=== PATIENT | female | born 1955 | race Caucasian/White ===

== ENCOUNTER 2022-08-04 08:15 | Outpatient (CLI) | payer MEDICARE, BC, SELFPAY ==
--- NOTE | 2022-08-04 08:15 | CRLHL7_ITS ---
For Patients: As a result of the Century Cures Act, medical imaging exams and procedure reports are released immediately into your electronic medical record. You may view this report before your referring provider. If you have questions, please contact your health care provider. HISTORY: Left leg pain. Abnormal x-ray findings. TECHNIQUE: Routine long bone protocol. FINDINGS: There is a benign pedunculated osteochondroma arising from the region of the proximal metaphysis of the left fibula angled distally. This has maximum length on the order of 3 cm. No cartilage cap is identified. No findings for bony stress reaction, fracture or tumor elsewhere. No muscular or subcutaneous fat abnormality is noted. 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 IMPRESSION: Benign pedunculated osteochondroma of the proximal fibula. No findings of concern for malignancy. Dictated by Freddy Andrew MD @ 08/05/2022 10:02:52 AM (Electronically Signed)
--- OUTSIDE RECORDS SUMMARY | 2022-08-04 08:17 | XMS_ITS | Encounter Summary ---
:1955 Author Organization [facility] Address [address], [place] [address] Care Team Providers Name Role Phone Unavailable Primary Care Provider Unavailable Reason for Visit Reason Comments Skin Check Encounter Details Date Type Department Care Team Description 07/04/2019 Initial Consult Ravi Sunshine skin (Primary Dx); Dermatology AMD Seborrheic keratosis; [address] [employer] [facility] [place] [address] [facility] [phone] [place], [place] [address] Social History Tobacco Use Types Packs/Day Years Used Date Smoking Tobacco: Never Assessed Sex Assigned at Date Recorded Not on file documented as of this encounter Patient Instructions Patient InstructionsMelanie Fernandez MA - 07/04/2019 9:00 AM CDT Liquid Nitrogen Treatment (Cryotherapy) How it Works: Liquid nitrogen (Cryotherapy) is a cold liquified gas, with a temperature of -321?? F.It's used to freeze and destroy superficial skin growths. Treatment Goals: Treatment with liquid nitrogen may cause the treated area to appear red or swollen anywhere from a few hours to a couple of days. Usually a scab/crust forms, which will fall off by itself in 1 to 3 weeks. The skin growth will fall off with the scab, leaving healthy new skin. This new skin is typically criminal justice professor, and will usually blend in color-cerda over time. You May Experience: Liquid nitrogen causes stinging and mild pain while the growth is being frozen and then thaws. The worst discomfort occurs during the first five to 10 minutes of the procedure, but can sometimes last significantly longer. A blister, sometimes a blood blister, may form. If this occurs, you may pop the blister with a cleanneedle, but leave the roof of the blister intact on the skin. If this does happen, keep the area covered with a Band-Aid and use Vaseline or antibiotic ointment. Areas that are prone to blistering are the eyelids and hands. The blisters and swelling are part of the treatment and will gradually heal. No special care is needed, you can wash as usual and return to your normal skin care routine. You may use makeup or other cosmetics. You also may experience some redness, swelling, tenderness, weeping,or crusts/scabs. Try not to pick at, itch, or scrub the area. If the treated area feels sore or irritated, you can keep it covered or even use some [id number] hydrocortisone or plain vaseline to make it feel better. Avoid excessive sun exposure since this can result in persistent darkening at the treated sites. PLEASE NOTE: Sometimes, growths have to be re-frozen. If your growth is not cured by liquid nitrogen, please make a return appt. Uncommon: Call the nurse's line below if you have any white, green, or yellow fluid drainage or any sign of an apparent infection. Nurse Line: Skin Cancer: You can get skin cancer anywhere you have skin, regardless of amount of sun exposure. Skin cancer can present many ways, such as a sore that doesn't heal, a pimple that never goes away, a bump that is tender or growing, or pink, scaly patches that never go away. A spot that is: an ugly duckling meaning it doesn't look like your other spots, growing or changing quickly, changing significantly overtime, bleeding, tender or painful. There are three different types of skin cancer: Melanoma: The mole that has gone bad, can look like the ugly duckling mole, or, the mole that doesn't look like your other moles. It can be a mole that is growing quickly or asymmetrically, gettingmultiple dark brown colors, bleeding, or has irregular borders. Basal cell carcinoma (BCC): BCCs may look like a flesh-colored, jamal-like bump or a pinkish patch of skin. BCCs are common on the head, neck, and arms, yet can form anywhere on the body, including thechest, abdomen, and legs. Squamous cell carcinoma (SCC): SCCs can be scaly, pink bumps that are tender and growing. They tend to form on skin that gets frequent sun exposure, such as the rim of the ear, face, neck, arms, chest,and back. SCC have the potential to spread from the skin. Sun Protection Sunscreen- At a minimum SPF 30 for midday sun exposure. For sensitive skin or previous issues with sunscreens try sunscreen with only zinc and/or titanium as active ingredients (typically sensitive skin or baby sunscreens. Photoprotective Clothing- Contain a UPF rating (like SPF but for clothing). This clothing is quick-dry, breathable, good for use at the beach or pool. This clothing can be expensive but significantlydecreases the amount of sunscreen needed. Regular wide-brim hats and long sleeve shirts are also beneficial but may not be as tolerable in theheat. Avoiding midday sun from 10am to 4pm can decrease your amount of UV exposure and decrease your risk for skin cancer and sun damage. Sunscreen What does broad spectrum mean? The best sunscreens protect against all UVB (Burning) rays and UVA (Aging, cAncer, tAnning) rays. What does SPF mean? SPF stands for ???Sun Protection Factor?? and represents the ability to screen only UVB (burning) rays. UVB rays are mostly blocked in all sunscreens, but only those that contain titanium dioxide, zinc oxide, mexoryl or Parsol 1789 (avobenzone) block the UVA spectrum. Zinc oxide is the best of all. Even though a sunscreen is labeled ???UVA/UVB Protection?? that is not entirely accurate because evenpartial protection allows this label. What SPF should I chose? Aim to get a sunscreen that is at least sun protection factor (SPF) 30. SPF 15 provides about 92-93%coverage, SPF 30 about 95-97% coverage, and SPF 45 about 98% coverage. That is to say, SPF 30 is nottwice as good as SPF 15; think of it as a curve graph. If covering your whole body, you should be using 30grams, or one ounce, which is how much is in one shot glass. That???s a THICK layer! Combination sunscreen-insect repellants are not recommended as sunscreen needs to be reapplied every2 hours; insect repellant does not. Sunscreen is not recommended for infants under the age of 6 months. Use clothing, shade and sun avoidance for small infants. Sunscreen clothing and hats are also important for people of all ages. Note that [employer] is a company based out of [place], [place]! Other good items can be found in stores and on-line. Sunscreen sprays are best for re-application only. Most people do not spray enough on to get good enough protection. Recommendation: Use a lotion-based sunscreen to get a good first/base layer. Vitamin D: We get vitamin D through the skin. If you do not get enough sun in the summer to get rayo lines, you should take a vitamin D supplement: 400units for children and 1000units for adults per day. UVA BLOCKERS: Make sure your sunscreen has one of these active ingredients. Everything else in the ???active ingredients?? box of a sunscreen label blocks UVB only. Zinc Oxide (preferred) Titanium dioxide Parsol 1789 (avobenzone) Mexoryl Examples of some good sunscreens Absolutely-natural.com Aveeno Baby Trimble sunscreens Yumiko Blue Lizard BullFrog CaliforniaBaby Coppertone Spectra3 [facility] Elta Fallene/TotalBlock Neutrogena NoAd Vanicream WaterBabies Sticks work great, like Neutrogena pure and free baby SPF 60 stick documented in this encounter Progress Notes Ravi Moody MD - 07/04/2019 9:00 AM CDT DERMATOLOGY VISIT CC: Chief Complaint Patient presents with ??? Skin Check Subjective: Rhonda Berumen is a 63 y.o. female here for skin examination. She is a new patient to Dermatology Clinic. I actually see her who has a history of melanoma. She has a number of brown spots on the trunk that she would like evaluated. She has a history of breast cancer on the right andradiation therapy. She is concerned about the moles under the right breast. She has a few growths on the left forehead and evangelical that are cosmetically bothersome. She is interested in treatment. Otherwise well without further skin complaints. No personal history of skin cancer. Family history of actinic keratoses in her mother. Social history: She is not very good with sunscreen. Objective: Pleasant and cooperative, no acute distress. Skin examination of the head, neck, chest, back, abdomen, all 4 extremities was performed. Mild photodamage over the face neck. She has less than 10 melanocytic nevi with benign features on dermoscopy. She has many, waxy, brown stuck on papules and plaques over the trunk and extremities. In the right inframammary crease she has multiple brown and black stuck on waxy plaques with benign features on dermoscopy. On the left evangelical and forehead she has 4, waxy stuck on papules. A: Rhonda was seen today for skin check. Diagnoses and all orders for this visit: Sun-damaged skin Seborrheic keratosis Multiple pigmented nevi P: Clinical impression reviewed with patient. I reviewed sun protective measures including seeking shade, photo protective clothing, avoiding midday sun, sunscreen, polarized sunglasses. After written informed consent cosmetic treatment of 4 seborrheic keratoses on the left forehead andtemple was performed with liquid nitrogen cryotherapy, single freeze thaw cycle. Postop wound care provided. Return to clinic will be as needed Ravi Moody MD Dermatology - [facility] 07/04/2019 This note was created using voice recognition software and may contain unintended word substitutions. Meds: Reviewed. Problem List: Rhonda does not have a problem list on file. documented in this encounter Plan of Treatment Not on filedocumented as of this encounter Visit Diagnoses Diagnosis Sun-damaged skin - Primary Other chronic dermatitis due to solar ra diation Seborrheic keratosis Other seborrheic keratosis Multiple pigmented nevi Benign neoplasm of skin, site unspecifie d documented in this encounter
--- OUTSIDE RECORDS SUMMARY | 2022-08-04 08:17 | XMS_ITS | Clinical Summary ---
:1955 Author Organization [facility] Address [address] [place] [address] Care Team Providers Name Role Phone Unavailable Primary Care Provider Unavailable Source Comments You are receiving this document as you are listed as the primary care provider,follow-up provider, or the patient has been referred to you for consultation.This is in compliance with the Medicare and Medicaid EHR Incentive Program,which states Providers who transition their patient to another setting of careor provider of care or refers their patient to another provider of care shouldprovide summarycare record for each transition of care or referral. [facility] Allergies No known active allergies Medications Medication Sig Dispensed Refills Start Date End Date Status simvastatin (ZOCOR) 20 Take 20 mg by 0 12/15/2021 Active MG tablet mouth daily at bedtime. triamcinolone Apply topically 0 12/02/2021 Active acetonide (KENALOG) two times daily as 0.1 % ointment needed. Active Problems No known active problems Social History Tobacco Use Types Packs/Day Years Used Date Smoking Tobacco: Never Assessed Sex Assigned at Date Recorded Not on file Plan of Treatment Health Maintenance Due Date Last Done Comments Colon Cancer Screening Plan 1955 Due Hep C Screening (Preventive 1955 Services) Medicare Annual Wellness 1955 Visit Mammogram 1955 COVID-19 Vaccine (#1) [birth year]09/1956 Cholesterol 1999 Dexa 2019 Pneumococcal 65+ Yrs (3) 11/21/2021 11/21/2020, 07/18/2010 Influenza (#1) 2022 07/29/2021, 11/21/2020, 08/06/2020, Additional history exists DTaP/Tdap/Td (3 - Tdap) 07/11/2024 07/11/2014, 03/05/2009 Zoster/Shingles Completed 09/26/2019, 07/04/2019, 03/18/2015 HepA Aged Out No longer eligib le based on patient 's age to complete this topic HepB Aged Out No longer eligib le based on patient 's age to complete this topic Hib Aged Out No longer eligib le based on patient 's age to complete this topic IPV (Polio) Aged Out No longer eligib le based on patient 's age to complete this topic MCV4 Aged Out No longer eligib le based on patient 's age to complete this topic Insurance Payer Benefit Plan / Subscriber ID Effective Dates Phone Addre ss Type Group MEDICARE MEDICARE [id number] 2019-Presen [phone] [facility] BCBS BCBS [place] [employer] [id number] 2019-Presen [phone] [address] [address] Medicare BLUE t [address] [place] [address] Rhonda Berumen MVA/TPL Self [address] (Home) [place] [id number] Rhonda Berumen Non-Covered/Pre Self [address] pay (Home) [place] [id number]
--- OUTSIDE RECORDS SUMMARY | 2022-08-04 08:17 | XMS_ITS | Encounter Summary ---
:1955 Author [facility] Address [address] [address] Care Team Providers Name Role Phone Unavailable Primary Care Provider Unavailable Reason for Visit Reason Comments Skin Exam Fbe, mole under right breast being monitored Encounter Details Date Type Department Care Team Description 02/11/2022 Office Visit Ravi Sunshine, Kanu anne skin (Primary Dx); Dermatology MD Multiple pigmented nevi; [id number] [facility] [place] [address] [address] [phone] [place], [place] [id number] (Wo rk) Social History Tobacco Use Types Packs/Day Years Used Date Smoking Tobacco: Never Assessed Sex Assigned at Date Recorded Not on file documented as of this encounter Progress Notes Ravi Moody MD - 02/11/2022 9:45 AM CDT DERMATOLOGY VISIT Rhonda Berumen 1955 [id number] Chief Complaint Patient presents with ??? Skin Exam Fbe, mole under right breast being monitored Problem List None Subjective: 66 y.o. female Here today for follow-up. No personal history of skin cancer. I see her who has a history of melanoma. She has 1 darker brown spot on the right breast that she is monitoring. She has a history of breast cancer on the right as well as radiation therapy. Noted lesions of concern. Family history of actinic keratoses in her mother. Objective: Skin examination of the head, neck, chest, back, abdomen, 4 extremities was performed. Mild photodamage over the face and neck. She has less than 10 melanocytic nevi without concerning features on dermoscopy. She has many waxy papules and plaques over the trunk and extremities. On right inferior breast she has a brown and black stuck on waxy plaque with milia like cysts, commute to like openings, and cerebriform surface on dermoscopy. Assessment/Plan: 1. Sun-damaged skin 2. Multiple pigmented nevi 3. Seborrheic keratoses Clinical impression reviewed with patient. Reassurance provided. Monitor lesions for change/recurrence. Sun protection and sunscreen recommended. Skin cancer awareness reviewed. Seborrheic keratosis of the right breast: Clinical impression reviewed. Monitor. Return to clinic as needed Ravi Moody MD Dermatology - [facility] 02/11/2022 This note was created using voice recognition software and may contain unintended word substitutions. documented in this encounter Plan of Treatment Not on filedocumented as of this encounter Visit Diagnoses Diagnosis Sun-damaged skin - Primary Other chronic dermatitis due to solar ra diation Multiple pigmented nevi Benign neoplasm of skin, site unspecifie d Seborrheic keratoses documented in this encounter
--- OUTSIDE RECORDS SUMMARY | 2022-08-04 08:18 | XMS_ITS | Encounter Summary ---
:1955 Author Organization [facility] Address [address] [place] [address] Care Team Providers Name Role Phone Darryl Stallings M.D. Primary Care Provider [phone] Reason for Referral Outpatient (Routine) - Closed Specialty Diagnoses / Procedures Referred By Contact Refer red To Contact Family Medicine Darryl Stallings [facility] [place] M.D. [address] [place] [address] Referral ID Status Reason Start Date Expiration Date Visits Requ ested Visits Authorized [id number] Closed 07/09/2020 07/09/2021 1 1 Encounter Details Date Type Department Care Team Description 07/09/2020 Orders Only [facility] Darryl Stallings M.B.B.S., M.D. [address] [place], [place] [phone] (Wo rk) Social History Tobacco Use Types Packs/Day Years Used Date Smoking Tobacco: Never Smokeless Tobacco: Never Alcohol Use Standard Drinks/Week Comments Yes 1 (1 standard drink = 0.6 oz pure alcoho l) Alcohol Habits Answer Date Recorded How often do you have a drink containing alcohol? Monthly or less 04/19/2022 How many drinks containing alcohol do you have on a 1 or 2 04/19/2022 typical day when you are drinking? How often do you have six or more drinks on one Never 04/19/2022 occasion? Social Isolation Answer Date Recorded In a typical week, how many times do you Twice a week 04/19/2022 talk on the phone with family, friends, or neighbors? How often do you get together with friends Three times a wee k 04/19/2022 or relatives? How often do you attend gnosticist or taoism More than 4 time s per year 04/19/2022 services? Do you belong to any clubs or organizations Yes 04/19/2022 such as gnosticist groups, unions, fraternal or athletic groups, or school groups? How often do you attend meetings of the More than 4 times pe r year 04/19/2022 clubs or organizations you belong to? Are you now , , , 04/19/2022 , never or living with a partner? Physical Activity Answer Date Recorded On average, how many days per week do you engage in moderate to 5 days 04/19/2022 strenuous exercise (like walking fast, running, jogging, dancing, swimming, biking, or other activities that cause a light or heavy sweat)? On average, how many minutes do you engage in exercise at th is 50 min 04/19/2022 level? Stress Answer Date Recorded Do you feel stress - tense, restless, nervous, or To some ex tent 04/19/2022 anxious, or unable to sleep at night because your mind is troubled all the time - these days? Financial Resource Strain Answer Date Recorded How hard is it for you to pay for the very basics like Not v mitul hard 04/19/2022 food, housing, medical care, and heating? Intimate Partner Violence Answer Date Recorded Within the last year, have you been afraid of your partner o r No 04/19/2022 ex-partner? Within the last year, have you been humiliated or emotionall y No 04/19/2022 abused in other ways by your partner or ex-partner? Within the last year, have you been kicked, hit, slapped, or No 04/19/2022 otherwise physically hurt by your partner or ex-partner? Within the last year, have you been raped or forced to have any No 04/19/2022 kind of sexual activity by your partner or ex-partner? Food Insecurity Answer Date Recorded Within the past 12 months, you worried that your food would Never true 04/19/2022 run out before you got money to buy more. Within the past 12 months, the food you bought just didn't N ever true 04/19/2022 last and you didn't have money to get more. Transportation Needs Answer Date Recorded In the past 12 months, has lack of transportation kept you f rom No 04/19/2022 medical appointments or from getting medications? In the past 12 months, has lack of transportation kept you f rom No 04/19/2022 meetings, work, or getting things needed for daily living? Housing Stability Answer Date Recorded In the last 12 months, was there a time when you were not ab le No 04/19/2022 to pay the mortgage or rent on time? In the last 12 months, how many places have you lived? 1 04/19/2022 In the last 12 months, was there a time when you did not hav e a No 04/19/[address] sleep or slept in a assisted (including now)? Education Answer Date Recorded What is the highest level of school Associate degree: academ program 06/27/2020 you have completed or the highest degree you have received? Sex Assigned at Date Recorded Female 06/28/2018 6:37 PM CDT documented as of this encounter Plan of Treatment Scheduled Referrals Name Type Priority Associated Diagnoses Order S [facility] Medicine Outpatient Referral Routine Expec doreen: office visit 07/23/2020, (clinic) Expires: 07/09/2023 documented as of this encounter Visit Diagnoses Not on filedocumented in this encounter Care Teams Biodiesel Production Technician Relationship Specialty Start Date End Date Darryl Stallings M.B.BCamiloSCamilo, MRosa. PCP - General Family Medicine 06/10/[address] [place] [address] [place] [phone] documented as of this encounter
--- OUTSIDE RECORDS SUMMARY | 2022-08-04 08:18 | XMS_ITS | Encounter Summary ---
:1955 Author Organization [facility] Address [address] [place] [address] Care Team Providers Name Role Phone Darryl Stallings M.D. Primary Care Provider [phone] Reason for Referral Outpatient (Routine) - Authorized Specialty Diagnoses / Procedures Referred By Contact Refer red To Contact Diagnoses Density Breast Mague Silva M.D. [facility] Procedures NM Molecular Breast Imaging [address] [place] [phone] Referral ID Status Reason Start Date Expiration Date Visits V isits Requested Authorized [id number] Authorized 01/28/2022 01/28/2023 6 6 Reason for Visit Outpatient (Routine) - Authorized Specialty Diagnoses / Procedures Referred By Contact Refer red To Contact Diagnoses Density Breast Mague Silva M.D. [facility] Procedures NM Molecular Breast Imaging [address] [place] [phone] Referral ID Status Reason Start Date Expiration Date Visits V isits Requested Authorized [id number] Authorized 01/28/2022 01/28/2023 6 6 Encounter Details Date Type Department Care Team Description 04/21/2022 Hospital Encounter Department of Mague Silva Breast Radiology in [place], [place] [address] [facility] [address] [place] [phone] Social History Tobacco Use Types Packs/Day Years [...] or relatives? How often do you attend adventist or buddhism More than 4 time s per year 04/19/2022 services? Do you belong to any clubs or organizations Yes 04/19/2022 such as adventist groups, unions, fraternal or athletic groups, or [...] place to sleep or slept in a custodial (including now)? Education Answer Date Recorded What is the highest level of school Associate degree: [employer] program 04/19/2022 you have completed or the highest degree you have received? Sex Assigned at Date Recorded Female 06/28/2018 6:37 PM CDT documented as of this encounter Medications at Time of Discharge Medication Sig Dispensed Refills Start Date End Date calcium citrate/vitamin Take 1 tablet by mouth 0 09/05/2009 D3 (CITRACAL REGULAR daily. ORAL) magnesium 30 mg tablet Take 30 mg by mouth 0 01/17 daily. multivitamin tablet Take 1 tablet by mouth 0 08/19 daily. potassium gluconate 2.5 Take 1 tablet by mouth 0 02/11/2015 mEq tablet daily. simvastatin (ZOCOR) 20 mg Take 20 mg by mouth at 0 12/27/2020 tablet bedtime. triamcinolone (KENALOG) Apply 1 application 0 0.1 % ointment topically 2 (two) times a day as needed. documented as of this encounter Plan of Treatment Not on filedocumented as of this encounter Procedures Procedure Name Priority Date/Time Associated Comments Diagnosis NM MBI BREAST RAD - Routine 04/21/2022 11:46 Density Breast Results for this STUDY (most inpatients AM CDT procedure a re in and all the results outpatients) section. documented in this encounter Results NM Molecular Breast Imaging (04/21/2022 11:46 AM CDT) Anatomical Region Laterality Modality Breast, Nuclear Medicine [facility] LOS, Breast Imaging ARZ LOS, N/ A Nuclear Medicine Breast Imaging FLA LOS, Nuclear Medicine Specimen (Source) Anatomical Collection Method Collection Time Re ceived Time Location / / Volume Laterality 04/21/2022 12:53 PM CDT Impressions 04/21/2022 12:55 PM CDT No MBI findings of malignancy. RECOMMENDATION: ??Annual Screening Mammo gram ASSESSMENT: ??BI-RADS: 2: Benign. Narrative 04/21/2022 12:55 PM CDT EXAM: ??NM MOLECULAR BREAST IMAGING INDICATION: ??Dense breast tissue HORMONAL STATUS: ??Postmenopausal. COMPARISON: ??Prior exam(s) were availab le and reviewed for comparison. TECHNIQUE: ??Bilateral CC and MLO views obtained on a dual-head CZT gamma camera after radiotracer injection. ?? RADIOISOTOPE DOSE: ?? Route: intravenous technetium Tc 99m sestamibi injection (M BI) (Tc-99m SESTAMIBI),8.1 millicurie BACKGROUND UPTAKE INTENSITY: ??b. Minima l/Mild FINDINGS: ?? RIGHT BREAST: ??No abnormal radiotracer uptake in the right breast. LEFT BREAST: ??No abnormal radiotracer u ptake in the left breast. Procedure Note Yomaira Horta M.D. - 04/21/2022Formatti ng of this note might be different from the original. EXAM: NM MOLECULAR BREAST IMAGING INDICATION: Dense breast tissue HORMONAL STATUS: Postmenopausal. COMPARISON: Prior exam(s) were available and reviewed for comparison. TECHNIQUE: Bilateral CC and MLO views ob tained on a dual-head CZT gamma camera after radiotracer injection. RADIOISOTOPE DOSE: Route: intravenous technetium Tc 99m sestamibi injection (M BI) (Tc-99m SESTAMIBI),8.1 millicurie BACKGROUND UPTAKE INTENSITY: b. Minimal/ Mild FINDINGS: RIGHT BREAST: No abnormal radiotracer up take in the right breast. LEFT BREAST: No abnormal radiotracer upt esa in the left breast. IMPRESSION: No MBI findings of malignancy. RECOMMENDATION: Annual Screening Mammogr am ASSESSMENT: BI-RADS: 2: Benign. [facility] [place] PROCEDURES documented in this encounter Visit Diagnoses Diagnosis Density Breast documented in this encounter Administered Medications Inactive Administered Medications - up to 3 most recent administrations Medication Order MAR Action Action Date Dose Rate Site technetium Tc 99m Given 04/21/2022 10:51 AM 8.1 millicuries sestamibi injection (MBI) CDT (Tc-99m SESTAMIBI) 8.1 millicurie, intravenous, Once, On Wed04/21/22 at 1115, For 1 dose documented in this encounter Care Teams Geology Professor Relationship Specialty Start Date End Date Darryl Stallings M.B.B.S., M.D. PCP - General Family Medicine 06/10/[address] [place] [phone] documented as of this encounter
--- OUTSIDE RECORDS SUMMARY | 2022-08-04 08:18 | XMS_ITS | Encounter Summary ---
:1955 Author Organization [facility] Address [address] [place] [phone] Care Team Providers Name Role Phone Darryl Stallings M.D. Primary Care Provider [phone] Reason for Visit Reason Comments COVID Nurse Line Encounter Details Date Type Department Care Team Description 10/31/2020 Clinical Communication Breast Diagnostic [facility] in [place], [facility] [address] [place], [place] [address] [place] [phone] [place], [place] [phone] (Work) [phone] Social History Tobacco Use Types Packs/Day Years [...] or relatives? How often do you attend anglican or restorationism More than 4 time s per year 04/19/2022 services? Do you belong to any clubs or organizations Yes 04/19/2022 such as anglican groups, unions, fraternal or athletic groups, or [...] place to sleep or slept in a correction (including now)? Education Answer Date Recorded What is the highest level of school Associate degree: [employer] program 06/27/2020 you have completed or the highest degree you have received? Sex Assigned at Date Recorded Female 06/28/2018 6:37 PM CDT documented as of this encounter Miscellaneous Notes Telephone Encounter - Jenna Mckeon - 10/31/2020 4:54 PM CST What is the purpose of the call?: Standard Appointment Process Standard Appointment Process Have you tested positive for COVID-19 in the last 20 days OR do you have a pending COVID-19 test because you had symptoms?: No, neither apply What region is the appointment being requested?: More than 20 days [facility], [facility] or [facility] In the past 14 days have you had close contact* with a person who has a LABORATORY CONFIRMED case ofCOVID-19?: No exposure noted. Follow local process (End Screening) Plan: Endpoint recommendation: Followed regional OTG *Reminder if sending patient for testing in [facility] or [facility], route encounter to the correct testing pool. 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 PCP - General Family Medicine 06/10/[address] [place] [phone] documented as of this encounter
--- OUTSIDE RECORDS SUMMARY | 2022-08-04 08:18 | XMS_ITS | Encounter Summary ---
:1955 Author Organization [facility] Address [address] [place] [address] Care Team Providers Name Role Phone Darryl Stallings M.D. Primary Care Provider [phone] Reason for Visit Reason Comments Establish Care Appointment Request (Routine) - Closed Specialty Diagnoses / Procedures Referred By Contact Refer red To Contact Breast Clinic Mague Silva M.D. [address] [place] [address] Referral ID Status Reason Start Date Expiration Date Visits Requ ested Visits Authorized [id number] Closed 10/31/2020 10/31/2021 1 1 Encounter Details Date Type Department Care Team Description 03/19/2021 Office Visit Breast Diagnostic Mague Silva er Breast Personal History (Primary Dx); Clinic in [place] Kothari M.D. Density Breast; [place] 200 [facility] Screening Mammogram Breast Cancer 200 [place] [phone] Social History Tobacco Use Types Packs/Day Years [...] or relatives? How often do you attend buddhist or jewish More than 4 time s per year 04/19/2022 services? Do you belong to any clubs or organizations Yes 04/19/2022 such as buddhist groups, unions, fraternal or athletic groups, or [...] place to sleep or slept in a fci (including now)? Education Answer Date Recorded What is the highest level of school Associate degree: [employer], 03/16/2021 you have completed or the highest technical, or vocational p margaretram degree you have received? Sex Assigned at Date Recorded Female 06/28/2018 6:37 PM CDT documented as of this encounter Last Filed Vital Signs Vital Sign Reading Time Taken Comments Blood Pressure 100/67 03/19/2021 2:36 PM CDT Pulse 71 03/19/2021 2:36 PM CDT Temperature - - Respiratory Rate - - Oxygen Saturation - - Inhaled Oxygen Concentration - - Weight 62 kg (136 lb 11 oz) 03/19/2021 2:36 PM CDT Height 174 cm (5' 8.5) 03/19/2021 2:36 PM CDT Body Mass Index 20.48 03/19/2021 2:36 PM CDT documented in this encounter Progress Mague Lam M.D. - 03/19/2021 3:00 PM CDT SUBJECTIVE CHIEF COMPLAINT / REASON FOR VISIT Recheck visit HISTORY OF PRESENT ILLNESS Patient is a very pleasant 65 y.o. year old woman who returns now for follow up on her breast concerns. She has a history of ILC diagnosed 2009 s/p WLE, radiation and adjuvant T followed by 5 years of endocrine therapy. She returns today for breast cancer screening. She is doing well without any new breast concerns, nomasses, nodules, nipple changes or discharge. Unfortunately recently had a fall and several compression fractures in the neck requiring a brace, however she is hoping the brace can come off soon. The following portions of the patient's history were reviewed and updated as appropriate: allergies,current medications, family history, medical history, social history, surgical history and problem list. OBJECTIVE PHYSICAL EXAM BP 100/67 (BP Location: Left arm, Patient Position: Sitting, Cuff Size: Regular) Pulse 71 Ht 174cm Wt 62 kg LMP 10/18/2011 (Within Months) BMI 20.48 kg/m?? Constitutional: Well-developed and well-nourished. No distress. Neck: Neck supple. No thyromegaly present. Breast: Right breast smaller than left with inferior dimpling secondary to postoperative change. Nipples are everted bilaterally. No overlying skin changes. On palpation of the bilateral breasts, no masses, nodules, or areas of thickening appreciated. Lymphadenopathy: No cervical, supraclavicular, infraclavicular or axillary lymphadenopathy palpable. Skin: Skin is warm and dry. No rash noted. Psychiatric: She has a normal mood and affect. ASSESSMENT / PLAN #1 Personal history of breast cancer 2009 s/p WLE, radiation, adjuvant TC and endocrine therapy for 5 years #2 Dense breast tissue Screening mammogram was benign without changes or areas of concern. She will return in 1 year for clinical exam and imaging. BREAST CLINIC FOLLOW-UP RECOMMENDATIONS: Bilateral screening mammogram next due in February 2022. MBI next due in February 2022. Clinical breast exam next due in February 2022. Breast self-awareness encouraged and the patient is advised to seek medical attention for any breastrelated concerns. PATIENT EDUCATION Ready to learn, no apparent learning barriers were identified; learning preferences include listening. Explained diagnosis and treatment plan; patient expressed understanding of the content. documented in this encounter Plan of Treatment Not on filedocumented as of this encounter Visit Diagnoses Diagnosis Cancer Breast Personal History - Primary Density Breast Screening Mammogram Breast Cancer documented in this encounter Care Teams Farm Machinery Engine Mechanic Relationship Specialty Start Date End Date Darryl Stallings M.B.B.S., M.D. PCP - General Family Medicine 06/10/[address] [place] [phone] documented as of this encounter
--- OUTSIDE RECORDS SUMMARY | 2022-08-04 08:18 | XMS_ITS | Encounter Summary ---
:1955 Author Organization [facility] Address [address] [place] [address] Care Team Providers Name Role Phone Darryl Stallings M.D. Primary Care Provider [phone] Reason for Referral Outpatient (Routine) - Closed Specialty Diagnoses / Procedures Referred By Contact Refer red To Contact Diagnoses Osteoporosis Without Pathological Fracture Oste[facility] Procedures BMD Bone Density Spine Hips P.A.-C. [address] [place] [phone] Referral ID Status Reason Start Date Expiration Date Visits Requ ested Visits Authorized [id number] Closed 07/02/2020 07/02/2021 1 1 Reason for Visit Outpatient (Routine) - Closed Specialty Diagnoses / Procedures Referred By Contact Refer red To Contact Diagnoses Osteoporosis Without Pathological Fracture Osteopenia [facility] Procedures BMD Bone Density Spine Hips P.A.-C. [address] [place] [phone] Referral ID Status Reason Start Date Expiration Date Visits Requ ested Visits Authorized [id number] Closed 07/02/2020 07/02/2021 1 1 Encounter Details Date Type Department Care Team Description 06/26/2022 Hospital Encounter Department of Corinne Coley Oste oporosis Without Pathological Fracture ; Radiology, Martínez Newby P.A.-C. Osteopenia; Building, in [address] [place] [address] Osteoporosis Without Pathological Fractu re [facility] [phone] [place] [address] [place], [place] (Work) [phone] [phone] Social History Tobacco Use Types Packs/Day Years [...] or relatives? How often do you attend scientology or jainism More than 4 time s per year 04/19/2022 services? Do you belong to any clubs or organizations Yes 04/19/2022 such as scientology groups, unions, fraternal or athletic groups, or [...] minutes do you engage in exercise at is 50 min 04/19/2022 level? Stress Answer [...] place to sleep or slept in a [facility] (including now)? Education Answer Date Recorded What is the highest level of school Associate degree: academ [employer] program 04/19/2022 you have completed or the [...] Procedure Name Priority Date/Time Associated Comments Diagnosis BMD BONE DENSITY RAD - Routine 06/26/2022 8:49 Osteoporosis Results for this SPINE HIPS (most inpatients AM CDT Without procedure a re in and all Pathological the results outpatients) Fracture section. Osteopenia documented in this encounter Results BMD Bone Density Spine Hips (06/26/2022 8:49 AM CDT) Anatomical Region Laterality Modality Hip, Lumbar Spine, Nuclear Medicine RST LOS, N/A Radiographic Imaging Musculoskeletal ARZ LOS, Muskuloskeletal FLA LOS Specimen (Source) Anatomical Collection Method Collection Time Re ceived Time Location / / Volume Laterality 06/26/2022 10:48 AM CDT Impressions 06/26/2022 10:48 AM CDT Osteoporosis AP Spine (region: L1-L4) ?? Narrative 06/26/2022 10:48 AM CDT EXAM: ??BMD BONE DENSITY SPINE HIPS Bone Mineral Density (BMD) analysis perf ormed on [employer] with serial number [id number]. COMPARISON: Serial Comparisons Left Total Hip results: Exam Date ? BMD ? T-sco re ? 11/24/2010 ?0.819 g/cm2 ?? -1.5 ? ... ? ... ? .. . ? 01/13/2012 ? 0.810 g/cm2 ?? -1.6 ? 01/13/2012 ? 0.818 g/cm2 ?? -1.5 ? 01/16/2013 ?0.835 g/cm2 ?? -1.4 ? 01/16/2013 ?0.837 g/cm2 ?? -1.4 ? 02/11/2015 ? 0.797 g/cm2 ?? -1.7 ? 06/30/2016 ? 0.773 g/cm2 ?? -1.9 ? 06/21/2018 ?0.754 g/cm2 ?? -2.0 ? 07/02/2020 ? 0.748 g/cm2 ?? -2.1 ? 06/26/2022 ?0.724 g/cm2 ?? -2.3 ? Change vs. Previous (difference): -0.024 g/cm2 Change vs. Previous (%): -3.2 % The absolute BMD change from previous, - 0.024 g/cm2, is greater than least significant change : No The absolute BMD change from baseline, - 0.095 g/cm2, is greater than least significant change : Yes Right Total Hip results: Exam Date ? BMD ? T-sco re ? 11/24/2010 ?0.856 g/cm2 ?? -1.2 ? ... ? ... ? .. . ? 01/13/2012 ? 0.858 g/cm2 ?? -1.2 ? 01/13/2012 ? 0.861 g/cm2 ?? -1.2 ? 01/16/2013 ?0.852 g/cm2 ?? -1.2 ? 01/16/2013 ?0.856 g/cm2 ?? -1.2 ? 02/11/2015 ? 0.837 g/cm2 ?? -1.4 ? 06/30/2016 ? 0.817 g/cm2 ?? -1.5 ? 06/21/2018 ?0.811 g/cm2 ?? -1.6 ? 07/02/2020 ? 0.801 g/cm2 ?? -1.6 ? 06/26/2022 ?0.781 g/cm2 ?? -1.8 ? Change vs. Previous (difference): -0.020 g/cm2 Change vs. Previous (%): -2.5 % The absolute BMD change from previous, - 0.020 g/cm2, is greater than least significant change : No The absolute BMD change from baseline, - 0.075 g/cm2, is greater than least significant change : Yes Combined Total Hip results: Exam Date ? BMD ? T-sco re ? 11/24/2010 ?0.837 g/cm2 ?? -1.4 ? ... ? ... ? .. . ? 01/13/2012 ? 0.834 g/cm2 ?? -1.4 ? 01/13/2012 ? 0.839 g/cm2 ?? -1.3 ? 01/16/2013 ?0.843 g/cm2 ?? -1.3 ? 01/16/2013 ?0.846 g/cm2 ?? -1.3 ? 02/11/2015 ? 0.817 g/cm2 ?? -1.5 ? 06/30/2016 ? 0.795 g/cm2 ?? -1.7 ? 06/21/2018 ?0.783 g/cm2 ?? -1.8 ? 07/02/2020 ? 0.774 g/cm2 ?? -1.9 ? 06/26/2022 ?0.752 g/cm2 ?? -2.0 ? Change vs. Previous (difference): -0.022 g/cm2 Change vs. Previous (%): -2.8 % The absolute BMD change from previous, - 0.022 g/cm2, is greater than least significant change : No The absolute BMD change from baseline, - 0.085 g/cm2, is greater than least significant change : Yes Spine results: Exam Date ? BMD ? T-sco re ? 11/24/2010 ?0.953 g/cm2 ?? -1.9 ? ... ? ... ? .. . ? 01/13/2012 ? 0.962 g/cm2 ?? -1.9 ? 01/13/2012 ? 0.957 g/cm2 ?? -1.9 ? 01/16/2013 ?0.967 g/cm2 ?? -1.8 ? 01/16/2013 ?0.954 g/cm2 ?? -1.9 ? 02/11/2015 ? 0.932 g/cm2 ?? -2.1 ? 06/30/2016 ? 0.912 g/cm2 ?? -2.3 ? 06/21/2018 ?0.911 g/cm2 ?? -2.3 ? 07/02/2020 ? 0.928 g/cm2 ?? -2.2 ? 06/26/2022 ?0.885 g/cm2 ?? -2.5 ? Change vs. Previous (difference): -0.043 g/cm2 Change vs. Previous (%): -4.6 % The absolute BMD change from previous, - 0.043 g/cm2, is greater than the least significant ch jesus alberto: Yes The absolute BMD change from baseline, - 0.068 g/cm2, is greater than the least significant ch jesus alberto: Yes FINDINGS: Left Hip: Femur Neck: BMD = 0.742 g/cm2 T-score = -2.1 ?Z-score = -0.5 Total Hip: BMD = 0.724 g/cm2 T-score = -2.3 ?Z-score = -0.8 Right Hip: Femur Neck: BMD = 0.836 g/cm2 T-score = -1.5 ?? Z-score = 0.2 Total Hip: BMD = 0.781 g/cm2 T-score = -1.8 ?Z-score = -0.4 Lumbar Spine: L1: BMD = 0.865 g/cm2 L2: BMD = 0.856 g/cm2 L3: BMD = 0.911 g/cm2 L4: BMD = 0.901 g/cm2 Total Lumbar Spine (L1-L4): BMD = 0.885 g/cm2 T-score = -2.5 ?Z-score = -0.7 Trabecular Bone Score: L1-L4: TBS = 1.271 < 1.23: low 1.23 -1.31: borderline > 1.31: normal A low TBS has been associated with incre ased risk of fractures in certain populations. TBS should not be used alone to determine treatment recommendations. It can be used in conjunction with BMD and FRAX to inform management. Please note: A more comprehensive DXA re port, including images and graphs, is available in [email or web address]. In the absence of other causes of low BM D or demonstrated skeletal fragility, osteoporosis may be diagnosed in post-menopausal women and m en at or above age 50 when the T-score is at or below -2.5 as defined by the WHO. Low bone density is present at T-scores between -1 and - 2.5. The diagnosis in pre-menopausal women and men < age 50 ca n be based on low bone density or evidence of skeletal fragility in the appropriate clinical se tting. Procedure Note Betty Senior M.D. - 06/26/2022Form atting of this note might be different from the original. EXAM: BMD BONE DENSITY SPINE HIPS Bone Mineral Density (BMD) analysis perf ormed on [employer] with serial number [id number]. COMPARISON: Serial Comparisons Left Total Hip results: Exam Date BMD T-score 11/24/2010 0.819 g/cm2 -1.5 ... ... ... 01/13/2012 0.810 g/cm2 -1.6 01/13/2012 0.818 g/cm2 -1.5 01/16/2013 0.835 g/cm2 -1.4 01/16/2013 0.837 g/cm2 -1.4 02/11/2015 0.797 g/cm2 -1.7 06/30/2016 0.773 g/cm2 -1.9 06/21/2018 0.754 g/cm2 -2.0 07/02/2020 0.748 g/cm2 -2.1 06/26/2022 0.724 g/cm2 -2.3 Change vs. Previous (difference): -0.024 g/cm2 Change vs. Previous (%): -3.2 % The absolute BMD change from previous, - 0.024 g/cm2, is greater than least significant change : No The absolute BMD change from baseline, - 0.095 g/cm2, is greater than least significant change : Yes Right Total Hip results: Exam Date BMD T-score 11/24/2010 0.856 g/cm2 -1.2 ... ... ... 01/13/2012 0.858 g/cm2 -1.2 01/13/2012 0.861 g/cm2 -1.2 01/16/2013 0.852 g/cm2 -1.2 01/16/2013 0.856 g/cm2 -1.2 02/11/2015 0.837 g/cm2 -1.4 06/30/2016 0.817 g/cm2 -1.5 06/21/2018 0.811 g/cm2 -1.6 07/02/2020 0.801 g/cm2 -1.6 06/26/2022 0.781 g/cm2 -1.8 Change vs. Previous (difference): -0.020 g/cm2 Change vs. Previous (%): -2.5 % The absolute BMD change from previous, - 0.020 g/cm2, is greater than least significant change : No The absolute BMD change from baseline, - 0.075 g/cm2, is greater than least significant change : Yes Combined Total Hip results: Exam Date BMD T-score 11/24/2010 0.837 g/cm2 -1.4 ... ... ... 01/13/2012 0.834 g/cm2 -1.4 01/13/2012 0.839 g/cm2 -1.3 01/16/2013 0.843 g/cm2 -1.3 01/16/2013 0.846 g/cm2 -1.3 02/11/2015 0.817 g/cm2 -1.5 06/30/2016 0.795 g/cm2 -1.7 06/21/2018 0.783 g/cm2 -1.8 07/02/2020 0.774 g/cm2 -1.9 06/26/2022 0.752 g/cm2 -2.0 Change vs. Previous (difference): -0.022 g/cm2 Change vs. Previous (%): -2.8 % The absolute BMD change from previous, - 0.022 g/cm2, is greater than least significant change : No The absolute BMD change from baseline, - 0.085 g/cm2, is greater than least significant change : Yes Spine results: Exam Date BMD T-score 11/24/2010 0.953 g/cm2 -1.9 ... ... ... 01/13/2012 0.962 g/cm2 -1.9 01/13/2012 0.957 g/cm2 -1.9 01/16/2013 0.967 g/cm2 -1.8 01/16/2013 0.954 g/cm2 -1.9 02/11/2015 0.932 g/cm2 -2.1 06/30/2016 0.912 g/cm2 -2.3 06/21/2018 0.911 g/cm2 -2.3 07/02/2020 0.928 g/cm2 -2.2 06/26/2022 0.885 g/cm2 -2.5 Change vs. Previous (difference): -0.043 g/cm2 Change vs. Previous (%): -4.6 % The absolute BMD change from previous, - 0.043 g/cm2, is greater than the least significant ch jesus alberto: Yes The absolute BMD change from baseline, - 0.068 g/cm2, is greater than the least significant ch jesus alberto: Yes FINDINGS: Left Hip: Femur Neck: BMD = 0.742 g/cm2 T-score = -2.1 Z-score = -0.5 Total Hip: BMD = 0.724 g/cm2 T-score = -2.3 Z-score = -0.8 Right Hip: Femur Neck: BMD = 0.836 g/cm2 T-score = -1.5 Z-score = 0.2 Total Hip: BMD = 0.781 g/cm2 T-score = -1.8 Z-score = -0.4 Lumbar Spine: L1: BMD = 0.865 g/cm2 L2: BMD = 0.856 g/cm2 L3: BMD = 0.911 g/cm2 L4: BMD = 0.901 g/cm2 Total Lumbar Spine (L1-L4): BMD = 0.885 g/cm2 T-score = -2.5 Z-score = -0.7 Trabecular Bone Score: L1-L4: TBS = 1.271 < 1.23: low 1.23 -1.31: borderline > 1.31: normal A low TBS has been associated with incre ased risk of fractures in certain populations. TBS should not be used alone to determine treatment recommendations. It can be used in conjunction with BMD and FRAX to inform management. Please note: A more comprehensive DXA re port, including images and graphs, is available in [email or web address]. In the absence of other causes of low BM D or demonstrated skeletal fragility, osteoporosis may be diagnosed in post-menopausal women and m en at or above age 50 when the T-score is at or below -2.5 as defined by the WHO. Low bone density is present at T-scores between -1 and - 2.5. The diagnosis in pre-menopausal women and men < age 50 ca n be based on low bone density or evidence of skeletal fragility in the appropriate clinical se tting. IMPRESSION: Osteoporosis AP Spine (region: L1-L4) Corinne Coley P.A.-C. IMKatrin DXA PROCEDURES documented in this encounter Visit Diagnoses Diagnosis Osteoporosis Without Pathological Fractu re Osteopenia documented in this encounter Care Teams Private Investigator Relationship Specialty Start Date End Date Darryl Stallings M.B.B.S., M.D. PCP - General Family Medicine 06/10/[address] [place] [address] SABINO Castellano [phone] documented as of this encounter
--- OUTSIDE RECORDS SUMMARY | 2022-08-04 08:18 | XMS_ITS | Encounter Summary ---
:1955 Author Organization [facility] Address [address] [place] [address] Care Team Providers Name Role Phone Darryl Stallings M.D. Primary Care Provider [phone] Encounter Details Date Type Department Care Team Description 06/24/2021 Orders Only [facility] PCP [facility] MNT Darryl Stallings [facility] Kristy De Los SantosBCamiloSCamilo, Diabetes Hakan byrd M.D. [address] [place] [phone] Social History Tobacco Use Types Packs/Day Years [...] or relatives? How often do you attend rastafarian or episcopal More than 4 time s per year 04/19/2022 services? Do you belong to any clubs or organizations Yes 04/19/2022 such as rastafarian groups, unions, fraternal or athletic groups, or [...] or the highest technical, or vocational p yoselin degree you have received? Sex Assigned at Date Recorded Female 06/28/2018 6:37 PM CDT documented as of this encounter Plan of Treatment Not on filedocumented as of this encounter Visit Diagnoses Diagnosis Screening Examination Diabetes Mellitus documented in this encounter Care Teams Employee Services Manager Relationship Specialty Start Date End Date Darryl Stallings M.B.B.S., [place]. PCP - General Family Medicine 06/10/[address] [place] [address] [place] [phone] documented as of this encounter
--- OUTSIDE RECORDS SUMMARY | 2022-08-04 08:18 | XMS_ITS | Encounter Summary ---
:1955 Author Organization [facility] Address [address] [place] [address] Care Team Providers Name Role Phone Darryl Stallings M.D. Primary Care Provider [phone] Reason for Referral Outpatient (Routine) - Closed Specialty Diagnoses / Procedures Referred By Contact Refer red To Contact Diagnoses Screening Mammogram Average Risk Patient Mague Silva [place] Reg ion Procedures BI Breast Screening Bilateral with Tomosynthesis M.D. [address] [place] [phone] Referral ID Status Reason Start Date Expiration Date Visits Requ ested Visits Authorized [id number] Closed 01/28/2022 01/28/2023 1 1 Reason for Visit Outpatient (Routine) - Closed Specialty Diagnoses / Procedures Referred By Contact Refer red To Contact Diagnoses Screening Mammogram Average Risk Patient Mague Silva [place] Reg ion Procedures BI Breast Screening Bilateral with Tomosynthesis M.DCamilo [address] [place] [phone] Referral ID Status Reason Start Date Expiration Date Visits Requ ested Visits Authorized [id number] Closed 01/28/2022 01/28/2023 1 1 Encounter Details Date Type Department Care Team Description 04/21/2022 Hospital Encounter Department of Mague Silva reening Mammogram Radiology ruiz Lockwood M.D. Average Risk [place] [address] [address] [facility] Patient [place], [place] [address] [facility] [address] [place], [place] [phone] (Work) [phone] Social History Tobacco Use Types Packs/Day Years [...] or relatives? How often do you attend tenriism or sikhism More than 4 time s per year 04/19/2022 services? Do you belong to any clubs or organizations Yes 04/19/2022 such as tenriism groups, unions, fraternal or athletic groups, or [...] place to sleep or slept in a fdc (including now)? Education Answer Date Recorded What is the highest level of school Associate degree: academ [employer] program 04/19/2022 you have completed or the [...] Procedure Name Priority Date/Time Associated Comments Diagnosis BI BREAST SCREENING RAD - Routine 04/21/2022 10:34 Screening Res ults for BILATERAL WITH (most inpatients AM CDT Mammogram Average this procedure TOMOSYNTHESIS and all Risk Patient are in the outpatients) results section. documented in this encounter Results BI Breast Screening Bilateral with Tomosynthesis (04/21/2022 10:34 AM CDT) Anatomical Region Laterality Modality Breast, Breast Imaging RST LOS, Breast Imaging ARZ LOS, Terri st Bilateral Mammography Imaging FLA LOS Specimen (Source) Anatomical Collection Method Collection Time Re ceived Time Location / / Volume Laterality 04/21/2022 11:12 AM CDT Impressions 04/21/2022 11:14 AM CDT Benign. RECOMMENDATION: ??Annual Screening Mammo gram ASSESSMENT: ??BI-RADS: 2: Benign. Narrative 04/21/2022 11:14 AM CDT EXAM: ??BI BREAST SCREENING BILATERAL WITH TOMOSYNTHESIS Current study was evaluated with a [employer] Aided Detection (CAD) system. INDICATION: ??Screening mammogram. COMPARISON: ??Prior exam(s) were availab le and reviewed for comparison. DENSITY: ??c. The breast(s) are heteroge neously dense, which may obscure small masses. FINDINGS: ??No findings of malignancy. ? ?Posttreatment changes right breast. No significant change since prior exam. Procedure Note Dianne Castro M.D. - 04/21/2022Forma tting of this note might be different from the original. EXAM: BI BREAST SCREENING BILATERAL WITH TOMOSYNTHESIS Current study was evaluated with a [employer] Aided Detection (CAD) system. INDICATION: Screening mammogram. COMPARISON: Prior exam(s) were available and reviewed for comparison. DENSITY: c. The breast(s) are heterogene ously dense, which may obscure small masses. FINDINGS: No findings of malignancy. Pos ttreatment changes right breast. No significant change since prior exam. IMPRESSION: Benign. RECOMMENDATION: Annual Screening Mammogr am ASSESSMENT: BI-RADS: 2: Benign. Mague Silva M.D. IMKatrin BI PROCEDURES documented in this encounter Visit Diagnoses Diagnosis Screening Mammogram Average Risk Patient documented in this encounter Care Teams Firer Retort Relationship Specialty Start Date End Date Darryl Stallings M.B.B.S., M.D. PCP - General Family Medicine 06/10/[address] [place] [phone] documented as of this encounter
--- OUTSIDE RECORDS SUMMARY | 2022-08-04 08:18 | XMS_ITS | Encounter Summary ---
:1955 Author Organization [facility] Address [address] [place] [address] Care Team Providers Name Role Phone Darryl Stallings M.D. Primary Care Provider [phone] Reason for Referral Outpatient (Routine) - Closed Specialty Diagnoses / Procedures Referred By Contact Refer red To Contact Diagnoses Screening Mammogram Average Risk Patient Mague Silva, [place] Reg ion Procedures BI Breast Screening Bilateral with Tomosynthesis Alek [address] [place] [address] Referral ID Status Reason Start Date Expiration Date Visits Requ ested Visits Authorized [id number] Closed 11/04/2020 11/04/2021 1 1 INAL JUDGE Reason for Visit Reason Comments Pre-visit Testing Orders 01/22 Encounter Details Date Type Department Care Team Description 10/31/2020 Clinical Breast Diagnostic Shira Pre-visit Testing Communication [facility] in [place] Orders (01/22) Jordan, [address] [place], [place] [address] [facility] [address] [place], [place] [phone] (Work) [phone] Social History Tobacco Use Types Packs/Day Years [...] or relatives? How often do you attend alevism or druze More than 4 time s per year 04/19/2022 services? Do you belong to any clubs or organizations Yes 04/19/2022 such as alevism groups, unions, fraternal or athletic groups, or [...] place to sleep or slept in a jail (including now)? Education Answer Date Recorded What is the highest level of school Associate degree: [employer] program 06/27/2020 you have completed or the highest degree you have received? Sex Assigned at Date Recorded Female 06/28/2018 6:37 PM CDT documented as of this encounter Plan of Treatment Not on filedocumented as of this encounter Results BI Breast Screening Bilateral with Tomosynthesis (03/19/2021 10:31 AM CDT) Anatomical Region Laterality Modality Breast, Breast Imaging RST LOS, Breast Imaging ARZ LOS, Terri st Bilateral Mammography Imaging FLA LOS Specimen (Source) Anatomical Collection Method Collection Time Re ceived Time Location / / Volume Laterality 03/19/2021 2:59 PM CDT Impressions 03/19/2021 3:02 PM CDT Negative. RECOMMENDATION: ??Annual Screening Mammo gram ASSESSMENT: ??BI-RADS: 1: Negative. Narrative 03/19/2021 3:02 PM CDT EXAM: ??BI BREAST SCREENING BILATERAL WITH TOMOSYNTHESIS Current study was evaluated with a Compu ter Aided Detection (CAD) system. INDICATION: ??Screening mammogram. COMPARISON: ??Prior exam(s) were availab le and reviewed for comparison. DENSITY: ??c. The breast(s) are heteroge neously dense, which may obscure small masses. FINDINGS: ??No mammographic findings of malignancy. Stable postoperative and post radiation changes in the right breast. Procedure Note Chantal Garcia M.D. - 03/19/2021For matting of this note might be different from the original. EXAM: BI BREAST SCREENING BILATERAL WITH TOMOSYNTHESIS Current study was evaluated with a Compu ter Aided Detection (CAD) system. INDICATION: Screening mammogram. COMPARISON: Prior exam(s) were available and reviewed for comparison. DENSITY: c. The breast(s) are heterogene ously dense, which may obscure small masses. FINDINGS: No mammographic findings of ma lignancy. Stable postoperative and post radiation changes in the right breast. IMPRESSION: Negative. RECOMMENDATION: Annual Screening Mammogr am ASSESSMENT: BI-RADS: 1: Negative. Mague GODFREY BI PROCEDURES documented in this encounter Visit Diagnoses Diagnosis Screening Mammogram Average Risk Patient - Primary Screening Mammogram Average Risk Patient documented in this encounter Care Teams Pepper Picker Relationship Specialty Start Date End Date Darryl Stallings M.B.B.S., M.D. PCP - General Family Medicine 06/10/[address] [place] [phone] documented as of this encounter
--- OUTSIDE RECORDS SUMMARY | 2022-08-04 08:18 | XMS_ITS | Encounter Summary ---
:1955 Author Organization [facility] Address [address] [place] [address] Care Team Providers Name Role Phone Darryl Stallings M.D. Primary Care Provider +[phone] Reason for Visit Reason Comments Follow-up Appointment Request (Routine) - Closed Specialty Diagnoses / Procedures Referred By Contact Refer red To Contact Breast Clinic Referral ID Status Reason Start Date Expiration Date Visits Requ ested Visits Authorized [id number] Closed 05/07/2020 05/07/2021 1 1 Encounter Details Date Type Department Care Team Description 07/16/2020 Office Visit Breast Diagnostic Mague Silva er Breast Personal History (Primary Dx); Clinic in Fabián Kothari M.D. Density Breast; [place] [address] [place] [address] Abnormal Magnetic Resonance Imaging [address] [place] [phone] Social History Tobacco Use Types Packs/Day Years [...] or relatives? How often do you attend latter-day or jehovah's witness More than 4 time s per year 04/19/2022 services? Do you belong to any clubs or organizations Yes 04/19/2022 such as latter-day groups, unions, fraternal or athletic groups, or [...] place to sleep or slept in a care home (including now)? Education Answer Date Recorded What is the highest level of school Associate degree: academ [employer] program 06/27/2020 you have completed or the highest degree you have received? Sex Assigned at Date Recorded Female 06/28/2018 6:37 PM CDT documented as of this encounter Last Filed Vital Signs Vital Sign Reading Time Taken Comments Blood Pressure 113/73 07/16/2020 9:36 AM CDT Pulse 60 07/16/2020 9:36 AM CDT Temperature - - Respiratory Rate - - Oxygen Saturation - - Inhaled Oxygen Concentration - - Weight - - Height - - Body Mass Index - - documented in this encounter Progress Notes Mague Silva M.D. - 07/16/2020 10:00 AM CDT SUBJECTIVE CHIEF COMPLAINT / REASON FOR VISIT Recheck visit HISTORY OF PRESENT ILLNESS Patient is a very pleasant 64 y.o. year old woman who returns now for follow up on her breast concerns. 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 She then completed endocrine therapy for over 5 years. I saw her in November 2019 with mammogram and MBI. Her MBI showed vague enhancement in the left lateral breast that was thought probably benign, and 6 month follow-up was recommended. She returns today for that follow-up. She denies any new breast concerns including masses, skin changes, nipple changes, or nipple discharge. Her MBI today showed no abnormal radiotracer uptake in the left breast with the prior questionable asymmetry no longer apparent The following portions of the patient's history were reviewed and updated as appropriate: allergies,current medications, family history, medical history, social history, surgical history and problem list. OBJECTIVE PHYSICAL EXAM BP 113/73 (BP Location: Left arm, Patient Position: Sitting, Cuff Size: Regular) Pulse 60 LMP 10/18/2011 (Within Months) Constitutional: Well-developed and well-nourished. No distress. Neck: Neck supple. No thyromegaly present. Breast: Symmetric bilaterally. Nipples are everted bilaterally. No overlying skin changes. On palpation of the bilateral breasts, there are no masses, nodules, or areas of thickening appreciated. Lymphadenopathy: No cervical, supraclavicular, infraclavicular or axillary lymphadenopathy palpable. Skin: Skin is warm and dry. No rash noted. Psychiatric: She has a normal mood and affect. ASSESSMENT / PLAN #1 Personal history of breast cancer #2 Dense breast tissue #3 Abnormal MBI 11/2019- resolution of possible asymmetry in 06/2020 She was happy to hear the results of her MBI. Breast exam was reassuring as well. Will plan for her to come back next December for her annual screening mammogram. BREAST CLINIC FOLLOW-UP RECOMMENDATIONS: Bilateral screening mammogram next due in December 2020. Supplemental MBI next due in December 2021. Clinical breast exam next due in December 2020. Breast self-awareness encouraged and the patient is advised to seek medical attention for any breastrelated concerns. PATIENT EDUCATION Ready to learn, no apparent learning barriers were identified; learning preferences include listening. Explained diagnosis and treatment plan; patient expressed understanding of the content. Total visit time greater than 15 minutes, with over 50% spent counseling with the patient and coordination of care activities described above. documented in this encounter Plan of Treatment Not on filedocumented as of this encounter Visit Diagnoses Diagnosis Cancer Breast Personal History - Primary Density Breast Abnormal Magnetic Resonance Imaging [address] documented in this encounter Care Teams Platform Builder Relationship Specialty Start Date End Date Darryl Stallings M.B.B.S., M.D. PCP - General Family Medicine 06/10/[address] [place] [address] Jasmin FlemingSABINO ingram [phone] documented as of this encounter
--- OUTSIDE RECORDS SUMMARY | 2022-08-04 08:18 | XMS_ITS | Encounter Summary ---
:1955 Author Organization [facility] Address [address] [place] [address] Care Team Providers Name Role Phone Darryl Stallings M.D. Primary Care Provider +[phone] Encounter Details Date Type Department Care Team Description 03/24/2022 Orders Only [facility] PCP [facility] MNT Cat Goyal, Sc hugh Louis M.D. Diabetes Mellitus [address] [place] [address] Social History Tobacco Use Types Packs/Day Years [...] or relatives? How often do you attend yarsanism or faith More than 4 time s per year 04/19/2022 services? Do you belong to any clubs or organizations Yes 04/19/2022 such as yarsanism groups, unions, fraternal or athletic groups, or [...] of this encounter Plan of Treatment Scheduled Orders Name Type Priority Associated Diagnoses Order S chedule Glucose, Fasting Lab Routine Screening Examination Ex pected: 04/07/2022, Diabetes Mellitus Expires: 1 11/21/2021 documented as of this encounter Visit Diagnoses Diagnosis Screening Examination Diabetes Mellitus documented in this encounter Care Teams Dielectric Tester Relationship Specialty Start Date End Date Darryl Stallings M.B.B.S., M.D. PCP - General Family Medicine 06/10/[address] [place] [address] [place] [phone] documented as of this encounter
--- OUTSIDE RECORDS SUMMARY | 2022-08-04 08:18 | XMS_ITS | Encounter Summary ---
:1955 Author Organization [facility] Address [address] [place] [address] Care Team Providers Name Role Phone Darryl Stallings M.D. Primary Care Provider [phone] Encounter Details Date Type Department Care Team Description 07/31/2020 Documentation Department of Oncology in Dominique Dawn, [place], [place] [address] [facility] [address] [place] [phone] Social History Tobacco Use Types Packs/Day Years [...] or relatives? How often do you attend temple or mandaen More than 4 time s per year 04/19/2022 services? Do you belong to any clubs or organizations Yes 04/19/2022 such as temple groups, unions, fraternal or athletic groups, or [...] place to sleep or slept in a usp (including now)? Education Answer Date Recorded What is the highest level of school Associate degree: [employer] program 06/27/2020 you have completed or the highest degree you have received? Sex Assigned at Date Recorded Female 06/28/2018 6:37 PM CDT documented as of this encounter Plan of Treatment Not on filedocumented as of this encounter Visit Diagnoses Not on filedocumented in this encounter Care Teams Returned Goods Sorter Relationship Specialty Start Date End Date Darryl Stallings M.B.B.S., M.D. PCP - General Family Medicine 06/10/[address] [place] [address] [place] [address] documented as of this encounter
--- OUTSIDE RECORDS SUMMARY | 2022-08-04 08:18 | XMS_ITS | Clinical Summary ---
:1955 Author Organization [facility] [place] [address] Care Team Providers Name Role Phone Pcp, No Primary Care Provider Unavailable Allergies Not on File Medications Not on file Active Problems Not on file Social History Tobacco Use Types Packs/Day Years Used Date Never Assessed Sex Assigned at Date Recorded Not on file Plan of Treatment Health Maintenance Due Date Last Done Comments COVID-19 vaccine series (#1) 05/09/1956 Tdap 1965 Depression screening for age 12+ 1966 BMI (ht and wt on same day) for age 18+ 1972 Hepatitis C screening for age 18-79 1972 Tetanus booster 1974 Colonoscopy through age 75 1999 Lipids for age 45-75 1999 Mammogram for age 45-75 1999 Zoster (shingles) series for age 50+ (1 of 2) 2004 DEXA/DXA scan for age 65+ 2019 Pneumococcal series for age 65+ (1 - PCV) 2019 Influenza for age 65+ 06/18/2022 Results Not on filefrom Last 3 Months Insurance Payer Benefit Plan / Subscriber ID Effective Dates Phone Addre ss Type Group BLUE CROSS MR BLUE CROSS [id number] 2019-Present [address] [address] [place], [place] MR PB ONLY [phone] Care Teams Hand Molder Relationship Specialty Start Date End Date Pcp, No PCP - General 01/09/21 .
--- OUTSIDE RECORDS SUMMARY | 2022-08-04 08:18 | XMS_ITS | Encounter Summary ---
:1955 Author Organization [facility] Address [address] [place] [address] Care Team Providers Name Role Phone Darryl Stallings M.D. Primary Care Provider [phone] Reason for Referral Outpatient (Routine) - Authorized Specialty Diagnoses / Procedures Referred By Contact Refer red To Contact Endocrinology Diagnoses Adenoma Pituitary Nonfunctioning (HCC) Osteoporosis [facility] [address] [place] [address] Referral ID Status Reason Start Date Expiration Date Visits V isits Requested Authorized [id number] Authorized 06/26/2022 06/25/2025 1 1 MRI/CAT/PET Scan (Routine) - Authorized Specialty Diagnoses / Procedures Referred By Contact Refer red To Contact Radiology Diagnoses Adenoma Pituitary Nonfunctioning (HCC) [facility] Procedures MR Pituitary without and with IV Contrast P.A.-C. [address] [place] [address] Referral ID Status Reason Start Date Expiration Date Visits V isits Requested Authorized [id number] Authorized 06/26/2022 06/26/2023 1 1 Reason for Visit Outpatient (Routine) - Closed Specialty Diagnoses / Procedures Referred By Contact Refer red To Contact Endocrinology Diagnoses Adenoma Pituitary Nonfunctioning (HCC) Osteopenia Vianca [facility] P.A.-C. [address] [place] [address] Referral ID Status Reason Start Date Expiration Date Visits Requ ested Visits Authorized [id number] Closed 07/02/2020 07/02/2021 1 1 Encounter Details Date Type Department Care Team Description 06/26/2022 Office Visit Division of Corinne Coley Adenoma Pit uitary Nonfunctioning (HCC) (Primary Dx); Endocrinology in S, P.A.-C. Osteoporosis [place], [place] [address] [facility] [address] [place] [phone] Social History Tobacco Use Types Packs/Day Years [...] or relatives? How often do you attend baptism or tenriism More than 4 time s per year 04/19/2022 services? Do you belong to any clubs or organizations Yes 04/19/2022 such as baptism groups, unions, fraternal or athletic groups, or [...] place to sleep or slept in a long-term (including now)? Education Answer Date Recorded What is the highest level of school Associate degree: [employer] program 04/19/2022 you have completed or the highest degree you have received? Sex Assigned at Date Recorded Female 06/28/2018 6:37 PM CDT documented as of this encounter Last Filed Vital Signs Vital Sign Reading Time Taken Comments Blood Pressure 119/76 06/26/2022 1:40 PM CDT Pulse 58 06/26/2022 1:40 PM CDT Temperature - - Respiratory Rate - - Oxygen Saturation - - Inhaled Oxygen Concentration - - Weight 61.7 kg (136 lb 0.4 oz) 06/26/2022 1:40 PM CDT Height 173.8 cm (5' 8.43) 06/26/2022 1:40 PM CDT Body Mass Index 20.43 06/26/2022 1:40 PM CDT documented in this encounter Progress Notes Kasey Carson, RCamiloN. - 06/26/2022 2:00 PM CDT SUBJECTIVE ENDOCRINOLOGY ESTABLISHED PATIENT VISIT Service Date: 06/26/2022 CHIEF COMPLAINT/REASON FOR VISIT Mrs. 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 HISTORY OF PRESENT ILLNESS Mrs. Rhonda Berumen is a pleasant 66 y.o. 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 Ms. Berumen had a transsphenoidal resection performed in [place] on December 11, 2003. Pathology showeda non-functioning pituitary adenoma. -Last MRI: 07/02/2020 -Pituitary related medications: -None -Interval History: Her last visit was 07/02/2020. Since that time she had a fall in December of 2020 and fractured C7-T3. She also mentioned 2 episodes where she felt her heart racing, no SOB, one occasion of light headedness. These events self resolved. She has otherwise been doing well with no other acute events, no reports of acute vision changes, nausea, fatigue, weight loss, headaches. Review of Systems Pertinent items are noted in HPI. The following systems were negative: Constitutional, Skin, Eyes, ENT, Respiratory, Gastrointestinal,Genitourinary, Hematologic, Musculoskeletal, Neurological, Psychiatric The following portions of the patient's history were reviewed and updated as appropriate: allergies,current medications, problem list and medical history. OBJECTIVE Vital Signs BP 119/76 (BP Location: Left arm, Patient Position: Sitting, Cuff Size: Regular) Pulse (!) 58 Ht173.8 cm Wt 61.7 kg LMP 10/18/2011 (Within Months) BMI 20.43 kg/m?? Physical Exam Constitutional Appearance: Normal appearance. Neurological Mental Status: She is alert. Psychiatric Mood and Affect: Mood normal. Behavior: Behavior normal. Thought Content: Thought content normal. Judgment: Judgment normal. Labs Results for orders placed or performed in visit on 06/26/22 Creatinine with Estimated GFR Result Value Ref Range Creatinine 0.89 0.59 - 1.04 mg/dL Estimated GFR (eGFR) 71 >=60 mL/min/BSA Pending labs include: None T-score is at or below -2.5 as defined by the WHO. Low bone density is present at T-scores between -1 and -2.5 Imaging BMD Bone Density Spine Hips Result Date: 06/26/2022 FINDINGS: Left Hip: Femur Neck: BMD = 0.742 g/cm2 T-score = - 2.1 Z-score = -0.5 Total Hip: BMD = [...] A low TBS has been associated with increased risk of fractures in certain populations. TBS should not be used alone to determine treatment recommendations. It can be used in conjunction with BMD and FRAX to inform management. Please note: A more comprehensive DXA report, including images and graphs, is available in [employer]. In the absence of other causes of low BMD or demonstrated skeletal fragility, osteoporosis may be diagnosed in post- menopausal women and men at or above age 50 when the T-score isat or below -2.5 as defined by the WHO. Low bone density is present at T-scores between -1 and -2.5.The diagnosis in pre-menopausal women and men < age 50 can be based on low bone density or evidence of skeletal fragility in the appropriate clinical setting. Impression: Osteoporosis AP Spine (region: L1-L4) MR Pituitary without and with IV Contrast Result Date: 06/26/2022 Narrative: EXAM: MR PITUITARY WITHOUT AND WITH IV CONTRAST COMPARISON: Brain MRI 07/02/2020 FINDINGS: Transsphenoidal resection of a pituitary macroadenoma November 2003. No substantial change since 07/02/2020. Unchanged presumed residual pituitary adenoma within the right lateral aspect of the sella e xtending to the right cavernous sinus. Leftward infundibular deviation. Mild generalized parenchymalloss. Mild leukoaraiosis. Impression: Stable residual pituitary adenoma along the right sella extending into the cavernous sinus. ASSESSMENT / PLAN We reviewed her labs and imaging, overall she is doing well. We recommended she follow-up with her PCP to address occasional fast heart rate, and for continuing the dosing/management of Alendronate forher osteoporosis. Follow-up plan: #1 Adenoma Pituitary Nonfunctioning (HCC) Her labs are excellent and there are no concerns for pituitary dysfunction. Her MRI is unchanged from 2019. We will follow-up with another MRI in 3 years unless there are changes. #2 Osteoporosis Her BMD exam resulted with further decreased bone density, and she is now in the osteoporosis category with her spine T level at -2.5. No FRAX scores. With this change we will add 70 mg of Alendronate weekly in addition to her diet, calcium supplements, and weight bearing exercise. Education was provided to take the medication 30 minutes before food with water, and to remain upright 30 minutes after. Ms. Berumen was in agreement with the above plan and did not have any additional questions at the end of the visit. Associated attestation - Corinne Coley P.A.-C. - 06/26/2022 4:47 PM CDT I evaluated this patient with Kasey Carson, HEAVY FORGING MACHINE OPERATOR student. I re-performed the history of present illness, physical exam and participated in the medical decision making. I reviewed her note and agree with the findings, assessment and plan. Please refer to her note for further details. Ms. Berumen is well known to us, and we have followed her for many years. Her pituitary adenoma is stable. She does have osteoporosis, and with her spinal fractures we recommend starting bisphosphonate therapy. This can be refilled by her PCP, although we are happy to provide the first prescription. Plan for next f/u in 3 years, sooner as needed. Rx & Follow-up Plan: Prescriptions Medications: New medication given Refills requests: PCP Controlled substance prescriptions: No Return Visit Return Date: 3 years Telehealth: No Return to: Self Orders mail in: No Additional recommendations: n/a Orders placed for next visit: Orders Placed This Encounter Procedures MR Pituitary without and with IV Contrast Creatinine with Estimated GFR S-TSH (Thyroid-Stimulating Hormone - Sensitive) T4 (Thyroxine), Free Cortisol Endocrinology office visit (clinic) documented in this encounter Plan of Treatment Scheduled Orders Name Type Priority Associated Diagnoses Order S chedule MR Pituitary Imaging RAD - Routine (most Adenoma Pituitary Exp ected: without and with inpatients and all Nonfunctioning (HC C) 06/26/2023 IV Contrast outpatients) (Approximate), Expires: 09/25/2023 S-TSH Lab Routine Adenoma Pituitary Expected: (Thyroid-Stimulati Nonfunctioning (HCC) 0 06/26/2023 ng Hormone - (Approximate), Sensitive) Expires: 09/25/2023 T4 (Thyroxine), Lab Routine Adenoma Pituitary Expecte d: Free Nonfunctioning (HCC) 023 (Approximate), Expires: 09/25/2023 Cortisol Lab Routine Adenoma Pituitary Expected: Nonfunctioning (HCC) 023 (Approximate), Expires: 09/25/2023 Scheduled Referrals Name Type Priority Associated Diagnoses Order S [facility] Endocrinology office Outpatient Routine Adenoma Pituitary Ex pected: visit (clinic) Referral Nonfunctioning ( HCC) 06/26/2023 Osteoporosis (Approximate), Expires: 09/25/2023 documented as of this encounter Procedures Procedure Name Priority Date/Time Associated Diagnosis Comme nts CREATININE WITH Routine 06/26/2022 7:41 AM Osteoporosis Result s for this EGFR, S/P CDT procedure are i n the results section. documented in this encounter Results Creatinine with Estimated GFR (06/26/2022 7:41 AM CDT) P athologist Signature Creatinine 0.89 0.59 - 06/26/2022 DTL 1.04 mg/dL 3:00 PM CDT Estimated GFR 71 >=60 06/26/2022 DTL (eGFR) mL/min/BSA 3:00 PM CDT Comment: Estimated GFR calculated using the 2020 CKD_EPI creatinine equation. Specimen Anatomical Collection Method Collection Time Receive d Time (Source) Location / / Volume Laterality Blood (Blood, 06/26/2022 7:41 AM 06/26/20 2:38 Venous) CDT PM CDT Corinne Coley P.A.-C. LAB BLOOD ADD-ON Performing Organization Address City/State/ZIP Code Phon e Number [facility] - [address] [place], [place] [address] [facility] [place] [address] Laboratories-[facility] [address] documented in this encounter Visit Diagnoses Diagnosis Adenoma Pituitary Nonfunctioning (HCC) - Primary Osteoporosis documented in this encounter Care Teams Cleaner And Trimmer Relationship Specialty Start Date End Date Darryl Stallings M.B.B.S., M.D. PCP - General Family Medicine 06/10/[address] [place] [phone] documented as of this encounter
--- OUTSIDE RECORDS SUMMARY | 2022-08-04 08:18 | XMS_ITS | Encounter Summary ---
:1955 Author Organization [facility] Address [address] [place] [address] Care Team Providers Name Role Phone Darryl Stallings M.D. Primary Care Provider +1 [phone] Reason for Visit Reason Comments COVID Inquiry Encounter Details Date Type Department Care Team Description 07/15/2020 Clinical Communication Breast Diagnostic Shy Silva COVID Inquiry Clinic ruiz Lockwood M.D. [place], [address] [place] [address] [place] [address] [place], [place] [phone] (Work) [phone] Social History Tobacco Use Types Packs/Day Years [...] or relatives? How often do you attend restorationism or mormonism More than 4 time s per year 04/19/2022 services? Do you belong to any clubs or organizations Yes 04/19/2022 such as restorationism groups, unions, fraternal or athletic groups, or [...] place to sleep or slept in a fpc (including now)? Education Answer Date Recorded What is the highest level of school Associate degree: [employer] program 06/27/2020 you have completed or the highest degree you have received? Sex Assigned at Date Recorded Female 06/28/2018 6:37 PM CDT documented as of this encounter Miscellaneous Notes Telephone Encounter - Laurel Garibay - 07/15/2020 1:44 PM CDT 1. Is the patient requesting a COVID test only or other appointments? Other Appointments 2. Have you tested positive for COVID-19 in the last 30 days or do you have a pending COVID-19 test because you had symptoms? no 3. In the last 14 days have you had close contact with a lab confirmed positive case of COVID-19 (close contact is defined as a household case of COVID or being within 6 feet of a COVID-19 patient for more than 5 minutes or having direct contact with infectious secretions, e.g., being coughed on)? no 4. In the past 14 days, are any of the following symptoms new to you and not related to an existing health condition? a. Fever greater than or equal to 37.8 C (100.0 F)? no b. New symptoms (Specifically: headache, cough, shortness of breath, respiratory distress, sore throat, diarrhea, nausea, vomiting, chills and repeated shaking with chills, myalgia's (muscle aches), loss of smell, or change or loss of taste sensation)? no 5. Are you having NEW trouble breathing, worsening breathing, or feeling as though you're going to collapse when you stand or sit up? no 6. Have you tested positive for COVID in the last 90 days? no Route reply to: Scheduling Contact Number: [phone] documented in this encounter Plan of Treatment Not on filedocumented as of this encounter Visit Diagnoses Not on filedocumented in this encounter Care Teams Remodeler Relationship Specialty Start Date End Date Darryl Stallings M.B.B.S., M.D. PCP - General Family Medicine 06/10/[address] [place] [address] [place] [address] documented as of this encounter
--- OUTSIDE RECORDS SUMMARY | 2022-08-04 08:18 | XMS_ITS | Encounter Summary ---
:1955 Author Organization [facility] Address [address] [place] [address] Care Team Providers Name Role Phone Darryl Stallings M.D. Primary Care Provider [phone] Encounter Details Date Type Department Care Team Description 06/26/2022 Hospital Encounter Department of [place], [facility] Pituitary Laboratory Medicine Macrina Lima (HCC) and Pathology, [facility] in [address] [place] [phone] [place] [address] [place], [place] (Work) [phone] Social History Tobacco Use Types Packs/Day Years [...] or relatives? How often do you attend religious or taoism More than 4 time s per year 04/19/2022 services? Do you belong to any clubs or organizations Yes 04/19/2022 such as religious groups, unions, fraternal or athletic groups, or [...] place to sleep or slept in a retirement (including now)? Education Answer Date Recorded What is the highest level of school Associate degree: [employer] program 04/19/2022 you have completed or the [...] Name Priority Date/Time Associated Diagnosis Comme nts PROLACTIN, S Routine 06/26/2022 7:44 AM [facility]uitary Resu lts for this CDT Nonfunctioning (HCC) procedu re are in the results section. THYROID-STIMULATIN Routine 06/26/2022 7:44 AM [facility] Pituitar y Results for this G CDT Nonfunctioning (HCC) procedu re are in HORMONE-SENSITIVE the result s (S-TSH) section. T4 (THYROXINE), Routine 06/26/2022 7:44 AM [facility] R esults for this FREE, S CDT Nonfunctioning (HCC) procedu re are in the results section. SODIUM, S/P Routine 06/26/2022 7:44 AM [facility] Resu lts for this CDT Nonfunctioning (HCC) procedu re are in the results section. CORTISOL, S Routine 06/26/2022 7:44 AM [facility] Resu lts for this CDT Nonfunctioning (HCC) procedu re are in the results section. documented in this encounter Results Prolactin (06/26/2022 7:44 AM CDT) athologist Signature Prolactin Total 10.1 4.8 - 23.3 06/26/2022 DTL ng/mL 8:53 AM CDT Comment: ----ADDITIONAL INFORMATION---- The testing method is an electrochemilum inescence assay manufactured by [employer] and performed on the Josue system. Values obtained with different assay met hods or kits may be different and cannot be used inte rchangeably. Test results cannot be interpreted as ab solute evidence for the presence or absence of malignant disease. Specimen Anatomical Collection Method Collection Time Receive d Time (Source) Location / / Volume Laterality Blood (Blood, 06/26/2022 7:44 AM 06/26/20 22 8:19 Venous) CDT AM CDT Corinne Coley P.A.-C. LAB BLOOD ADD-ON Performing Organization Address City/[facility] Code Phon e Number [facility] - 200 [place], [place] [address] [place] [address] [place] [address] [facility] 200 [facility] Cortisol (06/26/2022 7:44 AM CDT) athologist Signature Cortisol AM 11 7 - 25 06/26/2022 DTL Result mcg/dL 9:51 AM CDT Specimen Anatomical Collection Method Collection Time Receive d Time (Source) Location / / Volume Laterality Blood (Blood, 06/26/2022 7:44 AM 06/26/20 22 8:19 Venous) CDT AM CDT Corinne Coley P.A.-C. LAB BLOOD ADD-ON Performing Organization Address City/[facility] Phon e Number [facility] - 200 [place], [place] [address] [place] [address] Laboratories-[address] S-TSH (Thyroid-Stimulating Hormone - Sensitive) (06/26/2022 7:44 AM CDT) athologist Signature TSH, Sensitive 1.5 0.3 - 4.2 06/26/2022 DTL mIU/L 8:53 AM CDT Specimen Anatomical Collection Method Collection Time Receive d Time (Source) Location / / Volume Laterality Blood (Blood, 06/26/2022 7:44 AM 06/26/20 8:19 Venous) CDT AM CDT Corinne Coley P.A.-C. LAB BLOOD ADD-ON Performing Organization Address City/[facility] Phon e Number [facility] - 200 [place], [place] [address] [place] [id number] [place] [address] T4 (Thyroxine), Free (06/26/2022 7:44 AM CDT) athologist Signature T4 (Thyroxine), 1.2 0.9 - 1.7 06/26/2022 DTL Free, S ng/dL 8:53 AM CDT Specimen Anatomical Collection Method Collection Time Receive d Time (Source) Location / / Volume Laterality Blood (Blood, 06/26/2022 7:44 AM 06/26/20 8:19 Venous) CDT AM CDT Corinne Coley P.A.-C. LAB BLOOD ADD-ON Performing Organization Address City/State/[facility] Phon e Number [facility] - 200 [place], [place] [address] [place], [place] [id number] [place] [address] Sodium (06/26/2022 7:44 AM CDT) athologist Signature Sodium, S 142 135 - 145 06/26/2022 8:53 DTL mmol/L AM CDT Specimen Anatomical Collection Method Collection Time Receive d Time (Source) Location / / Volume Laterality Blood (Blood, 06/26/2022 7:44 AM 06/26/20 22 8:19 Venous) CDT AM CDT Corinne Coley P.A.-C. LAB BLOOD ADD-ON Performing Organization Address City/State/ZIP Code Phon e Number [facility] - [address] [place], [place] [address] [facility] [place] [address] [facility] [address] documented in this encounter Visit Diagnoses Diagnosis [facility] Pituitary Nonfunctioning (HCC) documented in this encounter Care Teams Production Truck Driver Relationship Specialty Start Date End Date Darryl Stallings M.B.B.S., M.D. PCP - General Family Medicine 06/10/[address] [place] [phone] documented as of this encounter
--- OUTSIDE RECORDS SUMMARY | 2022-08-04 08:18 | XMS_ITS | Encounter Summary ---
:1955 Author Organization [facility] Address [address] [place] [address] Care Team Providers Name Role Phone Darryl Stallings M.D. Primary Care Provider [phone] Reason for Referral MRI/CAT/PET Scan (Routine) - Closed Specialty Diagnoses / Procedures Referred By Contact Refer red To Contact Radiology Diagnoses [facility] Pituitary Nonfunctioning (HCC) Corinne Coley [place] [facility] Procedures MR Pituitary without and with IV Contrast P.A.-C. [address] [place] [address] Referral ID Status Reason Start Date Expiration Date Visits Requ ested Visits Authorized [id number] Closed 07/02/2020 07/02/2021 1 1 Reason for Visit MRI/CAT/PET Scan (Routine) - Closed Specialty Diagnoses / Procedures Referred By Contact Refer red To Contact Radiology Diagnoses [facility] Pituitary Nonfunctioning (HCC) Corinne Coley [place] [facility] Procedures MR Pituitary without and with IV Contrast P.A.-C. [address] [place] [address] Referral ID Status Reason Start Date Expiration Date Visits Requ ested Visits Authorized [id number] Closed 07/02/2020 07/02/2021 1 1 Encounter Details Date Type Department Care Team Description 06/26/2022 Hospital Encounter Department of [place], [facility] Pituitary Radiology, Macrina Kong ([facility]) Bobby, in P.A.-C. [place], [address] [place], [place] 200 [facility] [address] [place], [place] [phone] (Work) [phone] Social History Tobacco Use Types Packs/Day Years [...] How often do you attend adventist or gnosticist More than 4 time s per year [...] highest level of school Associate degree: [employer] program 04/19/2022 you have completed or the highest degree you have received? Sex Assigned at Date Recorded Female 06/28/2018 6:37 PM CDT documented as of this encounter Medications at Time of Discharge Medication Sig Dispensed Refills Start Date End Date alendronate (FOSAMAX) 70 Take 1 tablet (70 mg 12 tablet 3 0 06/26/2022 mg tablet total) by mouth every 7 (seven) days. 1 tablet weekly on an empty stomach, remain upright for at least 30 minutes calcium citrate/vitamin Take 1 tablet by mouth [...] Name Priority Date/Time Associated Diagnosis Comme nts MR PITUITARY RAD - Routine 06/26/2022 9:54 [facility] Result s for WITHOUT AND WITH (most inpatients AM CDT Nonfunctioning (HCC) this procedure IV CONTRAST and all are in the outpatients) results section. documented in this encounter Results MR Pituitary without and with IV Contrast (06/26/2022 9:54 AM CDT) Anatomical Region Laterality Modality Head, Neuroradiology [facility], Neuroradiology [facility], N/A Magnetic Resonance Neuroradiology [facility] Specimen (Source) Anatomical Collection Method Collection Time Re ceived Time Location / / Volume Laterality 06/26/2022 9:38 AM CDT Impressions 06/26/2022 10:59 AM CDT Stable residual pituitary adenoma along the right sella extending into the cavernous sinus. 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 No substantial change since 07/02/2020. Unchanged presumed res idual pituitary adenoma within the right lateral aspect of the sella extending to the right caverno us sinus. Leftward infundibular deviation. Mild generalized parenchymal loss. Mild leukoaraiosis. Procedure Note Timmy Castillo M.D. - 06/26/2022Forma tting of this note might be different from the original. 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 No substantial change since 07/02/2020. Unchanged presumed res idual pituitary adenoma within the right lateral aspect of the sella extending to the right caverno us sinus. Leftward infundibular deviation. Mild generalized parenchymal loss. Mild leukoaraiosis. IMPRESSION: Stable residual pituitary adenoma along the right sella extending into the cavernous sinus. Corinne Coley P.A.-C. IMG MRI PROCEDURES documented in this encounter Visit Diagnoses Diagnosis [facility] Pituitary Nonfunctioning (HCC) documented in this encounter Administered Medications Inactive Administered Medications - up to 3 most recent administrations Medication Order MAR Action Action Date Dose Rate Site gadobutrol injection 0.01-30 mL Given 06/26/2022 9:40 AM CDT 7 m L (GADAVIST) 0.01-30 mL, intravenous, Once in imaging, contrast, Starting on Wed06/26/22 at 0901, For 1 dose, Imaging Protocol Orders, Dose per Radiant Medication Guidelines Intrathecal doses greater than 0.25 mL not recommended. documented in this encounter Care Teams Skin Care Therapist Relationship Specialty Start Date End Date Darryl Stallings M.B.B.S., M.D. PCP - General Family Medicine 06/10/[address] [place] [phone] documented as of this encounter
--- OUTSIDE RECORDS SUMMARY | 2022-08-04 08:18 | XMS_ITS | Encounter Summary ---
:1955 Author Organization [facility] Address [address] [place] [address] Care Team Providers Name Role Phone Darryl Stallings M.D. Primary Care Provider [phone] Encounter Details Date Type Department Care Team Description 07/16/2020 Hospital Encounter Department of [facility] Laboratory Medicine [facility] Exam and Pathology, [place], [place] [address] [place] [address] Social History Tobacco Use Types Packs/Day Years [...] or relatives? How often do you attend sabianist or mosque More than 4 time s per year 04/19/2022 services? Do you belong to any clubs or organizations Yes 04/19/2022 such as sabianist groups, unions, fraternal or athletic groups, or [...] place to sleep or slept in a group home (including now)? Education Answer Date Recorded What is the highest level of school Associate degree: [employer] program 06/27/2020 you have completed or the highest degree you have received? Sex Assigned at Date Recorded Female 06/28/2018 6:37 PM CDT documented as of this encounter Medications at Time of Discharge Medication Sig Dispensed Refills Start Date End Date calcium citrate/vitamin Take 1 tablet by 0 2008 D3 (CITRACAL REGULAR mouth daily. ORAL) magnesium 30 mg tablet Take 30 mg by mouth 0 01/17 daily. multivitamin tablet Take 1 tablet by 0 09/06/2009 mouth daily. potassium gluconate 2.5 Take 1 tablet by 0 2014 mEq tablet mouth daily. biotin 1 mg capsule Take 1 capsule by 0 2 04/21/2022 mouth daily. documented as of this encounter Plan of Treatment Not on filedocumented as of this encounter Procedures Procedure Name Priority Date/Time Associated Diagnosis Comme nts [facility] RESEARCH Routine 07/16/2020 10:26 AM Clinical Research Re sults for this ORDER, B CDT Exam procedure are i n the results section. documented in this encounter Results Miscellaneous Research, B (07/16/2020 10:26 AM CDT) athologist Signature Number of 4 07/16/2020 [facility] Specimens 10:26 AM CDT Specimen Anatomical Collection Method Collection Time Receive d Time (Source) Location / / Volume Laterality Varies (Blood, 07/16/2020 10:26 0 Venous) AM CDT 10:26 AM CDT Harlan Albrecht M.D. LAB RESEARCH NO RESULT GRISELDA RUFFIN Performing Organization Address City/State/ZIP Code Phon e Number [facility] - [address] [place], [place] [address] [place], [place] [phone] [place] [address] documented in this encounter Visit Diagnoses Diagnosis Clinical Research Exam documented in this encounter Care Teams Owner Oral Surgeon Relationship Specialty Start Date End Date Darryl Stallings M.B.B.S., M.D. PCP - General Family Medicine 06/10/[address] [place] [phone] documented as of this encounter
--- OUTSIDE RECORDS SUMMARY | 2022-08-04 08:18 | XMS_ITS | Clinical Summary ---
:1955 Author Organization [facility] Address [address] [place] [address] Care Team Providers Name Role Phone Darryl Stallings M.D. Primary Care Provider [phone] Source Comments Patient records contain information from all sites at [facility]. For routine questions regarding patient records, call [phone] during business hours, M-F 8:00 AM - 5:00 PM Central Time. Record requests for emergency care only can be directed to [phone] at any time.[facility] Allergies No known active allergies Medications Medication Sig Dispensed Refills Start Date End Date Status calcium Take 1 tablet by 0 09/05/2009 Ac tive citrate/vitamin D3 mouth daily. (CITRACAL REGULAR ORAL) magnesium 30 mg Take 30 mg by mouth 0 02/11/2015 Active tablet daily. multivitamin tablet Take 1 tablet by 0 09/06/2009 Active mouth daily. potassium gluconate Take 1 tablet by 0 02/11/2015 Active 2.5 mEq tablet mouth daily. simvastatin (ZOCOR) Take 20 mg by mouth 0 12/27/2020 Active 20 mg tablet at bedtime. triamcinolone Apply 1 application 0 12/02/2021 Active (KENALOG) 0.1 % topically 2 (two) ointment times a day as needed. alendronate (FOSAMAX) Take 1 tablet (70 12 tablet 3 06/26/2022 Active 70 mg tablet mg total) by mouth every 7 (seven) days. 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 06/26/2022 [facility] [place], Adenoma Pituita ry Encounter Corinne S, Nonfunctioning (HCC) P.A.-C. 06/26/2022 [facility] [place], Osteoporosis Wi thout Pathological Fracture ; Encounter Corinne S, Osteopenia; P.A.-C. Osteoporosis Wi thout Pathological Fracture 06/26/2022 [facility] Laboratory Medicine [place], Adenoma Pituitary Encounter Corinne S, Nonfunctioning (HCC) P.A.-C. from Last 3 Months Immunizations Name Administration Dates Next Due H1N1 Inj Preservative Free 08/15/2009 HZV (ZOSTAVAX) 03/18/2015 Influenza (IM) Preservative Free 07/27/2012, 07/14/2011 Influenza Split 07/18/2013, 07/18/2010 Influenza TIV (IM) 07/05/2013, 07/04/2010, 07/15/2009 Influenza high dose QV(65 years or 07/29/2021, 07/18/2013 older) (PF) Influenza, Injectable, Quadrivalent 08/06/2020, 08/03/2018 Influenza, Seasonal, Injectable 07/05/2013, 07/04/2010, 06/19 Influenza, Unspecified 07/26/2017, 07/22/2016, 07/17/2015, 08/02/2014, 07/18/2013, 07/18/2010 PCV13 11/21/2020 PPSV23 07/18/2010, 07/15/2009 RZV (SHINGRIX) 09/26/2019, 07/04/2019 SARS-COV-2 (COVID-19) - MODERNA 12/31/2020, 12/03/2020 Td Preservative Free (TENIVAC, 07/11/2014 DECAVAC) Tdap 03/05/2009 influenza high dose (65 years or 07/18/2013 older) (PF) influenza vaccine quad 11/21/2020, 07/04/2019 (FLUZONE/FLUARIX) (6 months and older)(PF) Family History Medical History Relation Name Comments Coronary artery disease Father Christiano Lyon d in 1991 Hyperlipidemia Father Christiano Lyon Hypertension Father Christiano Lyon in 199 2 Sleep apnea Father Christiano Lyon Coronary artery disease Father's Sister 1 Nitarosalino Abdi Heart attack in 1979's Asthma Father's Sister 2 Lala Camarena Migraines Maternal Grandmother Thuy Ga Stroke Maternal Grandmother Thuy Ga in 199 0s Migraines Mother Tamiko Leigh Stroke Mother Tamiko Leigh Stroke in 2015 Coronary artery disease Paternal Grandfather Michael Lyon d in 8 Stroke Paternal Grandmother Jean Pierre Tubbsbilrichardson Stroke in 1978 Relation Name Status Comments Father Christiano Lyon Father's Sister 1 Nitarosalino Abdi Father's Sister 2 Lala Camarena Maternal Grandmother Thuy Ga Mother Tamiko Leigh Paternal Grandfather Michael Lyon Paternal Grandmother Jean Pierre Lyon Social History Tobacco Use Types Packs/Day Years [...] or relatives? How often do you attend roman catholic or bahai More than 4 time s per year 04/19/2022 services? Do you belong to any clubs or organizations Yes 04/19/2022 such as roman catholic groups, unions, fraternal or athletic groups, or [...] place to sleep or slept in a halfway (including now)? Education Answer Date Recorded What is the highest level of school Associate degree: academ program 04/19/2022 you have completed or the highest degree you have received? Sex Assigned at Date Recorded Female 06/28/2018 6:37 PM CDT Last Filed Vital Signs Vital Sign Reading [...] Mass Index 20.43 06/26/2022 1:40 PM CDT Plan of Treatment Health Maintenance Due Date Last Done Comments CT Colonography 1955 Cologuard 1955 FIT 1955 Hepatitis C Screening 1955 Visit: Annual, age 65+ 1955 Fasting Glucose for Diabetes 06/21/2021 06/21/2018, 016, Screening 02/11/2015, Additional history exists COVID-19 Vaccine (4 - Booster for 10/14/2021 08/19/2021, , Moderna series) 12/03/2020 Depression Screening (Annual 10/18/2021 PHQ-2) Fall Risk Screen (Annual) 10/18/2021 Pneumococcal vaccine (65+ years) 11/21/2021 11/21/2020, 10/2009, (#3) 07/15/2009 Colonoscopy 05/18/2022 05/18/2012 (Performed elsewhere) Colorectal Cancer Screening 05/18/2022 Influenza Vaccine (#1) 2022 07/29/2021, 11/21/2020, 08/06/2020, Additional history exists Mammogram 04/21/2023 04/21/2022, 03/19/2021, 12/27/2019, Additional history exists DTaP,Tdap,and Td Vaccines (3 - Td 07/11/2024 07/11/2014, or Tdap) Cervical Cancer Screening Discontinued 05/21/2014 (Performed elsewhere) Zoster Vaccines Completed 09/26/2019, 07/04/2019, 03/18/2015 Procedures Procedure Name Priority Date/Time Associated Diagnosis Comme nts MR PITUITARY RAD - Routine 06/26/2022 9:54 Adenoma Pituitary Result s for WITHOUT AND WITH (most inpatients AM CDT Nonfunctioning (HCC) this procedure IV CONTRAST and all are in the outpatients) results section. BMD BONE DENSITY RAD - Routine 06/26/2022 8:49 Osteoporosis Without Results for SPINE HIPS (most inpatients AM CDT Pathological this proced ure and all Fracture are in the outpatients) Osteopenia results section. PROLACTIN, S Routine 06/26/2022 7:44 Adenoma Pituitary Results for AM CDT Nonfunctioning (HCC) this pr ocedure are in the results section. CORTISOL, S Routine 06/26/2022 7:44 Adenoma Pituitary Results for AM CDT Nonfunctioning (HCC) this pr ocedure are in the results section. THYROID-STIMULATI Routine 06/26/2022 7:44 Adenoma Pituitary Re sults for NG AM CDT Nonfunctioning (HCC) this pr ocedure HORMONE-SENSITIVE are in the (S-TSH) results section. T4 (THYROXINE), Routine 06/26/2022 7:44 Adenoma Pituitary Resu lts for FREE, S AM CDT Nonfunctioning (HCC) this pr ocedure are in the results section. SODIUM, S/P Routine 06/26/2022 7:44 Adenoma Pituitary Results for AM CDT Nonfunctioning (HCC) this pr ocedure are in the results section. CREATININE WITH Routine 06/26/2022 7:41 Osteoporosis Results f or EGFR, S/P AM CDT this procedure are in the results section. from Last 3 Months Results MR Pituitary without and with IV Contrast (06/26/2022 9:54 AM CDT) Anatomical Region Laterality Modality Head, Neuroradiology RST LOS, Neuroradiology ARZ [facility], N/A Magnetic Resonance Neuroradiology [facility] Specimen (Source) Anatomical Collection Method Collection Time [...] sinus. Corinne Coley P.A.-C. IMG MRI PROCEDURES BMD Bone Density Spine Hips (06/26/2022 8:49 AM CDT) Anatomical Region Laterality Modality Hip, Lumbar Spine, Nuclear Medicine RST LOS, N/A Radiographic Imaging Musculoskeletal ARZ LOS, Muskuloskeletal [facility] Specimen (Source) Anatomical Collection Method Collection Time Re ceived Time Location / / Volume Laterality 06/26/2022 10:48 AM CDT Impressions 06/26/2022 10:48 AM CDT Osteoporosis AP Spine (region: L1-L4) ?? Narrative 06/26/2022 10:48 AM CDT EXAM: ??BMD BONE DENSITY SPINE HIPS Bone Mineral Density (BMD) analysis perf ormed on GE Lunar iDXA with serial number [id number]. COMPARISON: Serial Comparisons Left Total Hip results: [...] including images and graphs, is available in [facility]. In the absence of other causes of [...] Mineral Density (BMD) analysis perf ormed on [employer] with serial number [id number]. COMPARISON: Serial Comparisons Left Total Hip results: [...] including images and graphs, is available in [facility]. In the absence of other causes of [...] AP Spine (region: L1-L4) Corinne Coley P.A.-C. IMG DXA PROCEDURES Prolactin (06/26/2022 7:44 AM CDT) athologist Signature Prolactin Total 10.1 4.8 - 23.3 06/26/2022 DTL ng/mL 8:53 AM CDT Comment: ----ADDITIONAL INFORMATION---- The testing method is an electrochemilum inescence assay manufactured by [employer] and performed on the Josue system. [...] P.A.-C. LAB BLOOD ADD-ON Performing Organization Address City/[facility]/ZIP Code Phon e Number [facility] - 200 [place], [place] [address] [employer] [facility] [facility] [place] [address] [facility] 200 [facility] S-TSH (Thyroid-Stimulating Hormone - Sensitive) (06/26/2022 7:44 AM CDT) athologist Signature TSH, Sensitive 1.5 0.3 - 4.2 06/26/2022 DTL mIU/L 8:53 AM CDT Specimen Anatomical Collection Method Collection Time Receive d Time (Source) Location / / Volume Laterality Blood (Blood, 06/26/2022 7:44 AM 06/26/20 22 8:19 Venous) CDT AM CDT Corinne Coley P.A.-C. LAB BLOOD ADD-ON Performing Organization Address City/[facility]/ZIP Code Phon e Number [facility] [address] [place] [address] T4 (Thyroxine), Free (06/26/2022 7:44 AM CDT) athologist Signature T4 (Thyroxine), 1.2 0.9 - 1.7 06/26/2022 DTL Free, S ng/dL 8:53 AM CDT Specimen Anatomical Collection Method Collection Time Receive d Time (Source) Location / / Volume Laterality Blood (Blood, 06/26/2022 7:44 AM 06/26/20 22 8:19 Venous) CDT AM CDT Corinne Coley P.A.-C. LAB BLOOD ADD-ON Performing Organization Address City/[facility] Phon e Number [facility] [address] Sodium (06/26/2022 7:44 AM CDT) athologist Signature Sodium, S 142 135 - 145 06/26/2022 8:53 DTL mmol/L AM CDT Specimen Anatomical Collection Method Collection Time Receive d Time (Source) Location / / Volume Laterality Blood (Blood, 06/26/2022 7:44 AM 06/26/20 22 8:19 Venous) CDT AM CDT Corinne Coley P.A.-C. LAB BLOOD ADD-ON Performing Organization Address City/State/ZIP Code Phon e Number [address] [place], [place] [address] [address] Cortisol (06/26/2022 7:44 AM CDT) athologist Signature Cortisol AM 11 7 - 25 06/26/2022 DTL Result mcg/dL 9:51 AM CDT Specimen Anatomical Collection Method Collection Time Receive d Time (Source) Location / / Volume Laterality Blood (Blood, 06/26/2022 7:44 AM 06/26/20 22 8:19 Venous) CDT AM CDT Corinne Coley P.A.-C. LAB BLOOD ADD-ON Performing Organization Address City/[facility]/ZIP Code Phon e Number [facility] - [address] Creatinine with Estimated GFR (06/26/2022 7:41 AM CDT) athologist Signature Creatinine 0.89 0.59 - 06/26/2022 [...] P.A.-C. LAB BLOOD ADD-ON Performing Organization Address City/[facility]/ZIP [facility] Phon e Number [facility] - [address] from Last 3 Months Insurance Payer Benefit Plan Subscriber ID Effective Phone Address Typ e / Group Dates MEDICARE MEDICARE A [id number] 2019-Pres [address] [place] [address] BLUE CROSS BCBS [place] [id number] 2019-Pres [phone] PO PREMA X Cost Share BLUE SHIELD BLUE COST ent [phone] [place] [address] Advance Directives For more information, please contact: [phone] Documents on File Type Date Recorded Patient Chair Upholsterer Explanati on Advance Directives 01/29/2015 12:00 AM Legacy doc ument. See document viewer. Care Teams Twist Tester Relationship Specialty Start Date End Date Darryl Stallings M.B.B.S., M.D. [facility] - General Family Medicine 06/10/[address] [place] [address] [place] [phone]
--- OUTSIDE RECORDS SUMMARY | 2022-08-04 08:18 | XMS_ITS | Encounter Summary ---
:1955 Author Organization [facility] Address [address] [place] [address] Care Team Providers Name Role Phone Darryl Stallings M.D. Primary Care Provider [phone] Reason for Referral Specialty Diagnoses / Procedures Referred By Contact Refer red To Contact Darryl Stallings M.B.B.S., [facility] [address] [place] [address] Referral ID Status Reason Start Date Expiration Date Visits Requ ested Visits Authorized Encounter Details Date Type Department Care Team Description 03/03/2022 Orders Only [facility] Darryl Stallings M.B.B.S., M.D. [address] [place], [place] [phone] (Wo rk) Social History [...] or relatives? How often do you attend jew or episcopal More than 4 time s per year 04/19/2022 services? Do you belong to any clubs or organizations Yes 04/19/2022 such as jew groups, unions, fraternal or athletic groups, or [...] place to sleep or slept in a nursing home (including now)? Education Answer Date Recorded What is the highest level of school Associate degree: radha naidu, 03/16/2021 you have completed or the highest technical, or vocational p rogram degree you have received? Sex Assigned at Date Recorded Female 06/28/2018 6:37 PM CDT documented as of this encounter Plan of Treatment Scheduled Referrals Name Type Priority Associated Order Schedule Diagnoses Covid immunization Outpatient Referral Routine Ex pected: office visit Booster 022 (Approximate), Expires: 03/03/2023 documented as of this encounter Visit Diagnoses Not on filedocumented in this encounter Care Teams Passenger Screener Relationship Specialty Start Date End Date Darryl Stallings M.B.B.S., M.D. PCP - General Family Medicine 06/10/[address] [place] [address] S[place] Castellano [phone] documented as of this encounter
--- OUTSIDE RECORDS SUMMARY | 2022-08-04 08:18 | XMS_ITS | Encounter Summary ---
:1955 Author Organization [facility] Address [address] [place] [address] Care Team Providers Name Role Phone Darryl Stallings M.D. Primary Care Provider [phone] Encounter Details Date Type Department Care Team Description 08/12/2021 Orders Only [facility] P[facility] Sa cristo Mello M.D. [address] [place], [place] [phone] (Wo rk) Social History Tobacco Use Types [...] or relatives? How often do you attend mu-ism or lutheran More than 4 time s per year 04/19/2022 services? Do you belong to any clubs or organizations Yes 04/19/2022 such as mu-ism groups, unions, fraternal or athletic groups, or [...] place to sleep or slept in a senior care (including now)? Education Answer Date Recorded What [...] on filedocumented in this encounter Care Teams Cabinetmaker Helper Relationship Specialty Start Date End Date Darryl Stallings M.B.BCamiloSCamilo, [place]. PCP - General Family Medicine 06/10/[address] [place] [address] [place] [phone] documented as of this encounter
--- OUTSIDE RECORDS SUMMARY | 2022-08-04 08:18 | XMS_ITS | Encounter Summary ---
:1955 Author Organization [facility] Address [address] [place] [address] Care Team Providers Name Role Phone Darryl Stallings M.D. Primary Care Provider [phone] Reason for Referral Outpatient (Routine) - Authorized Specialty Diagnoses / Procedures Referred By Contact Refer red To Contact Diagnoses Density Breast Mague Silva M.D. [place] [facility] Procedures NM Molecular Breast Imaging [address] [place] [address] Referral ID Status Reason Start Date Expiration Date Visits V isits Requested Authorized [id number] Authorized 01/28/2022 01/28/2023 6 6 Outpatient (Routine) - Closed Specialty Diagnoses / Procedures Referred By Contact Refer red To Contact Diagnoses Screening Mammogram Average Risk Patient Mague Silva [place] [facility] Procedures BI Breast Screening Bilateral with Tomosynthesis Alek [address] [place] [address] Referral ID Status Reason Start Date Expiration Date Visits Requ ested Visits Authorized [id number] Closed 01/28/2022 01/28/2023 1 1 Reason for Visit Reason Comments Pre-visit Testing Orders Encounter Details Date Type Department Care Team Description 01/20/2022 Clinical Breast Diagnostic Shira, Pre-visit Testing Communication Clinic in [place] Orders [place], [address] [place], [place] [address] [facility] [address] [place], [place] [phone] (Work) [phone] Social History Tobacco Use Types Packs/Day Years [...] How often do you attend sabianist or temple More than 4 time s per year [...] this encounter Miscellaneous Notes Telephone Encounter - Zeynep Jim - 01/20/2022 8:36 AM CDT BREAST CLINIC FOLLOW-UP RECOMMENDATIONS: Bilateral screening mammogram next due in February 2022. MBI next due in February 2022. Clinical breast exam next due in February 2022. Breast self-awareness encouraged and the patient is advised to seek medical attention for any breastrelated concerns. documented in this encounter Plan of Treatment Not on filedocumented as of this encounter Results NM Molecular Breast Imaging [...] ASSESSMENT: BI-RADS: 2: Benign. Mague Silva M.D. IMG NM PROCEDURES BI Breast Screening Bilateral with Tomosynthesis (04/21/2022 10:34 AM CDT) Anatomical Region Laterality Modality Breast, Breast Imaging RST LOS, Breast Imaging ARZ LOS, [address] Bilateral Mammography Imaging FLA LOS Specimen (Source) Anatomical Collection Method Collection Time Re ceived Time Location / / Volume Laterality 04/21/2022 11:12 AM CDT Impressions 04/21/2022 11:14 AM CDT Benign. RECOMMENDATION: ??Annual Screening Mammo gram ASSESSMENT: ??BI-RADS: 2: Benign. Narrative 04/21/2022 11:14 AM CDT EXAM: ??BI BREAST SCREENING BILATERAL WITH TOMOSYNTHESIS Current study was evaluated with a [email or web address] Aided Detection (CAD) system. INDICATION: ??Screening mammogram. [...] TOMOSYNTHESIS Current study was evaluated with a [employer] Aided Detection (CAD) system. INDICATION: Screening mammogram. [...] Screening Mammogram Average Risk Patient - Primary Density Breast Density Breast Screening Mammogram Average Risk Patient documented in this encounter Care Teams Research Scientist Relationship Specialty Start Date End Date Darryl Stallings M.B.B.S., M.D. PCP - General Family Medicine 06/10/[address] [place] [phone] documented as of this encounter
--- OUTSIDE RECORDS SUMMARY | 2022-08-04 08:18 | XMS_ITS | Encounter Summary ---
:1955 Author Organization [facility] Address [address] [place] [address] Care Team Providers Name Role Phone Darryl Stallings M.D. Primary Care Provider [phone] Reason for Referral Outpatient (Routine) - Closed Specialty Diagnoses / Procedures Referred By Contact Refer red To Contact Diagnoses Screening Mammogram Average Risk Patient Mague Silva [place] [facility] Procedures BI Breast Screening Bilateral with Tomosynthesis M.D. [address] [place] [phone] Referral ID Status Reason Start Date Expiration Date Visits Requ ested Visits Authorized [id number] Closed 11/04/2020 11/04/2021 1 1 Reason for Visit Outpatient (Routine) - Closed Specialty Diagnoses / Procedures Referred By Contact Refer red To Contact Diagnoses Screening Mammogram Average Risk Patient Mague Silva [place] [facility] Procedures BI Breast Screening Bilateral with Tomosynthesis M.DCamilo [address] [place] [phone] Referral ID Status Reason Start Date Expiration Date Visits Requ ested Visits Authorized [id number] Closed 11/04/2020 11/04/2021 1 1 Encounter Details Date Type Department Care Team Description 03/19/2021 Hospital Encounter Department of Mague Silva reening Mammogram Radiology ruiz Lockwood M.D. Average Risk [place] [address] [address] [facility] Patient [place], [place] [address] [facility] [address] [place], [place] [phone] (Work) [phone] Social History Tobacco Use Types Packs/Day Years [...] or relatives? How often do you attend confucianist or synagogue More than 4 time s per year 04/19/2022 services? Do you belong to any clubs or organizations Yes 04/19/2022 such as confucianist groups, unions, fraternal or athletic groups, or [...] by 0 2014 mEq tablet mouth daily. simvastatin (ZOCOR) 20 mg Take 20 mg by mouth 0 0 12/27/2020 tablet at bedtime. biotin 1 mg capsule Take 1 capsule by 0 2 04/21/2022 mouth daily. documented as of this encounter Plan of Treatment Not on filedocumented as of this encounter Procedures Procedure Name Priority Date/Time Associated Comments Diagnosis BI BREAST SCREENING RAD - Routine 03/19/2021 10:31 Screening Res ults for BILATERAL WITH (most inpatients AM CDT Mammogram Average this procedure TOMOSYNTHESIS and all Risk Patient are in the outpatients) results section. documented in this encounter Results BI Breast Screening Bilateral with Tomosynthesis (03/19/2021 10:31 AM CDT) Anatomical Region Laterality Modality Breast, Breast Imaging RST LOS, Breast Imaging ARZ LOS, Terri st Bilateral Mammography Imaging FLA [facility] Specimen (Source) Anatomical Collection Method Collection Time Re ceived Time Location / / Volume Laterality 03/19/2021 2:59 PM CDT Impressions 03/19/2021 3:02 PM CDT Negative. RECOMMENDATION: ??Annual Screening Mammo gram ASSESSMENT: ??BI-RADS: 1: Negative. Narrative 03/19/2021 3:02 PM CDT EXAM: ??BI BREAST SCREENING BILATERAL WITH TOMOSYNTHESIS Current study was evaluated with a Thoor[employer] ter Aided Detection (CAD) system. INDICATION: ??Screening [...] TOMOSYNTHESIS Current study was evaluated with a [employer] Aided Detection (CAD) system. INDICATION: Screening mammogram. COMPARISON: Prior exam(s) were available and reviewed for comparison. DENSITY: c. The breast(s) are heterogene ously dense, which may obscure small masses. FINDINGS: No mammographic findings of ma lignancy. Stable postoperative and post radiation changes in the right breast. IMPRESSION: Negative. RECOMMENDATION: Annual Screening Mammogr am ASSESSMENT: BI-RADS: 1: Negative. Mague Silva M.D. IMG BI PROCEDURES documented in this encounter Visit Diagnoses Diagnosis Screening Mammogram Average Risk Patient documented in this encounter Care Teams Local Company Refrigerated Truck Driver Relationship Specialty Start Date End Date Darryl Stallings M.B.B.S., M.D. PCP - General Family Medicine 06/10/[address] [place] [phone] documented as of this encounter
--- OUTSIDE RECORDS SUMMARY | 2022-08-04 08:18 | XMS_ITS | Encounter Summary ---
:1955 Author Organization [facility] Address [address] [place] [address] Care Team Providers Name Role Phone Darryl Stallings M.D. Primary Care Provider [phone] Reason for Visit Reason Comments Establish Care Appointment Request (Routine) - Closed Specialty Diagnoses / Procedures Referred By Contact Refer red To Contact Breast Clinic Referral ID Status Reason Start Date Expiration Date Visits Requ ested Visits Authorized [id number] Closed 12/19/2021 12/19/2022 1 1 Encounter Details Date Type Department Care Team Description 04/21/2022 Office Visit Breast Diagnostic Mague Silva er Breast Personal History (Primary Dx); Clinic in [place] Kothari M.D. Screening Mammogram Breast Cancer [place] 200 [facility] [address] [place] [phone] Social History Tobacco Use Types Packs/Day Years [...] or relatives? How often do you attend hinduism or jew More than 4 time s per year 04/19/2022 services? Do you belong to any clubs or organizations Yes 04/19/2022 such as hinduism groups, unions, fraternal or athletic groups, or [...] pay for the very basics like Not hugo mitul hard 04/19/2022 food, housing, medical care, [...] place to sleep or slept in a detention (including now)? Education Answer Date Recorded What is the highest level of school Associate degree: academ [employer] program 04/19/2022 you have completed or the highest degree you have received? Sex Assigned at Date Recorded Female 06/28/2018 6:37 PM CDT documented as of this encounter Last Filed Vital Signs Vital Sign Reading Time Taken Comments Blood Pressure 107/65 04/21/2022 2:36 PM CDT Pulse 58 04/21/2022 2:36 PM CDT Temperature - - Respiratory Rate - - Oxygen Saturation - - Inhaled Oxygen Concentration - - Weight 61.2 kg (134 lb 14.7 oz) 04/21/2022 2:36 PM CDT Height 173.7 cm (5' 8.39) 04/21/2022 2:36 PM CDT Body Mass Index 20.28 04/21/2022 2:36 PM CDT documented in this encounter Progress Notes Mague Silva M.D. - 04/21/2022 3:00 PM CDT SUBJECTIVE CHIEF COMPLAINT / REASON FOR VISIT Recheck visit HISTORY OF PRESENT ILLNESS Patient is a very pleasant 66 y.o. woman who returns now for follow up on her breast concerns. She has a history of ILC diagnosed 2009 s/p WLE, radiation and adjuvant T followed by 5 years of endocrine therapy. She returns today for breast cancer screening. She is doing well without any new breast concerns, nomasses, nodules, nipple changes or discharge. ?? Screening mammogram and MBI show no findings of malignancy. The following portions of the patient's history were reviewed and updated as appropriate: allergies,current medications, family history, medical history, social history, surgical history and problem list. OBJECTIVE VITAL SIGNS BP 107/65 (BP Location: Left arm, Patient Position: Sitting, Cuff Size: Regular) Pulse (!) 58 Ht173.7 cm Wt 61.2 kg LMP 10/18/2011 (Within Months) BMI 20.28 kg/m?? PHYSICAL EXAMINATION Constitutional: Well-developed and well-nourished. No distress. Neck: [...] PLAN #1 Personal history of breast cancer 2008 s/o WLE, radiation, adjuvant TC and endocrine therapy for 5 years #2 Dense breast tissue Ms. Berumen is a very pleasant 66 yo woman here for screening and breast cancer follow-up. Exam and imaging are all reassuring. We discussed that she may transition back to a primary care doctor for follow-up if she has somebody who she is comfortable with. BREAST CLINIC FOLLOW-UP RECOMMENDATIONS: Bilateral screening mammogram next due in April 2023. Supplemental MBI next due in April 2024. Clinical breast exam next due in April 2023. Breast self-awareness encouraged and the patient is advised to seek medical attention for any breastrelated concerns. documented in this encounter Plan of Treatment Not on filedocumented as of this encounter Visit Diagnoses Diagnosis Cancer Breast Personal History - Primary Screening Mammogram Breast Cancer documented in this encounter Care Teams Career Technical Education Teacher Relationship Specialty Start Date End Date Darryl Stallings M.B.B.S., M.D. PCP - General Family Medicine 06/10/[address] [place] [phone] documented as of this encounter
--- OUTSIDE RECORDS SUMMARY | 2022-08-04 08:19 | XMS_ITS | Encounter Summary ---
:1955 Author Organization [facility] Address [address] [place] [address] Care Team Providers Name Role Phone Darryl Stallings M.D. Primary Care Provider [phone] Encounter Details Date Type Department Care Team Description 04/19/2019 Orders Only [facility] PCP [facility] MNT Darryl Stallings I. , Screening Lipid Alek Johns [address] [place] [id number] (Wo rk) Social History Tobacco Use Types Packs/Day Years Used Date Smoking Tobacco: Never Smokeless Tobacco: Never Alcohol Use Standard Drinks/Week Comments Yes 0 (1 standard drink = 0.6 oz pure [...] or relatives? How often do you attend moravian or anabaptist More than 4 time s per year 04/19/2022 services? Do you belong to any clubs or organizations Yes 04/19/2022 such as moravian groups, unions, fraternal or athletic groups, or [...] to sleep or slept in a senior living (including now)? Sex Assigned at Date Recorded Female 06/28/2018 6:37 PM CDT documented as of this encounter Plan of Treatment Not on filedocumented as of this encounter Visit Diagnoses Diagnosis Screening Lipid documented in this encounter Care Teams Obiee Architect Relationship Specialty Start Date End Date Darryl Stallings M.B.B.S., M.D. PCP - General Family Medicine 06/10/[address] [place] [phone] documented as of this encounter
--- OUTSIDE RECORDS SUMMARY | 2022-08-04 08:19 | XMS_ITS | Encounter Summary ---
:1955 Author Organization [facility] Address [address] [place] [address] Care Team Providers Name Role Phone Darryl Stallings M.D. Primary Care Provider [phone] Reason for Visit Reason Comments [facility] Nurse Line Encounter Details Date Type Department Care Team Description 04/30/2020 Clinical Division of [facility] [place] Nurse Renetta martinez Communication Endocrinology in [place], [place] P.A.-C. [address] [facility] [address] [place] [phone] Social History Tobacco Use Types Packs/Day Years [...] How often do you attend religious or muslim More than 4 time s per year [...] level of school Associate degree: radha naidu, 12/03/2019 you have completed or the highest technical, or vocational p yoselin degree you have received? Sex Assigned at Date Recorded Female 06/28/2018 6:37 PM CDT documented as of this encounter Miscellaneous Notes Telephone Encounter - Patrick Trevizo - 04/30/2020 12:42 PM CDT ([facility] and [facility] locations only: If the patient is not having symptoms and is requesting COVID-19 Nasal Swab testing only, use the process listed in the COVID-19 Patient Requesting COVID PCR Test OTG COVID-19 [place] Patient Requesting COVID PCR Test). In the past 30 days have you had a swab for COVID that tested positive? No Route reply to: P RST END Scheduling Scheduling Contact Number: [phone] documented in this encounter Plan of Treatment Not on filedocumented as of this encounter Visit Diagnoses Not on filedocumented in this encounter Care Teams Service Center Representative Relationship Specialty Start Date End Date Darryl Stallings M.B.BCamiloSCamilo, MRosa. PCP - General Family Medicine 06/10/[address] [place] [address] SABINO Castellano [phone] documented as of this encounter
--- OUTSIDE RECORDS SUMMARY | 2022-08-04 08:19 | XMS_ITS | Encounter Summary ---
:1955 Author Organization [facility] Address [address] [place] [address] Care Team Providers Name Role Phone Darryl Stallings M.D. Primary Care Provider [phone] Reason for Visit Reason Onset Date Comments Pre-visit Testing Orders 10/04/2019 Encounter Details Date Type Department Care Team Description 10/04/2019 Clinical Communication Breast Diagnostic Judy Harrison Pre-visit Testing Clinic in [place], PRISON TEACHER, Orders [facility] C.N[facility] [address] [facility] [address] [place] [phone] Social History Tobacco Use Types Packs/Day Years [...] or relatives? How often do you attend baptist or judaism More than 4 time s per year 04/19/2022 services? Do you belong to any clubs or organizations Yes 04/19/2022 such as baptist groups, unions, fraternal or athletic groups, or [...] or slept in a fdc (including now)? Sex Assigned at Date Recorded Female 06/28/2018 6:37 PM CDT documented as of this encounter Plan of Treatment Not on filedocumented as of this encounter Results BI Breast Screening Bilateral with Tomosynthesis (12/05/2019 9:51 AM ENGINEER GAS PUMPING STATION) Anatomical Region Laterality Modality Breast, Breast Imaging RST LOS, Breast Imaging ARZ LOS, Terri st Bilateral Mammography Imaging FLA LOS Specimen (Source) Anatomical Collection Method Collection Time Re ceived Time Location / / Volume Laterality 12/05/2019 12:20 PM ENGINEER GAS PUMPING STATION Impressions 12/05/2019 12:25 PM ENGINEER GAS PUMPING STATION Benign. RECOMMENDATION: ??Annual Screening Mammo gram ASSESSMENT: ??BI-RADS: 2: Benign. Narrative 12/05/2019 12:25 PM ENGINEER GAS PUMPING STATION EXAM: ??BI BREAST SCREENING BILATERAL WITH TOMOSYNTHESIS Current study was evaluated with a Compu ter Aided Detection (CAD) system. INDICATION: ??Screening mammogram. COMPARISON: ??Prior exam(s) were availab le and reviewed for comparison. DENSITY: ??c. The breast(s) are heteroge neously dense, which may obscure small masses. FINDINGS: ??No findings of malignancy. P osttreatment changes right breast. No significant change since prior exam. Procedure Note Dianne Castro M.D. - 12/05/2019Forma tting of this note might be different [...] Screening Mammogr am ASSESSMENT: BI-RADS: 2: Benign. Judy Harrison APRN C.NCamiloPCamilo IMG BI PROCEDURES documented in this encounter Visit Diagnoses Diagnosis Screening Mammogram Average Risk Patient - Primary Screening Mammogram Average Risk Patient documented in this encounter Care Teams Corporate Strategy Associate Relationship Specialty Start Date End Date Darryl Stallings M.B.B.S., M.D. PCP - General Family Medicine 06/10/[address] [place] [phone] documented as of this encounter
--- OUTSIDE RECORDS SUMMARY | 2022-08-04 08:19 | XMS_ITS | Encounter Summary ---
:1955 Author Organization [facility] Address [address] [place] [address] Care Team Providers Name Role Phone Darryl Stallings M.D. Primary Care Provider [phone] Reason for Referral Outpatient (Routine) - Closed Specialty Diagnoses / Procedures Referred By Contact Refer red To Contact Diagnoses Density Breast Cancer Breast Personal History Mague Silva M.D. [facility] Procedures NM Molecular Breast Imaging [address] [place] [address] Referral ID Status Reason Start Date Expiration Date Visits Requ ested Visits Authorized [id number] Closed 12/05/2019 12/04/2020 6 6 LE MAKER Reason for Visit Reason Comments Follow-up Appointment Request (Routine) - Closed Specialty Diagnoses / Procedures Referred By Contact Refer red To Contact Breast Clinic Referral ID Status Reason Start Date Expiration Date Visits Requ ested Visits Authorized [id number] Closed 10/04/2019 10/03/2020 Encounter Details Date Type Department Care Team Description 12/05/2019 Office Visit Breast Diagnostic Mague Silva Breast (Primary Dx); Clinic in [place] Kothari M.D. Cancer Breast Personal History [place] 200 [facility] [address] [place] [phone] Social History Tobacco Use Types Packs/Day Years [...] or relatives? How often do you attend latter day or moravian More than 4 time s per year 04/19/2022 services? Do you belong to any clubs or organizations Yes 04/19/2022 such as latter day groups, unions, fraternal or athletic groups, or [...] Sign Reading Time Taken Comments Blood Pressure 102/68 12/05/2019 2:02 PM PICKLE MAKER Pulse 55 12/05/2019 2:02 PM PICKLE MAKER Temperature - - Respiratory Rate - - Oxygen Saturation - - Inhaled Oxygen Concentration - - Weight 61.4 kg (135 lb 7.6 oz) 12/05/2019 2:02 PM PICKLE MAKER Height 174.7 cm (5' 8.78) 12/05/2019 2:02 PM PICKLE MAKER Body Mass Index 20.13 12/05/2019 2:02 PM PICKLE MAKER documented in this encounter Progress Notes Mague Silva M.D. - 12/05/2019 2:30 PM CST SUBJECTIVE CHIEF COMPLAINT / REASON FOR VISIT Recheck visit HISTORY OF PRESENT ILLNESS Patient is a very pleasant 64 y.o. year old woman who returns now for follow up on her breast concerns. She has a history of right breast cancer diagnosed in 2008, her oncologic history is as follows: 1. Ms. Berumen was diagnosed with right breast cancer in 2008. ??Excisional biopsy showed, by Erickson review, invasive lobular carcinoma, grade II (of III), forming a 1.1- x 0.7- x 0.7-cm mass. ??No angiolymphatic invasion was present. ??Margins were negative with the closest margin 1 cm. ??Estrogen receptors were 11% to 25% positive, progesterone receptors were 0% staining, and HER-2/vicente was negative with a score of 1+. ?? 3. ??May 02, 2009: ??[place] lymph node biopsy was performed. ??By outside report, four lymph nodes were removed, and all were negative. ?? 4. ??The patient received adjuvant chemotherapy with her local oncologist in [place], [place]. ??She received four cycles of Taxotere and cyclophosphamide which she tolerated well with some mild residual peripheral neuropathy. ?? 5. ??September 2009: ??Patient completed a course of radiation to the right breast. ??She received treatment with Dr. Fly Zelaya at [facility]. ?? 6. ??November 18, 2009: ??Consultation with Dr. Reinaldo Jarquin, [facility]. ??Dr. Jarquin recommended endocrine therapy. 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 ??HER-2/vicente was negative both by IHC and FISH testing. ??Patient began adjuvant tamoxifen in November 2009. ?? 7. ??January 2013: ??Dr. Jarquin discussed the options of continuing with tamoxifen for a full five years or switch to an aromatase inhibitor and stop at five years total treatment versus ten years of therapy with five years of tamoxifen and five years of letrozole. ??Because she was very early postmenopausal when she was initially diagnosed with breast cancer, they elected to continue with five years oftamoxifen and then consider five years of an aromatase inhibitor. ?? 8. ??October 2014: ??Dr. Jarquin discussed with the patient switching to anastrozole which the patientdid do in October 2014. ?? 9. ??December 2014: ??Patient was experiencing joint pain in her knees, hips, and feet. ??Dr. Jarquin advised stopping the Arimidex and then did transition her to exemestane in January 2015. ?? 10. ??February 11, 2015: ??Subsequent visit in Oncology with Su Suresh with Dr. Jarquin as collaborating physician. ??The patient continued to have some arthralgias as well as some vaginal dryness. ??Additionally, bone density testing showed osteopenia in the lumbar spine with a T-score of -2. ??Dr. Jarquin advised that the patient could consider discontinuing hormonal therapy at this time given the low ER on her tumor pathology versus continuing on with an aromatase inhibitor for another five years if she is able to tolerate. She returns today for follow-up. She does not have any breast concerns today. She denies new palpable masses, skin changes including rash or redness, dimpling or puckering of the skin, flattening or inversion of the nipple, and nipple discharge. She denies any unintentional weight loss, new headaches or focal changes, abdominal pains or deep bony pains. She had a screening mammogram that showed heterogeneously dense breast tissue and no findings of malignancy. The following portions of the patient's history were reviewed and updated as appropriate: allergies,current medications, family history, medical history, social history, surgical history and problem list. OBJECTIVE PHYSICAL EXAM BP 102/68 (BP Location: Left arm, Patient Position: Sitting, Cuff Size: Regular) Pulse (!) 55 Ht174.7 cm Wt 61.4 kg BMI 20.13 kg/m?? Constitutional: Well-developed and well-nourished. No distress. Neck: Neck supple. No thyromegaly present. Breast: Symmetric bilaterally. Nipples are everted bilaterally. No overlying skin changes. On palpation of the bilateral breasts there are no dominant masses, nodules or areas of thickening. Lymphadenopathy: No cervical, supraclavicular, infraclavicular or axillary lymphadenopathy palpable. Skin: Skin is warm and dry. No rash noted. Psychiatric: She has a normal mood and affect. ASSESSMENT / PLAN #1 Density Breast #2 Cancer Breast Personal History Ms. Berumen is a pleasant 64 yo with a personal history of breast cancer. She comes today for follow-up. Her exam and history today are very reassuring, as is her mammogram. She does have dense breast tissue. She had an MBI in 2017 and would be interested in getting another. I will place that order today and will notify her of results through the patient portal once they are available. PATIENT EDUCATION Ready to learn, no apparent learning barriers were identified; learning preferences include listening. Explained diagnosis and treatment plan; patient expressed understanding of the content. Total visit time greater than 25 minutes, with over 50% spent counseling with the patient and coordination of care activities described above. LE MAKER documented in this encounter Plan of Treatment Not on filedocumented as of this encounter Results (ABNORMAL) NM Molecular Breast Imaging (12/19/2019 11:20 AM PICKLE MAKER) Anatomical Region Laterality Modality Breast, Nuclear Medicine RST LOS, Breast Imaging ARZ LOS, N/ A Nuclear Medicine Breast Imaging FLA LOS, Nuclear Medicine Specimen (Source) Anatomical Collection Method Collection Time Re ceived Time Location / / Volume Laterality 12/19/2019 11:32 AM PICKLE MAKER Impressions 12/19/2019 11:35 AM PICKLE MAKER Probably benign uptake in the left superior breast. RECOMMENDATION: ??Individualized Recomme ndation Additional diagnostic workup including s pot mammography and targeted ultrasound of the left superior breast. If no corre late is seen, recommend 6 month follow-up MBI. ASSESSMENT: ??BI-RADS: 3: Probably Benig n. Narrative 12/19/2019 11:35 AM PICKLE MAKER EXAM: ??NM MOLECULAR BREAST IMAGING INDICATION: ??Dense breast tissue HORMONAL STATUS: ??Postmenopausal. COMPARISON: ??Prior exam(s) were availab le and reviewed for comparison. TECHNIQUE: ??Bilateral CC and MLO views obtained on a dual-head CZT gamma camera after radiotracer injection. ?? RADIOISOTOPE DOSE: ?? Route: intravenous technetium Tc 99m sestamibi injection (M BI) (Tc-99m SESTAMIBI),8.5 millicurie BACKGROUND UPTAKE INTENSITY: ??b. Minima l/Mild FINDINGS: ?? RIGHT BREAST: ??No abnormal radiotracer uptake in the right breast. LEFT BREAST: ??Subtle uptake in the left superior breast, only really appreciated on the MLO view, was not definitively se en on prior, but is likely related to background uptake. aMgue Silva M.D. IMG NM PROCEDURES documented in this encounter Visit Diagnoses Diagnosis Density Breast - Primary Cancer Breast Personal History Density Breast Cancer Breast Personal History documented in this encounter Care Teams Exercise Physiologist Relationship Specialty Start Date End Date Darryl Stallings M.B.B.S., M.D. PCP - General Family Medicine 06/10/[address] [place] [phone] documented as of this encounter
--- OUTSIDE RECORDS SUMMARY | 2022-08-04 08:19 | XMS_ITS | Encounter Summary ---
:1955 Author Organization [facility] Address [address] [place] [address] Care Team Providers Name Role Phone Darryl Stallings M.D. Primary Care Provider [phone] Reason for Referral Outpatient (Routine) - Closed Specialty Diagnoses / Procedures Referred By Contact Refer red To Contact Diagnoses Osteoporosis Without Pathological Fracture Osteopenia Corinne Coley [place] [facility] Procedures BMD Bone Density Spine Hips P.A.-C. [address] [place] [address] Referral ID Status Reason Start Date Expiration Date Visits Requ ested Visits Authorized [id number] Closed 07/02/2020 07/02/2021 1 1 MRI/CAT/PET Scan (Routine) - Closed Specialty Diagnoses / Procedures Referred By Contact Refer red To Contact Radiology Diagnoses Adenoma Pituitary Nonfunctioning (HCC) [facility] Procedures MR Pituitary without and with IV Contrast P.A.-C. [address] [place] [address] Referral ID Status Reason Start Date Expiration Date Visits Requ ested Visits Authorized [id number] Closed 07/02/2020 07/02/2021 1 1 Outpatient (Routine) - Closed Specialty Diagnoses / Procedures Referred By Contact Refer red To Contact Endocrinology Diagnoses Adenoma Pituitary Nonfunctioning (HCC) Osteopenia [facility] P.A.-CCamilo [address] [place] [address] Referral ID Status Reason Start Date Expiration Date Visits Requ ested Visits Authorized [id number] Closed 07/02/2020 07/02/2021 1 1 Reason for Visit Outpatient (Routine) - Closed Specialty Diagnoses / Procedures Referred By Contact Refer red To Contact Endocrinology Diagnoses Adenoma Pituitary Nonfunctioning (HCC) Osteopenia [facility] P[facility] [address] [place] [address] Referral ID Status Reason Start Date Expiration Date Visits Requ ested Visits Authorized [id number] Closed 06/29/2018 06/29/2019 1 1 Encounter Details Date Type Department Care Team Description 07/02/2020 Office Visit Division of [place] Corinne Adenoma Pit uitary Nonfunctioning (HCC) (Primary Dx); Endocrinology in S, P.A.-C. Osteopenia; [place], [place] 200 [facility] Osteoporosis Without Pathological Fractu re [address] [place] [phone] Social History Tobacco Use Types Packs/Day Years [...] or relatives? How often do you attend oriental orthodox or baptist More than 4 time s per year 04/19/2022 services? Do you belong to any clubs or organizations Yes 04/19/2022 such as oriental orthodox groups, unions, fraternal or athletic groups, or [...] place to sleep or slept in a prison (including now)? Education Answer Date Recorded What is the highest level of school Associate degree: [employer] program 06/27/2020 you have completed or the highest degree you have received? Sex Assigned at Date Recorded Female 06/28/2018 6:37 PM CDT documented as of this encounter Last Filed Vital Signs Vital Sign Reading Time Taken Comments Blood Pressure 91/71 07/02/2020 2:03 PM CDT Pulse 65 07/02/2020 2:03 PM CDT Temperature - - Respiratory Rate - - Oxygen Saturation - - Inhaled Oxygen Concentration - - Weight 60.3 kg (132 lb 15 oz) 07/02/2020 2:03 PM CDT Height 174 cm (5' 8.5) 07/02/2020 2:03 PM CDT Body Mass Index 19.92 07/02/2020 2:03 PM CDT documented in this encounter Progress Notes Corinne Coley P.A.-C. - 07/02/2020 2:30 PM CDT SUBJECTIVE ENDOCRINOLOGY ESTABLISHED PATIENT VISIT Service Date: 07/02/2020 CHIEF COMPLAINT/REASON FOR VISIT Mrs. 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 HISTORY OF PRESENT ILLNESS Mrs. Rhonda Berumen is a pleasant 64 y.o. 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 Ms. Berumen had a transsphenoidal resection performed in [place] on December 11, 2003. Pathology showeda non-functioning pituitary adenoma. -Post-operative course: Had serial MRIs, question of residual adenoma around the right carotid in 2010. The patient visited with Dr. De Leon for the possibility of gamma-knife radiosurgery, but this was never performed and she continued to follow-up on a regular basis. No evidence of hypopituitarism post-operatively and no other complications. -Last MRI: June 2018. Stable to minimal interval decrease in size of residual pituitary adenoma along the right lateral aspect of the sella turcica with otherwise stable right cavernous sinus when compared to multiple prior examinations, as Above. -Pituitary related medications: None Taking calcium/vitamin D3 (500/1000) once daily. -Interval History: Mrs. Berumen is doing well. She is tired at the end of a day but is otherwise doing fine. No fractures. Walking frequently, strength training occasionally. Having a glass of milk in the morning for calcium intake. No signs or symptoms of pituitary insufficiency. Headaches unchanged - usually sinus related. No peripheral vision loss. No significant concerns otherwise. Review of Systems Pertinent items are noted in HPI. The following systems were negative: Constitutional, Skin, Eyes, ENT, CV, Respiratory, GI, , Hematologic, Musculoskeletal, Neuro, Psych The following portions of the patient's history were reviewed and updated as appropriate: allergies,current medications, problem list and medical history. OBJECTIVE Vital Signs BP 91/71 (BP Location: Left arm, Patient Position: Sitting, Cuff Size: Regular) Pulse 65 Ht 174 cm Wt 60.3 kg LMP 10/18/2011 (Within Months) BMI 19.92 kg/m?? Physical Exam Constitutional General: She is not in acute distress. Appearance: Normal appearance. She is well-developed. Pulmonary Effort: Pulmonary effort is normal. Musculoskeletal Normal range of motion. Neurological General: No focal deficit present. Mental Status: She is alert and oriented to person, place, and time. Mental status is at baseline. Psychiatric Mood and Affect: Mood normal. Behavior: Behavior normal. Labs Results for orders placed or performed during the hospital encounter of 07/02/20 Cortisol Result Value Ref Range AM Result 13 7 - 25 mcg/dL Creatinine with Estimated GFR Result Value Ref Range Creatinine, S 0.94 0.59 - 1.04 mg/dL eGFR-Non Black 64 >=60 mL/min/BSA eGFR-Black 74 >=60 mL/min/BSA Sodium Result Value Ref Range Sodium, S 142 135 - 145 mmol/L T4 (Thyroxine), Free Result Value Ref Range T4 (Thyroxine), Free, S 1.3 0.9 - 1.7 ng/dL S-TSH (Thyroid-Stimulating Hormone - Sensitive) Result Value Ref Range TSH, Sensitive, S 1.1 0.3 - 4.2 mIU/L Prolactin Result Value Ref Range Prolactin Total 9.6 4.8 - 23.3 ng/mL Pending labs include: None Imaging Mr Brain Without And With Iv Contrast Result Date: 07/02/2020 Narrative: EXAM: MR PITUITARY WITHOUT AND WITH IV CONTRAST COMPARISON: Multiple prior brain MRIs, most recently 06/21/2018 dating back to 12/05/2003. FINDINGS: Postoperative changes associated with transsphenoidal resection of pituitary macroadenoma in November 2003. No significant change from the prior exam dated 06/21/2018. Stable size and appearance of presumed residual pituitary adenoma within the right lateral aspect of the sella to right cavernous sinus. Stable pituitary gland tissue along thefloor and left lateral aspect of the sella. Persistent leftward deviation of the pituitary infundibulum. Stable minimal leukoaraiosis. Stable mild generalized age-related parenchymal volume loss. No evidence of hydrocephalus. Mild mucosal thickening within the paranasal sinuses. Impression: No significant change from the prior exam dated 06/21/2018, with persistent presumed residual pituitary adenoma along the right sella to cavernous sinus. Bmd Bone Density Spine Hips Result Date: 06/21/2018 FRAX Score Major Osteoporotic: 9.7% Hip Fracture: 1.7% Impression: IMPRESSION: Osteopenia ASSESSMENT / PLAN Ms. Berumen and I reviewed pertinent labs and imaging results together. Overall, from the endocrine perspective she is doing well. We have agreed on a plan as follows: #1 Adenoma Pituitary Nonfunctioning (HCC) No evidence of pituitary dysfunction on labs and MRI fortunately stable. She is happy to hear this news. Would recommend continued surveillance. We will plan for two years for next MRI. If no changes, will consider three years for next imaging. #2 Osteopenia Bone density continues to show osteopenia, with changes less than the least significant change from previous. Although there is a change from baseline in 2010, given FRAX scores and no fragility fractures would recommend continued calcium/vitamin D supplement and weight-bearing exercise. Will obtain bone density in two years as well when we see her back for MRI. She will contact us if a fragility fracture occurs and we can discuss treatment as needed. Follow-up plan: Two years with repeat labs, MRI, bone density, and return visit with me. Sooner as needed if symptoms change. Ms. Berumen was in agreement with the above plan and did not have any additional questions at the end of the visit. I spent over half of a total of 20 minutes face to face with the patient in counseling and discussion and/or coordination of care as described above. documented in this encounter Plan of Treatment Scheduled Referrals Name Type Priority Associated Diagnoses Order [facility] Endocrinology office Outpatient Routine Adenoma Pituitary Ex pected: visit (clinic) Referral Nonfunctioning ( HCC) 07/02/2022 Osteopenia (Approximate), Expires: 07/02/2024 documented as of this encounter Results MR Pituitary without and with IV Contrast (06/26/2022 9:54 AM CDT) Anatomical Region Laterality Modality Head, Neuroradiology RST LOS, Neuroradiology ARZ [facility], N/A Magnetic Resonance Neuroradiology FLA [facility] Specimen (Source) Anatomical Collection Method [...] into the cavernous sinus. Corinne Coley P.A.-C. IMKatrin MRI PROCEDURES BMD Bone Density Spine Hips [...] Mineral Density (BMD) analysis perf ormed on [employer] with serial number [id number]. COMPARISON: Serial Comparisons Left Total Hip results: [...] including images and graphs, is available in [employer]. In the absence of other causes of [...] HIPS Bone Mineral Density (BMD) analysis perf [facility] on [employer] with serial number [id number]. COMPARISON: Serial Comparisons Left Total Hip results: [...] including images and graphs, is available in [employer]. In the absence of other causes of [...] AP Spine (region: L1-L4) Corinne Coley P.A.-C. IM DXA PROCEDURES Prolactin (06/26/2022 7:44 AM CDT) athologist Signature Prolactin Total 10.1 4.8 - 23.3 06/26/2022 DTL ng/mL 8:53 AM CDT Comment: ----ADDITIONAL INFORMATION---- The testing method is an electrochemilum inescence assay manufactured by [employer] and performed on the Josue system. [...] P.A.-C. LAB BLOOD ADD-ON Performing Organization Address City/[facility]/ZIP Code Phon e Number [facility] - [address] [place], [place] [address] [place] [id number] [facility] 200 [facility] Cortisol (06/26/2022 7:44 AM CDT) athologist Signature Cortisol AM 11 7 - 25 06/26/2022 DTL Result mcg/dL 9:51 AM CDT Specimen Anatomical Collection Method Collection Time Receive d Time (Source) Location / / Volume Laterality Blood (Blood, 06/26/2022 7:44 AM 06/26/20 22 8:19 Venous) CDT AM CDT Corinne Coley P.A.-C. LAB BLOOD ADD-ON Performing Organization Address City/[facility] [[email or web address]] Code Phon e Number [facility] - [address] [place], [place] [address] [place] [id number] S-TSH (Thyroid-Stimulating Hormone - Sensitive) (06/26/2022 [...] Organization Address City/State/ZIP Code Phon e Number [facility] - [address] [place], [place] [address] [place] [address] T4 (Thyroxine), Free (06/26/2022 7:44 AM CDT) athologist Signature T4 (Thyroxine), 1.2 0.9 - 1.7 06/26/2022 DTL Free, S ng/dL 8:53 AM CDT Specimen Anatomical Collection Method Collection Time Receive d Time (Source) Location / / Volume Laterality Blood (Blood, 06/26/2022 7:44 AM 06/26/20 22 8:19 Venous) CDT AM CDT Corinne Coley P.A.-C. LAB BLOOD ADD-ON Performing Organization Address City/[facility] Phon e Number [facility] - [address] [place] [address] [address] Sodium (06/26/2022 7:44 AM CDT) P athologist Signature Sodium, S 142 135 - 145 06/26/2022 8:53 DTL mmol/L AM CDT Specimen Anatomical Collection Method Collection Time Receive d Time (Source) Location / / Volume Laterality Blood (Blood, 06/26/2022 7:44 AM 06/26/20 22 8:19 Venous) CDT AM CDT Corinne Mata-CCamilo LAB BLOOD ADD-ON Performing Organization Address City/[facility] Phon e Number [facility] - [address] documented in this encounter Visit Diagnoses Diagnosis Adenoma Pituitary Nonfunctioning (HCC) - Primary Osteopenia Osteoporosis Without Pathological Fractu re Adenoma Pituitary Nonfunctioning (HCC) Osteoporosis Without Pathological Fractu re Osteopenia documented in this encounter Care Teams Almond Grinder Relationship Specialty Start Date End Date Darryl Stallings M.B.B.S., MRosa. PCP - General Family Medicine 06/10/[address] [place] [address] [place] [address] documented as of this encounter
--- OUTSIDE RECORDS SUMMARY | 2022-08-04 08:19 | XMS_ITS | Encounter Summary ---
:1955 Author Organization [facility] Address [address] [place] [address] Care Team Providers Name Role Phone Darryl Stallings M.D. Primary Care Provider [phone] Reason for Referral Outpatient (Routine) - Closed Specialty Diagnoses / Procedures Referred By Contact Refer red To Contact Diagnoses Density Breast Cancer Breast Personal History Mague Silva M.D. 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 [facility] Procedures NM Molecular Breast Imaging [address] [place] [address] Referral ID Status Reason Start Date Expiration Date Visits Requ ested Visits Authorized [id number] Closed 12/05/2019 12/04/2020 6 6 Encounter Details Date Type Department Care Team Description 12/19/2019 Hospital Encounter Department of Mague Silva Breast; Radiology ruiz Lockwood M.D. Cancer Breast Personal History [place], [address] [place], [place] 200 [facility] [address] [place], [place] [phone] (Work) [phone] Social History Tobacco Use Types Packs/Day Years [...] or relatives? How often do you attend protestant or christian More than 4 time s per year 04/19/2022 services? Do you belong to any clubs or organizations Yes 04/19/2022 such as protestant groups, unions, fraternal or athletic groups, or [...] Diagnosis NM MBI BREAST RAD - Routine 12/19/2019 11:20 Density Breast Results for this STUDY (most inpatients AM BOX PRINTING MACHINE OPERATOR Cancer Breast procedure are in and all Personal History the results outpatients) section. documented in this encounter Results (ABNORMAL) NM Molecular Breast Imaging (12/19/2019 11:20 AM BOX PRINTING MACHINE OPERATOR) Anatomical Region Laterality Modality Breast, Nuclear Medicine RST LOS, Breast Imaging ARZ LOS, N/ A Nuclear Medicine Breast Imaging FLA LOS, Nuclear Medicine Specimen (Source) Anatomical Collection Method Collection Time Re ceived Time Location / / Volume Laterality 12/19/2019 11:32 AM BOX PRINTING MACHINE OPERATOR Impressions 12/19/2019 11:35 AM BOX PRINTING MACHINE OPERATOR Probably benign uptake in the left superior breast. RECOMMENDATION: ??Individualized Recomme ndation Additional diagnostic workup including s pot mammography and targeted ultrasound of the left superior breast. If no corre late is seen, recommend 6 month follow-up MBI. ASSESSMENT: ??BI-RADS: 3: Probably Benig n. Narrative 12/19/2019 11:35 AM BOX PRINTING MACHINE OPERATOR EXAM: ??NM MOLECULAR BREAST IMAGING INDICATION: ??Dense [...] but is likely related to background uptake. Mague GODFREY MS PROCEDURES documented in this encounter Visit Diagnoses Diagnosis Density Breast Cancer Breast Personal History documented in this encounter Administered Medications Inactive Administered Medications - up to 3 most recent administrations Medication Order MAR Action Action Date Dose Rate Site technetium Tc 99m Given 12/19/2019 10:27 8.5 millicuries Left Antecubital sestamibi injection AM BOX PRINTING MACHINE OPERATOR (MBI) (Tc-99m SESTAMIBI) 8.5 millicurie, intravenous, Once, On Wed12/19/19 at 1045, For 1 dose documented in this encounter Care Teams Chief Medical Technologist Relationship Specialty Start Date End Date Darryl Stallings M.B.B.S., M.D. PCP - General Family Medicine 06/10/[address] [place] [phone] documented as of this encounter
--- OUTSIDE RECORDS SUMMARY | 2022-08-04 08:19 | XMS_ITS | Encounter Summary ---
:1955 Author Organization [facility] Address [address] [place] [address] Care Team Providers Name Role Phone Darryl Stallings M.D. Primary Care Provider +1 [phone] Reason for Referral Outpatient (Routine) - Closed Specialty Diagnoses / Procedures Referred By Contact Refer red To Contact Radiology Diagnoses Osteopenia Corinne Coley, Procedures BMD Bone Density Spine Hips BMD BONE DENSITY SPINE HIPS MS DEXA BONE DENSITY [facility]IAL [facility] XR DEXA AXIAL SKLTN P.A.-C. [address] [place], [place] [phone] Referral ID Status Reason Start Date Expiration Date Visits Requ ested Visits Authorized [id number] Closed 06/29/2018 06/29/2019 1 1 Reason for Visit Outpatient (Routine) - Closed Specialty Diagnoses / Procedures Referred By Contact Refer red To Contact Radiology Diagnoses Osteopenia Corinne Coley, Procedures BMD Bone Density Spine Hips BMD BONE DENSITY SPINE HIPS MS DEXA BONE DENSITY AXIAL FOUNDATION HC XR DEXA AXIAL SKLTN P.A.-C. [address] [place] [phone] Referral ID Status Reason Start Date Expiration Date Visits Requ ested Visits Authorized [id number] Closed 06/29/2018 06/29/2019 1 1 Encounter Details Date Type Department Care Team Description 07/02/2020 Hospital Encounter Department of Corinne Coley O steopenia Radiology, Martínez Irby [facility], in [place], [facility] [address] [place], [place] [address] [facility] [address] [place], [place] [phone] (Wo rk) [phone] Social History Tobacco Use Types Packs/Day Years [...] or relatives? How often do you attend adventism or uatsdin More than 4 time s per year 04/19/2022 services? Do you belong to any clubs or organizations Yes 04/19/2022 such as adventism groups, unions, fraternal or athletic groups, or [...] the highest level of school Associate degree: [employer] program 06/27/2020 you have completed or the [...] Diagnosis BMD BONE DENSITY RAD - Routine 07/02/2020 10:42 Osteopenia Result s for this SPINE HIPS (most inpatients AM CDT procedure a re in and all the results outpatients) section. documented in this encounter Results BMD Bone Density Spine Hips (07/02/2020 10:42 AM CDT) Anatomical Region Laterality Modality Hip, Lumbar Spine, Nuclear Medicine RST LOS, N/A Radiographic Imaging Musculoskeletal ARZ LOS, Muskuloskeletal FLA LOS Specimen (Source) Anatomical Collection Method Collection Time Re ceived Time Location / / Volume Laterality 07/02/2020 12:45 PM CDT Impressions 07/02/2020 12:45 PM CDT Osteopenia Narrative 07/02/2020 12:45 PM CDT EXAM: ??BMD BONE DENSITY SPINE HIPS COMPARISON: Serial Comparisons Left Total Hip results: ?11/24/2010 ?BMD: ??0.820 g/cm( sq), T Score: -1.5 ?01/13/2012 ?BMD: ??0.814 g/cm( sq), T Score: -1.6 ?01/16/2013 ?BMD: ??0.836 g/cm( sq), T Score: -1.4 ?02/11/2015 ?BMD: ??0.797 g/cm( sq), T Score: -1.7 ?06/30/2016 ?BMD: ??0.773 g/cm( sq), T Score: -1.9 ?06/21/2018 ?BMD: ??0.754 g/cm( sq), T Score: -2.0 ?07/02/2020 ?BMD: ??0.748 g/cm( sq), T Score: -2.1 ?Change vs. Previous (difference): ? -0.006 g/cm(sq) ?Change vs. Previous (%): ??-0.8% ?The least significant change in BM D for the Total Hip ?is 0.036 g/cm(sq) ?The absolute BMD change from previ ous, ??0.006g/cm(sq), is ?less than the least significant ch jesus alberto. ?The absolute BMD change from basel ine, ??0.071g/cm(sq), is ?greater than the least significant change. Right Total Hip results: ?11/24/2010 ?BMD: ??0.860 g/cm( sq), T Score: -1.2 ?01/13/2012 ?BMD: ??0.860 g/cm( sq), T Score: -1.2 ?01/16/2013 ?BMD: ??0.854 g/cm( sq), T Score: -1.2 ?02/11/2015 ?BMD: ??0.837 g/cm( sq), T Score: -1.4 ?06/30/2016 ?BMD: ??0.817 g/cm( sq), T Score: -1.5 ?06/21/2018 ?BMD: ??0.811 g/cm( sq), T Score: -1.6 ?07/02/2020 ?BMD: ??0.801 g/cm( sq), T Score: -1.6 ?Change vs. Previous (difference): ? -0.010 g/cm(sq) ?Change vs. Previous (%): ??-1.2% ?The least significant change in BM D for the Total Hip ?is 0.036 g/cm(sq) ?The absolute BMD change from previ ous, ??0.010g/cm(sq), is ?less than the least significant ch jesus alberto. ?The absolute BMD change from basel ine, ??0.058g/cm(sq), is ?greater than the least significant change. Combined Total Hip results: ?11/24/2010 ?BMD: ??0.840 g/cm( sq), T Score: -1.3 ?01/13/2012 ?BMD: ??0.837 g/cm( sq), T Score: -1.4 ?01/16/2013 ?BMD: ??0.845 g/cm( sq), T Score: -1.3 ?02/11/2015 ?BMD: ??0.817 g/cm( sq), T Score: -1.6 ?06/30/2016 ?BMD: ??0.795 g/cm( sq), T Score: -1.7 ?06/21/2018 ?BMD: ??0.783 g/cm( sq), T Score: -1.8 ?07/02/2020 ?BMD: ??0.775 g/cm( sq), T Score: -1.9 ?Change vs. Previous (difference): ? -0.008 g/cm(sq) ?Change vs. Previous (%): ??-1.0% ?The least significant change in BM D for the Total Hip ?is 0.036 g/cm(sq) ?The absolute BMD change from previ ous, ??0.008g/cm(sq), is ?less than the least significant ch jesus alberto. ?The absolute BMD change from basel ine, ??0.065g/cm(sq), is ?greater than the least significant change. Spine results: ?11/24/2010 ?BMD: ??0.951 g/cm( sq), T Score: -2.0 ?01/13/2012 ?BMD: ??0.960 g/cm( sq), T Score: -1.9 ?01/16/2013 ?BMD: ??0.961 g/cm( sq), T Score: -1.9 ?02/11/2015 ?BMD: ??0.932 g/cm( sq), T Score: -2.1 ?06/30/2016 ?BMD: ??0.912 g/cm( sq), T Score: -2.3 ?06/21/2018 ?BMD: ??0.911 g/cm( sq), T Score: -2.3 ?07/02/2020 ?BMD: ??0.928 g/cm( sq), T Score: -2.2 ?Change vs. Previous (difference): ?0.017 g/cm(sq) ?Change vs. Previous (%): ??1.9% ?The least significant change in BM D for the Spine is 0.041 g/cm(sq) ?The absolute BMD change from previ ous, ??0.017g/cm(sq), is ?less than the least significant ch jesus alberto. ?The absolute BMD change from basel ine, ??0.022g/cm(sq), is ?less than the least significant ch jesus alberto. FINDINGS: Left Hip [single scan]: ?Femur Neck: BMD = ??0.756 g/cm (sq ) ?T-score = -2.0 ?Z-score = - 0.5 ?Total Hip: BMD = ??0.748 g/cm (sq) ?T-score = -2.1 ?Z-score = - 0.8 Right Hip [single scan]: ?Femur Neck: BMD = ??0.837 g/cm (sq ) ?T-score = -1.4 ?Z-score = ? ?0.0 ?Total Hip: BMD = ??0.801 g/cm (sq) ?T-score = -1.6 ?Z-score = - 0.4 Lumbar Spine ??[single scan]: ?L1: BMD = 0.907 g/cm (sq), T-score =-1.9, Z-score =-0.2 ?L2: BMD = 0.883 g/cm (sq), T-score =-2.7, Z-score =-1.0 ?L3: BMD = 0.960 g/cm (sq), T-score =-2.1, Z-score =-0.3 ?L4: BMD = 0.953 g/cm (sq), T-score =-2.1, Z-score =-0.3 ?Total Lumbar Spine: BMD = ??0.928 g/cm (sq) ?T-score = -2.2 ?Z-score = - 0.4 Trabecular Bone Scores: ?L1-L4: TBS = 1.312 Please note: A more comprehensive DXA re port, including images and graphs, is available in [employer]. ?In the absence of other causes of low BMD or demonstrated skeletal ?fragility, osteoporosis may be hermilo gnosed in post-menopausal ? women when the T-score i s at or below -2.5 as defined by ?the WHO. Osteopenia is present at T-scores between -1 and -2.5 and ?normal BMD when T-score is at or a wendie -1.0. The diagnosis in ?pre-menopausal women and men can b e based on low bone mass or ?evidence of skeletal fragility in the appropriate clinical setting. Based on the bone density results, and o n the patient's answers to the Fracture Risk Assessment questionnaire (please refer to appropria te image stored in the BMD study in QREADS), the calculated ten year probability of fracture is: FRAX Score Major Osteoporotic: 9.7% Hip Fracture: ? 1.7% Degenerative changes are present which m ay spuriously elevate the spine BMD measurement. Procedure Note Betty Senior M.D. - 07/02/2020Form atting of this note might be different from the original. EXAM: BMD BONE DENSITY SPINE HIPS COMPARISON: Serial Comparisons Left Total Hip results: 11/24/2010 BMD: 0.820 g/cm(sq), T Score : -1.5 01/13/2012 BMD: 0.814 g/cm(sq), T Score : -1.6 01/16/2013 BMD: 0.836 g/cm(sq), T Score : -1.4 02/11/2015 BMD: 0.797 g/cm(sq), T Score : -1.7 06/30/2016 BMD: 0.773 g/cm(sq), T Score : -1.9 06/21/2018 BMD: 0.754 g/cm(sq), T Score : -2.0 07/02/2020 BMD: 0.748 g/cm(sq), T Score : -2.1 Change vs. Previous (difference): -0.00 6 g/cm(sq) Change vs. Previous (%): -0.8% The least significant change in BMD for the Total Hip is 0.036 g/cm(sq) The absolute BMD change from previous, 0.006g/cm(sq), is less than the least significant change. The absolute BMD change from baseline, 0.071g/cm(sq), is greater than the least significant méndez ge. Right Total Hip results: 11/24/2010 BMD: 0.860 g/cm(sq), T Score : -1.2 01/13/2012 BMD: 0.860 g/cm(sq), T Score : -1.2 01/16/2013 BMD: 0.854 g/cm(sq), T Score : -1.2 02/11/2015 BMD: 0.837 g/cm(sq), T Score : -1.4 06/30/2016 BMD: 0.817 g/cm(sq), T Score : -1.5 06/21/2018 BMD: 0.811 g/cm(sq), T Score : -1.6 07/02/2020 BMD: 0.801 g/cm(sq), T Score : -1.6 Change vs. Previous (difference): -0.01 0 g/cm(sq) Change vs. Previous (%): -1.2% The least significant change in BMD for the Total Hip is 0.036 g/cm(sq) The absolute BMD change from previous, 0.010g/cm(sq), is less than the least significant change. The absolute BMD change from baseline, 0.058g/cm(sq), is greater than the least significant méndez ge. Combined Total Hip results: 11/24/2010 BMD: 0.840 g/cm(sq), T Score : -1.3 01/13/2012 BMD: 0.837 g/cm(sq), T Score : -1.4 01/16/2013 BMD: 0.845 g/cm(sq), T Score : -1.3 02/11/2015 BMD: 0.817 g/cm(sq), T Score : -1.6 06/30/2016 BMD: 0.795 g/cm(sq), T Score : -1.7 06/21/2018 BMD: 0.783 g/cm(sq), T Score : -1.8 07/02/2020 BMD: 0.775 g/cm(sq), T Score : -1.9 Change vs. Previous (difference): -0.00 8 g/cm(sq) Change vs. Previous (%): -1.0% The least significant change in BMD for the Total Hip is 0.036 g/cm(sq) The absolute BMD change from previous, 0.008g/cm(sq), is less than the least significant change. The absolute BMD change from baseline, 0.065g/cm(sq), is greater than the least significant méndez ge. Spine results: 11/24/2010 BMD: 0.951 g/cm(sq), T Score : -2.0 01/13/2012 BMD: 0.960 g/cm(sq), T Score : -1.9 01/16/2013 BMD: 0.961 g/cm(sq), T Score : -1.9 02/11/2015 BMD: 0.932 g/cm(sq), T Score : -2.1 06/30/2016 BMD: 0.912 g/cm(sq), T Score : -2.3 06/21/2018 BMD: 0.911 g/cm(sq), T Score : -2.3 07/02/2020 BMD: 0.928 g/cm(sq), T Score : -2.2 Change vs. Previous (difference): 0.017 g/cm(sq) Change vs. Previous (%): 1.9% The least significant change in BMD for the Spine is 0.041 g/cm(sq) The absolute BMD change from previous, 0.017g/cm(sq), is less than the least significant change. The absolute BMD change from baseline, 0.022g/cm(sq), is less than the least significant change. FINDINGS: Left Hip [single scan]: Femur Neck: BMD = 0.756 g/cm (sq) T-score = -2.0 Z-score = -0.5 Total Hip: BMD = 0.748 g/cm (sq) T-score = -2.1 Z-score = -0.8 Right Hip [single scan]: Femur Neck: BMD = 0.837 g/cm (sq) T-score = -1.4 Z-score = 0.0 Total Hip: BMD = 0.801 g/cm (sq) T-score = -1.6 Z-score = -0.4 Lumbar Spine [single scan]: L1: BMD = 0.907 g/cm (sq), T-score =-1. 9, Z-score =-0.2 L2: BMD = 0.883 g/cm (sq), T-score =-2. 7, Z-score =-1.0 L3: BMD = 0.960 g/cm (sq), T-score =-2. 1, Z-score =-0.3 L4: BMD = 0.953 g/cm (sq), T-score =-2. 1, Z-score =-0.3 Total Lumbar Spine: BMD = 0.928 g/cm (s q) T-score = -2.2 Z-score = -0.4 Trabecular Bone Scores: L1-L4: TBS = 1.312 Please note: A more comprehensive DXA re port, including images and graphs, is available in [employer]. In the absence of other causes of low B MD or demonstrated skeletal fragility, osteoporosis may be diagnose d in post-menopausal women when the T-score is at or below -2.5 as defined by the WHO. Osteopenia is present at T-sco res between -1 and -2.5 and normal BMD when T-score is at or above -1.0. The diagnosis in pre-menopausal women and men can be bas ed on low bone mass or evidence of skeletal fragility in the [facility]. Based on the bone density results, and o n the patient's answers to the Fracture Risk Assessment questionnaire (please refer to appropria te image stored in the BMD study in QREADS), the calculated ten year probability of fracture is: FRAX Score Major Osteoporotic: 9.7% Hip Fracture: 1.7% Degenerative changes are present which m ay spuriously elevate the spine BMD measurement. IMPRESSION: Osteopenia Corinne Coley P.A.-C. IMG DXA PROCEDURES documented in this encounter Visit Diagnoses Diagnosis Osteopenia documented in this encounter Care Teams Field Pipe Lines Supervisor Relationship Specialty Start Date End Date Darryl Stallings M.B.B.S., M.D. PCP - General Family Medicine 06/10/[address] [place] [address] [place] [phone] documented as of this encounter
--- OUTSIDE RECORDS SUMMARY | 2022-08-04 08:19 | XMS_ITS | Encounter Summary ---
:1955 Author Organization [facility] Address [address] [place] [address] Care Team Providers Name Role Phone Darryl Stallings M.D. Primary Care Provider +1 [phone] Reason for Referral Outpatient (Routine) - Closed Specialty Diagnoses / Procedures Referred By Contact Refer red To Contact Diagnoses Other Abnormal And Inconclusive Findings On Diagnostic Imaging Of Breast Density Breast Mague Silva M.D. [facility] Procedures NM Molecular Breast Imaging [address] [place] [phone] Referral ID Status Reason Start Date Expiration Date Visits Requ ested Visits Authorized Closed 05/20/2020 05/20/2021 6 6 Reason for Visit Outpatient (Routine) - Closed Specialty Diagnoses / Procedures Referred By Contact Refer red To Contact Diagnoses Other Abnormal And Inconclusive Findings On Diagnostic Imaging Of Breast Density Breast Mague Silva M.D. [facility] Procedures NM Molecular Breast Imaging [address] [place] [phone] Referral ID Status Reason Start Date Expiration Date Visits Requ ested Visits Authorized Closed 05/20/2020 05/20/2021 6 6 Encounter Details Date Type Department Care Team Description 07/02/2020 Hospital Encounter Department of Smita Silva normal And Inconclusive Findings On Diagnostic Imaging Of Breast; Radiology in Donovan Galvez Density Breast [place], [facility] [address] [place], [place] [address] [place] [address] [place], [place] [phone] (Work) [phone] Social History Tobacco Use Types Packs/Day Years [...] or relatives? How often do you attend druze or quaker More than 4 time s per year 04/19/2022 services? Do you belong to any clubs or organizations Yes 04/19/2022 such as druze groups, unions, fraternal or athletic groups, or [...] the highest level of school Associate degree: [employer] program 06/27/2020 you have completed or the [...] Diagnosis NM MBI BREAST RAD - Routine 07/02/2020 11:31 Other Abnormal And Res ults for this STUDY (most inpatients AM CDT Inconclusive procedure a re in and all Findings On the results outpatients) Diagnostic Imaging section. Of Breast Density Breast documented in this encounter Results NM Molecular Breast Imaging (07/02/2020 11:31 AM CDT) Anatomical Region Laterality Modality Breast, Nuclear Medicine RST LOS, Breast Imaging ARZ LOS, N/ A Nuclear Medicine Breast Imaging FLA LOS, Nuclear Medicine Specimen (Source) Anatomical Collection Method Collection Time Re ceived Time Location / / Volume Laterality 07/02/2020 12:35 PM CDT Impressions 07/02/2020 12:39 PM CDT No MBI findings of malignancy. RECOMMENDATION: ??Annual Screening Mammo gram ASSESSMENT: ??BI-RADS: 2: Benign. Narrative 07/02/2020 12:39 PM CDT EXAM: ??NM MOLECULAR BREAST IMAGING INDICATION: ??Dense breast tissue HORMONAL STATUS: ??Postmenopausal. COMPARISON: ??12/19/2019 and 05/11/2017 MBI TECHNIQUE: ??Bilateral CC and MLO views obtained on a dual-head CZT gamma camera after radiotracer injection. ?? RADIOISOTOPE DOSE: ?? Route: intravenous technetium Tc 99m sestamibi injection (M BI) (Tc-99m SESTAMIBI),8.7 millicurie BACKGROUND UPTAKE INTENSITY: ??b. Minima l/Mild FINDINGS: ?? RIGHT BREAST: ??No abnormal radiotracer uptake in the right breast. LEFT BREAST: ??No abnormal radiotracer u ptake in the left breast. The questionable asymmetry in the left breas t only on MLO view on the 12/19/2019 scan is not as apparent. Procedure Note Apolinar Garrett M.D. - 07/02/2020For matting of this note might be different from the original. EXAM: NM MOLECULAR BREAST IMAGING INDICATION: Dense breast tissue HORMONAL STATUS: Postmenopausal. COMPARISON: 12/19/2019 and 05/11/2017 MBI TECHNIQUE: Bilateral CC and MLO views ob tained on a dual-head CZT gamma camera after radiotracer injection. RADIOISOTOPE DOSE: Route: intravenous technetium Tc 99m sestamibi injection (M BI) (Tc-99m SESTAMIBI),8.7 millicurie BACKGROUND UPTAKE INTENSITY: b. Minimal/ Mild FINDINGS: RIGHT BREAST: No abnormal radiotracer up take in the right breast. LEFT BREAST: No abnormal radiotracer upt esa in the left breast. The questionable asymmetry in the left breas t only on MLO view on the 12/19/2019 scan is not as apparent. IMPRESSION: No MBI findings of malignancy. RECOMMENDATION: Annual Screening Mammogr am ASSESSMENT: BI-RADS: 2: Benign. Mague [facility] PROCEDURES documented in this encounter Visit Diagnoses Diagnosis Other Abnormal And Inconclusive Findings On Diagnostic Imaging Of Breast Density Breast documented in this encounter Administered Medications Inactive Administered Medications - up to 3 most recent administrations Medication Order MAR Action Action Date Dose Rate Site technetium Tc 99m Given 07/02/2020 10:41 AM 8.7 millicuries sestamibi injection (MBI) CDT (Tc-99m SESTAMIBI) 8.7 millicurie, intravenous, Once, On Wed07/02/20 at 1100, For 1 dose documented in this encounter Care Teams Nonprofit Director Relationship Specialty Start Date End Date Darryl Stallings M.B.BCamiloS., MRosa. PCP - General Family Medicine 06/10/[address] [place] [phone] documented as of this encounter
--- OUTSIDE RECORDS SUMMARY | 2022-08-04 08:19 | XMS_ITS | Encounter Summary ---
:1955 Author Organization [facility] Address [address] [place] [address] Care Team Providers Name Role Phone Darryl Stallings M.D. Primary Care Provider [phone] [phone] Encounter Details Date Type Department Care Team Description 12/27/2019 Hospital Encounter Department of Mague Silva Examination Radiology in L, MDean Abnormal Model, [address] [place] [address] [place] [phone] [place], [place] [phone] (Work) [phone] Social History Tobacco Use Types Packs/Day Years [...] or relatives? How often do you attend scientologist or tenriism More than 4 time s per year 04/19/2022 services? Do you belong to any clubs or organizations Yes 04/19/2022 such as scientologist groups, unions, fraternal or athletic groups, or [...] place to sleep or slept in a chcf (including now)? Education Answer Date Recorded What [...] Name Priority Date/Time Associated Comments Diagnosis BI ULTRASOUND RAD - Routine 12/27/2019 10:38 Breast Examination Res ults for this BREAST FOCUSED (most inpatients AM CDT Abnormal procedure are in LEFT and all the results outpatients) section. documented in this encounter Results BI Ultrasound Breast Focused Left (12/27/2019 10:38 AM CDT) Anatomical Region Laterality Modality Breast, Breast Imaging RST LOS, Breast Imaging ARZ LOS, [address] st Left Ultrasound Imaging FLA LOS Specimen (Source) Anatomical Collection Method Collection Time Re ceived Time Location / / Volume Laterality 12/27/2019 10:42 AM CDT Impressions 12/27/2019 10:57 AM CDT No mammographic or sonographic findings of malignancy. No specific mammographic or ultrasound findings to a ccount for low level uptake demonstrated on comparison MBI examination, suggestin g that uptake is related to background. RECOMMENDATION: ??Individualized Recomme ndation Interval follow-up MBI examination is re commended in 6 months according to MBI report 12/19/2019. Please see that repor t for additional details. Findings, impressions and recommendations discusse d with the patient following imaging. All questions answered. ASSESSMENT: ??BI-RADS: 2: Benign. Narrative 12/27/2019 10:57 AM CDT EXAM: ??BI BREAST DIAGNOSTIC LEFT WITH TOMOSYNTHESIS, BI ULTRASOUND BREAST FOCUSED LEFT INDICATION: ??Low level uptake in the le ft breast on molecular breast imaging examination. COMPARISON: ??Bilateral MBI 12/19/2019. DENSITY: ??c. The breast(s) are heteroge neously dense, which may obscure small masses. FINDINGS: ??No significant masses, calci fications or architectural distortion demonstrated in the left breast on diagn ostic full field and spot tomosynthesis evaluation of the left breast. No specif ic findings to account for low level uptake demonstrated on comparison MBI ex amination. Targeted sonographic evaluation of the u pper outer left breast, centered in the 1-3 o'clock positions at 5 cm the nipple confirms normal fibroglandular tissue without abnormality. No specific finding s to account for low level uptake demonstrated on comparison MBI examinati on. Mague GODFREY BI PROCEDURES documented in this encounter Visit Diagnoses Diagnosis Breast Examination Abnormal documented in this encounter Care Teams Order Tracer Relationship Specialty Start Date End Date Darryl Stallings M.B.B.S., M.D. PCP - General Family Medicine 06/10/[address] [place] [phone] documented as of this encounter
--- OUTSIDE RECORDS SUMMARY | 2022-08-04 08:19 | XMS_ITS | Encounter Summary ---
:1955 Author Organization [facility] Address [address] [place] [address] Care Team Providers Name Role Phone Darryl Stallings M.D. Primary Care Provider +[phone] Reason for Referral Outpatient (Routine) - Closed Specialty Diagnoses / Procedures Referred By Contact Refer red To Contact Diagnoses Other Abnormal And Inconclusive Findings On Diagnostic Imaging Of Breast Density Breast Mague Silva M.D. [facility] Procedures NM Molecular Breast Imaging [address] [place] [phone] Referral ID Status Reason Start Date Expiration Date Visits Requ ested Visits Authorized [id number] Closed 05/20/2020 05/20/2021 6 6 Reason for Visit Reason Comments Follow-up Encounter Details Date Type Department Care Team Description 05/07/2020 Clinical Communication Breast Diagnostic Shy Silva [facility] in Fabián Kothari M.D. [place] [address] [place] [address] [address] [place] [phone] Social History Tobacco Use Types Packs/Day Years [...] or relatives? How often do you attend rastafari or pentecostal More than 4 time s per year 04/19/2022 services? Do you belong to any clubs or organizations Yes 04/19/2022 such as rastafari groups, unions, fraternal or athletic groups, or [...] this encounter Miscellaneous Notes Telephone Encounter - Davida Ceballos - 05/07/2020 4:24 PM CDT Patient called stating she needed to be seen in July for her testing and recheck. It looks like she was just seen in November and I don't see where you wanted to see her back in July. Please adviseDavida documented in this encounter Plan of Treatment Not on filedocumented as of this encounter Results NM Molecular Breast Imaging (07/02/2020 11:31 AM CDT) Anatomical Region Laterality Modality Breast, Nuclear Medicine RST LOS, Breast Imaging ARVeronica NIELSEN, N/ A Nuclear Medicine Breast Imaging FLA GIA, Nuclear Medicine Specimen (Source) Anatomical Collection Method [...] Benign. Mague Silva M.D. IMG NM PROCEDURES documented in this encounter Visit Diagnoses Diagnosis Other Abnormal And Inconclusive Findings On Diagnostic Imaging Of Breast - Primary Density Breast Other Abnormal And Inconclusive Findings On Diagnostic Imaging Of Breast Density Breast documented in this encounter Care Teams Title Searcher Relationship Specialty Start Date End Date Darryl Stallings M.B.B.S., M.D. PCP - General Family Medicine 06/10/[address] [place] [phone] documented as of this encounter
--- OUTSIDE RECORDS SUMMARY | 2022-08-04 08:19 | XMS_ITS | Encounter Summary ---
:1955 Author Organization [facility] Address [address] [place] [address] Care Team Providers Name Role Phone Darryl Stallings M.D. Primary Care Provider +1 [phone] Encounter Details Date Type Department Care Team Description 09/20/2018 Orders Only Department of [place], [place] [facility], [address] [facility] [place] [address] [place] [address] [place] [address] Social History Tobacco Use Types Packs/Day Years [...] How often do you attend adventist or sabianist More than 4 time s per year [...] place to sleep or slept in a penitentiary (including now)? Sex Assigned at Date Recorded Female 06/28/2018 6:37 PM CDT documented as of this encounter Plan of Treatment Not on filedocumented as of this encounter Visit Diagnoses Not on filedocumented in this encounter Care Teams Wedger Machine Relationship Specialty Start Date End Date Darryl Stallings M.B.B.S., M.D. PCP - General Family Medicine 06/10/[address] [place] [address] [place] [phone] documented as of this encounter
--- OUTSIDE RECORDS SUMMARY | 2022-08-04 08:19 | XMS_ITS | Encounter Summary ---
:1955 Author Organization [facility] Address [address] [place] [address] Care Team Providers Name Role Phone Darryl Stallings M.D. Primary Care Provider +[phone] Encounter Details Date Type Department Care Team Description 07/02/2020 Hospital Encounter Department of [place], Adenoma Pituitary Nonfunctioning (HCC); Laboratory Medicine Tristin Lima and Pathology, P.ACamilo-CCamilo [facility] in [address] [place] [phone] [place] [address] [place], [place] (Work) [phone] Social History Tobacco Use Types Packs/Day Years [...] or relatives? How often do you attend faith or alevism More than 4 time s per year 04/19/2022 services? Do you belong to any clubs or organizations Yes 04/19/2022 such as faith groups, unions, fraternal or athletic groups, or [...] place to sleep or slept in a snf (including now)? Education Answer Date Recorded What is the highest level of school Associate degree: [employer] ([employer]) program 06/27/2020 you have completed or the [...] Name Priority Date/Time Associated Diagnosis Comme nts 25-HYDROXYVITAMIN Routine 07/02/2020 7:29 AM Osteopenia Resu lts for this D2 AND D3, S CDT procedure are i n the results section. PROLACTIN, S Routine 07/02/2020 7:29 AM Adenoma Pituitary Resu lts for this CDT Nonfunctioning (HCC) procedu re are in the results section. THYROID-STIMULATING Routine 07/02/2020 7:29 AM Adenoma Pituita ry Results for this HORMONE-SENSITIVE CDT Nonfunctioning (HCC) pr ocedure are in (S-TSH) the results section. T4 (THYROXINE), Routine 07/02/2020 7:29 AM Adenoma Pituitary R esults for this FREE, S CDT Nonfunctioning (HCC) procedu re are in the results section. SODIUM, S/P Routine 07/02/2020 7:29 AM Adenoma Pituitary Resu lts for this CDT Nonfunctioning (HCC) procedu re are in the results section. CREATININE WITH Routine 07/02/2020 7:29 AM Adenoma Pituitary R esults for this EGFR, S/P CDT Nonfunctioning (HCC) procedu re are in the results section. CORTISOL, S Routine 07/02/2020 7:29 AM Adenoma Pituitary Resu lts for this CDT Nonfunctioning (HCC) procedu re are in the results section. documented in this encounter Results 25-Hydroxyvitamin D2 and D3 (07/02/2020 7:29 AM CDT) athologist Signature 25-Hydroxy D2 <4.0 ng/mL 07/03/2020 SDSC 5:16 AM CDT 25-Hydroxy D3 47 ng/mL 07/03/2020 SDSC 5:16 AM CDT 25-Hydroxy D 47 ng/mL 07/03/2020 SDS Total 5:16 AM CDT Comment: ----REFERENCE VALUE---- 25-HYDROXY D TOTAL (D2+D3) Optimum level s in the healthy population are 20-50, patients with bone disease may benefit from higher levels within this r jesus alberto. ----ADDITIONAL INFORMATION---- This test was developed and its performa nce characteristics determined by [facility] in a manner consistent with CLIA requirements. This test has not been cleared or approved by the U.[place]. Christ[place] d and Drug Administration. Specimen Anatomical Collection Method Collection Time Receive d Time (Source) Location / / Volume Laterality Blood (Blood, 07/02/2020 7:29 AM 07/02/20 20 Venous) CDT 10:31 AM CDT Corinne Coley P.A.-C. LAB BLOOD ADD-ON Performing Organization Address City/State/ZIP Code Phon e Number [facility] [address] [place] [address] [facility] [place] [address] Laboratory Medicine and Pathology [address] RYAN Prolactin (07/02/2020 7:29 AM CDT) athologist Signature Prolactin Total 9.6 4.8 - 23.3 07/02/2020 DTL ng/mL 8:50 AM CDT Comment: ----ADDITIONAL INFORMATION---- The testing method is an electrochemilum inescence assay manufactured by [employer] and performed on the Josue system. Values obtained with different assay met hods or kits may be different and cannot be used inte rchangeably. Test results cannot be interpreted as ab solute evidence for the presence or absence of malignant disease. Specimen Anatomical Collection Method Collection Time Receive d Time (Source) Location / / Volume Laterality Blood (Blood, 07/02/2020 7:29 AM 07/02/20 8:11 Venous) CDT AM CDT Corinne Coley P.A.-C. LAB BLOOD ADD-ON Performing Organization Address [facility] Phon e Number [facility] - [address] S-TSH (Thyroid-Stimulating Hormone - Sensitive) (07/02/2020 7:29 AM CDT) athologist Signature TSH, Sensitive 1.1 0.3 - 4.2 07/02/2020 DTL mIU/L 8:58 AM CDT Specimen Anatomical Collection Method Collection Time Receive d Time (Source) Location / / Volume Laterality Blood (Blood, 07/02/2020 7:29 AM 07/02/20 8:11 Venous) CDT AM CDT Corinne Coley P.A.-C. LAB BLOOD ADD-ON Performing Organization Address [facility] Phon e Number [facility] - [address] T4 (Thyroxine), Free (07/02/2020 7:29 AM CDT) P athologist Signature T4 (Thyroxine), 1.3 0.9 - 1.7 07/02/2020 DTL Free, S ng/dL 8:50 AM CDT Specimen Anatomical Collection Method Collection Time Receive d Time (Source) Location / / Volume Laterality Blood (Blood, 07/02/2020 7:29 AM 09/15/20 20 8:11 Venous) CDT AM CDT Corinne Coley P.A.-C. LAB BLOOD ADD-ON Performing Organization Address City/[facility]/ZIP Code Phon e Number [facility] - 200 [place] [phone] [address] Sodium (07/02/2020 7:29 AM CDT) athologist Signature Sodium, S 142 135 - 145 07/02/2020 8:50 DTL mmol/L AM CDT Specimen Anatomical Collection Method Collection Time Receive d Time (Source) Location / / Volume Laterality Blood (Blood, 07/02/2020 7:29 AM 07/02/20 8:11 Venous) CDT AM CDT Corinne PostCCamilo LAB BLOOD ADD-ON Performing Organization Address City/[facility] Phon e Number [facility] - [address] Creatinine with Estimated GFR (07/02/2020 7:29 AM CDT) athologist Signature Creatinine 0.94 0.59 - 07/02/2020 DTL 1.04 mg/dL 8:50 AM CDT eGFR-Non 64 >=60 07/02/2020 DTL Black/ mL/min/BSA 8:50 AM CDT [place] Comment: ----ADDITIONAL INFORMATION---- Estimated GFR calculated using the 2009 CKD_EPI creatinine equation. eGFR-Black/ 74 >=60 mL/min/BSA 2019 8:50 AM CDT DTL Comment: ----ADDITIONAL INFORMATION---- Estimated GFR calculated using the 2009 CKD_EPI creatinine equation. Specimen Anatomical Collection Method Collection Time Receive d Time (Source) Location / / Volume Laterality Blood (Blood, 07/02/2020 7:29 AM 07/02/20 8:11 Venous) CDT AM CDT Corinne Coley P.A.-C. LAB BLOOD ADD-ON Performing Organization Address City/[facility]/ZIP [facility] Phon e Number [facility] - 200 [place] [address] [address] [place] [address] Laboratories-[facility] 200 [facility] Cortisol (07/02/2020 7:29 AM CDT) P athologist Signature Cortisol AM 13 7 - 25 07/02/2020 DTL Result mcg/dL 9:02 AM CDT Specimen Anatomical Collection Method Collection Time Receive d Time (Source) Location / / Volume Laterality Blood (Blood, 07/02/2020 7:29 AM 07/02/20 20 8:13 Venous) CDT AM CDT Corinne Coley P.A.-C. LAB BLOOD ADD-ON Performing Organization Address City/State/ZIP Code Phon e Number [facility] - [address] documented in this encounter Visit Diagnoses Diagnosis Adenoma Pituitary Nonfunctioning (HCC) Osteopenia documented in this encounter Care Teams Vp Information Technology Relationship Specialty Start Date End Date Darryl Stallings M.B.B.S., M.D. PCP - General Family Medicine 06/10/[address] [place] [phone] documented as of this encounter
--- OUTSIDE RECORDS SUMMARY | 2022-08-04 08:19 | XMS_ITS | Encounter Summary ---
:1955 Author Organization [facility] Address [address] [place] [address] Care Team Providers Name Role Phone Darryl Stallings M.D. Primary Care Provider [phone] Reason for Visit Reason Comments COVID Nurse Line Encounter Details Date Type Department Care Team Description 05/22/2020 Clinical Communication Breast Diagnostic [facility] in [place], [address] [place] [address] [place] [phone] [place], [place] [phone] (Work) [phone] Social History Tobacco Use Types Packs/Day Years [...] or relatives? How often do you attend pentecostalism or temple More than 4 time s per year 04/19/2022 services? Do you belong to any clubs or organizations Yes 04/19/2022 such as pentecostalism groups, unions, fraternal or athletic groups, or [...] this encounter Miscellaneous Notes Telephone Encounter - Justen Zhong - 05/22/2020 10:10 AM CDT ([facility] and [facility] locations only: If the patient is not having symptoms and is requesting COVID-19 Nasal Swab testing only, use the process listed in the COVID-19 Patient Requesting COVID PCR Test OTG COVID-19 [place] Patient Requesting COVID PCR Test). In the past 30 days have you had a swab for COVID that tested positive? no Route reply to: Scheduling Contact Number: documented in this encounter Plan of Treatment Not on filedocumented as of this encounter Visit Diagnoses Not on filedocumented in this encounter Care Teams Director Part Relationship Specialty Start Date End Date Darryl Stallings M.B.B.S., M.D. PCP - General Family Medicine 06/10/[address] [place] [address] [place] [phone] documented as of this encounter
--- OUTSIDE RECORDS SUMMARY | 2022-08-04 08:19 | XMS_ITS | Encounter Summary ---
:1955 Author Organization [facility] Address [address] [place] [address] Care Team Providers Name Role Phone Darryl Stallings M.D. Primary Care Provider [phone] Encounter Details Date Type Department Care Team Description 12/27/2019 Hospital Encounter Department of Mague Silva Examination Radiology in [place], M[place]an Abnormal [place], [address] [place] [address] [place] [phone] [place], [place] [phone] (Work) [phone] Social History Tobacco Use Types Packs/Day Years [...] or relatives? How often do you attend sabianism or orthodox More than 4 time s per year 04/19/2022 services? Do you belong to any clubs or organizations Yes 04/19/2022 such as sabianism groups, unions, fraternal or athletic groups, or [...] place to sleep or slept in a alf (including now)? Education Answer Date Recorded What [...] mouth daily. documented as of this encounter Miscellaneous Notes Result Encounter Note - Mague Silva M.D. - 12/27/2019 4:02 PM CDT FINAL DIAGNOSIS: #1 Personal history of breast cancer #2 Dense breast tissue #3 Abnormal MBI- no mammographic or sonographic correlate, recommend 6 month follow-up MBI BREAST CLINIC FOLLOW-UP RECOMMENDATIONS: Short-term follow-up MBI next due June 2020. Bilateral screening mammogram next due in December 2020. Clinical breast exam next due in June 2020. Breast self-awareness encouraged and the patient is advised to seek medical attention for any breastrelated concerns. documented in this encounter Plan of Treatment Not on filedocumented as of this encounter Procedures Procedure Name Priority Date/Time Associated Comments Diagnosis BI BREAST DIAGNOSTIC RAD - Routine 12/27/2019 10:11 Breast Re sults for LEFT WITH (most inpatients AM CDT Examination this proced ure TOMOSYNTHESIS and all Abnormal are in the outpatients) results section. documented in this encounter Results BI Breast Diagnostic Left with Tomosynthesis (12/27/2019 10:11 AM CDT) Anatomical Region Laterality Modality Breast, Breast Imaging RST LOS, Breast Imaging ARZ LOS, Terri st Left Mammography Imaging FLA LOS Specimen (Source) Anatomical [...] demonstrated on comparison MBI examinati on. Mague L Shira M.D. IMG BI PROCEDURES documented in this encounter Visit Diagnoses Diagnosis Breast Examination Abnormal documented in this encounter Care Teams Career Resource Technician Relationship Specialty Start Date End Date Darryl Stallings M.B.B.S., M.D. PCP - General Family Medicine 06/10/[address] [place] [phone] documented as of this encounter
--- OUTSIDE RECORDS SUMMARY | 2022-08-04 08:19 | XMS_ITS | Encounter Summary ---
:1955 Author Organization [facility] Address [address] [place] [address] Care Team Providers Name Role Phone Darryl Stallings M.D. Primary Care Provider [phone] Encounter Details Date Type Department Care Team Description 06/29/2018 Hospital Encounter Department of Pruthi, Cancer B reast Radiology in [place] Fernando Personal History [place], [place] [address] [facility] [address] [place] [phone] Social History Tobacco Use Types Packs/Day Years [...] How often do you attend temple or advent More than 4 time s per year [...] or slept in a chcf (including now)? Sex Assigned at Date Recorded [...] Diagnosis BI BREAST SCREENING RAD - Routine 06/29/2018 9:00 Cancer Breast Res ults for BILATERAL WITH (most inpatients AM CDT Personal History this procedure TOMOSYNTHESIS and all are in the outpatients) results section. documented in this encounter Results BI Breast Screening Bilateral with Tomosynthesis (06/29/2018 9:00 AM CDT) Anatomical Region Laterality Modality Breast, Breast Imaging RST LOS Bilateral Mammograp hy Specimen (Source) Anatomical Collection Method Collection Time Re ceived Time Location / / Volume Laterality 06/29/2018 9:52 AM CDT Impressions 06/29/2018 10:00 AM CDT IMPRESSION: ??Negative. RECOMMENDATION: ??Annual Screening Mammo gram ASSESSMENT: ??BI-RADS: 1: Negative. Narrative 06/29/2018 10:00 AM CDT EXAM: ??BI BREAST SCREENING BILATERAL WITH TOMOSYNTHESIS Current study was evaluated with a Compu ter Aided Detection (CAD) system. INDICATION: ??Screening mammogram. COMPARISON: ??Prior exams were available for comparison. DENSITY: ??c. The breast(s) are heteroge neously dense, which may obscure small masses. FINDINGS: ??There are posttreatment méndez ges right breast. No mammographic findings of malignancy either breast. Procedure Note Cristina Solis M.D. - 06/29/2018For matting of this note might be different from the original. EXAM: BI BREAST SCREENING BILATERAL WITH TOMOSYNTHESIS Current study was evaluated with a Compu ter Aided Detection (CAD) system. INDICATION: Screening mammogram. COMPARISON: Prior exams were available f or comparison. DENSITY: c. The breast(s) are heterogene ously dense, which may obscure small masses. FINDINGS: There are posttreatment change s right breast. No mammographic findings of malignancy either breast. IMPRESSION: Negative. RECOMMENDATION: Annual Screening Mammogr am ASSESSMENT: BI-RADS: 1: Negative. Kassie Storm M.D. IMG BI PROCEDURES documented in this encounter Visit Diagnoses Diagnosis Cancer Breast Personal History documented in this encounter Care Teams Coating Mixer Supervisor Relationship Specialty Start Date End Date Darryl Stallings M.B.B.S., M.D. PCP - General Family Medicine 06/10/[address] [place] [phone] documented as of this encounter
--- OUTSIDE RECORDS SUMMARY | 2022-08-04 08:19 | XMS_ITS | Encounter Summary ---
:1955 Author Organization [facility] Address [address] [place] [address] Care Team Providers Name Role Phone Darryl Stallings M.D. Primary Care Provider [phone] Reason for Referral MRI/CAT/PET Scan (Routine) - Closed Specialty Diagnoses / Procedures Referred By Contact Refer red To Contact Radiology Diagnoses Adenoma Pituitary Nonfunctioning (HCC) Corinne Coley [place] [facility] Procedures MR Pituitary without and with IV Contrast [place] MRI BRAIN WO/W CNTRST HC MRI BRAIN WO/W [facility]ST [place] MRI BRAIN WO/W CNTRST P.A.-C. [address] [place] [phone] Referral ID Status Reason Start Date Expiration Date Visits Requ ested Visits Authorized [id number] Closed 06/29/2018 06/29/2019 1 1 Reason for Visit MRI/CAT/PET Scan (Routine) - Closed Specialty Diagnoses / Procedures Referred By Contact Refer red To Contact Radiology Diagnoses Adenoma Pituitary Nonfunctioning (HCC) Corinne Coley [place] [facility] Procedures MR Pituitary without and with IV Contrast [place] MRI BRAIN WO/W [facility] HC MRI BRAIN WO/W CNTRST [place] MRI BRAIN WO/W CNTRST P.A.-C. [address] [place] [address] Referral ID Status Reason Start Date Expiration Date Visits Requ ested Visits Authorized [id number] Closed 06/29/2018 06/29/2019 1 1 Encounter Details Date Type Department Care Team Description 07/02/2020 Hospital Encounter Department of Vianca, Adenoma Pituitary Radiology, Macrina Kong ([facility]) Bobby, in P.A.-C. [place], [facility] [address] [place], [place] [address] [facility] [address] [place], [place] [phone] (Work) [phone] Social History Tobacco Use Types Packs/Day Years [...] How often do you attend restorationism or jainism More than 4 time s [...] place to sleep or slept in a intermediate (including now)? Education Answer Date Recorded What is the highest level of school Associate degree: [email or web address] program 06/27/2020 you have completed or the [...] Comme nts MR PITUITARY RAD - Routine 07/02/2020 9:33 Adenoma Pituitary Result s for WITHOUT AND WITH (most inpatients AM CDT Nonfunctioning (HCC) this procedure IV CONTRAST and all are in the outpatients) results section. documented in this encounter Results MR Pituitary without and with IV Contrast (07/02/2020 9:33 AM CDT) Anatomical Region Laterality Modality Head, Neuroradiology RST LOS, Neuroradiology ARZ LOS, N/A Magnetic Resonance Neuroradiology FLA [facility] Specimen (Source) Anatomical Collection Method Collection Time Re ceived Time Location / / Volume Laterality 07/02/2020 9:55 AM CDT Impressions 07/02/2020 10:33 AM CDT No significant change from the prior exam dated 06/21/2018, with persistent presumed residual pituitary a denoma along the right sella to cavernous sinus. Narrative 07/02/2020 10:33 AM CDT EXAM: MR PITUITARY WITHOUT AND WITH IV CONTRAST COMPARISON: Multiple prior brain MRIs, m ost recently 06/21/2018 dating back to 12/05/2003. 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 No significant change from the prior exam dated 06/21/2018. Stable size and a ppearance of presumed residual pituitary adenoma within the right lateral aspect of the sella to right cavernous sinus. Stable pituitary gland tissue along the floor and left lateral aspect of the sella. Persistent leftward deviation of the pituitary infundibulum. Stable minimal leukoaraiosis. Stable mild gener alized age-related parenchymal volume loss. No evidence of hydrocephalus. Mild mucosal thickening within the paranasal sinuses. Procedure Note Raj Perry M.D. - 07/02/2020Form atting of this note might be different from the original. EXAM: MR PITUITARY WITHOUT AND WITH IV C ONTRAST COMPARISON: Multiple prior brain MRIs, m ost recently 06/21/2018 dating back to 12/05/2003. 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 No significant change from the prior exam dated 06/21/2018. Stable size and a ppearance of presumed residual pituitary adenoma within the right lateral aspect of the sella to right cavernous sinus. Stable pituitary gland tissue along the floor and left lateral aspect of the sella. Persistent leftward deviation of the pituitary infundibulum. Stable minimal leukoaraiosis. Stable mild gener alized age-related parenchymal volume loss. No evidence of hydrocephalus. Mild mucosal thickening within the paranasal sinuses. IMPRESSION: No significant change from the prior exa m dated 06/21/2018, with persistent presumed residual pituitary a denoma along the right sella to cavernous sinus. Corinne Coley P.A.-C. IMG MRI PROCEDURES documented in this encounter Visit Diagnoses Diagnosis Adenoma Pituitary Nonfunctioning (HCC) documented in this encounter Administered Medications Inactive Administered Medications - up to 3 most recent administrations Medication Order MAR Action Action Date Dose Rate Site gadobutrol injection 0.01-30 mL Given 07/02/2020 9:24 AM CDT 7 m L (GADAVIST) 0.01-30 mL, intravenous, Once in imaging, contrast, Starting on Wed07/02/20 at 0836, For 1 dose, Imaging Protocol Orders, Dose per Radiant Medication Guidelines documented in this encounter Care Teams Painter And Grader Cork Relationship Specialty Start Date End Date Darryl Stallings M.B.BCamiloSDonovan Page. PCP - General Family Medicine 06/10/[address] [place] [phone] documented as of this encounter
--- OUTSIDE RECORDS SUMMARY | 2022-08-04 08:19 | XMS_ITS | Encounter Summary ---
:1955 Author Organization [facility] Address [address] [place] [address] Care Team Providers Name Role Phone Darryl Stallings M.D. Primary Care Provider [phone] Encounter Details Date Type Department Care Team Description 12/05/2019 Hospital Encounter Department of Christy, Alida Romero Mammogram Radiology in [facility], C.N[facility] Average Risk Patient [place], [place] [address] [facility] [address] [place] [phone] Social History Tobacco Use Types Packs/Day Years [...] or relatives? How often do you attend mormonism or yarsanism More than 4 time s per year 04/19/2022 services? Do you belong to any clubs or organizations Yes 04/19/2022 such as mormonism groups, unions, fraternal or athletic groups, or [...] place to sleep or slept in a long term (including now)? Education Answer Date Recorded What [...] Diagnosis BI BREAST SCREENING RAD - Routine 12/05/2019 9:51 Screening Resu lts for BILATERAL WITH (most inpatients AM WEATHERSEAL TECHNICIAN Mammogram Average this procedure TOMOSYNTHESIS and all Risk Patient are in the outpatients) results section. documented in this encounter Results BI Breast Screening Bilateral with Tomosynthesis (12/05/2019 9:51 AM WEATHERSEAL TECHNICIAN) Anatomical Region Laterality Modality Breast, Breast Imaging RST LOS, Breast Imaging ARZ LOS, Terri st Bilateral Mammography Imaging FLA LOS Specimen (Source) Anatomical Collection Method Collection Time Re ceived Time Location / / Volume Laterality 12/05/2019 12:20 PM WEATHERSEAL TECHNICIAN Impressions 12/05/2019 12:25 PM WEATHERSEAL TECHNICIAN Benign. RECOMMENDATION: ??Annual Screening Mammo gram ASSESSMENT: ??BI-RADS: 2: Benign. Narrative 12/05/2019 12:25 PM WEATHERSEAL TECHNICIAN EXAM: ??BI BREAST SCREENING BILATERAL WITH TOMOSYNTHESIS [...] am ASSESSMENT: BI-RADS: 2: Benign. Judy Harrison APRN, C.N.P. IMG BI PROCEDURES documented in this encounter Visit Diagnoses Diagnosis Screening Mammogram Average Risk Patient documented in this encounter Care Teams Carding Supervisor Relationship Specialty Start Date End Date Darryl Stallings M.B.B.S., M.D. PCP - General Family Medicine 06/10/[address] [place] [phone] documented as of this encounter
--- OUTSIDE RECORDS SUMMARY | 2022-08-04 08:20 | XMS_ITS | Encounter Summary ---
:1955 Author Organization [facility] Address [address] [place] [address] Care Team Providers Name Role Phone Jason Yu M.D. Primary Care Provider Encounter Details Date Type Department Care Team Description 04/11/2018 Orders Only Department of [facility] Billie Reese Internal Medicine in [address] [place] [address] [place] [address] [place] [address] Social History Tobacco Use Types Packs/Day Years Used Date Smoking Tobacco: Never Alcohol Habits Answer Date Recorded How often [...] or relatives? How often do you attend taoist or hoahaoism More than 4 time s per year 04/19/2022 services? Do you belong to any clubs or organizations Yes 04/19/2022 such as taoist groups, unions, fraternal or athletic groups, or [...] on filedocumented in this encounter Care Teams Stevedore Dock Relationship Specialty Start Date End Date Jason Yu M.D. PCP - General 04/01/17 06/09/[address] [place] [address] [place] [id number] documented as of this encounter
--- OUTSIDE RECORDS SUMMARY | 2022-08-04 08:20 | XMS_ITS | Encounter Summary ---
:1955 Author Organization [facility] Address [address] [place] [id number] Care Team Providers Name Role Phone aDrryl Stallings M.D. Primary Care Provider [phone] Encounter Details Date Type Department Care Team Description 06/21/2018 Hospital Encounter Department of Corinne Coley Specified Disorders Of Bone Density And Structure Unspecified Site; Laboratory Medicine S, P.A.-C. Tumor Benign Pituitary (HCC) and Pathology, [address] [place] [address], in [facility] [phone] [place] [phone] [place] [address] (Work) [place], [place] [phone] (Fax) [phone] Social History Tobacco Use Types Packs/Day Years [...] or relatives? How often do you attend hoahaoism or taoist More than 4 time s per year 04/19/2022 services? Do you belong to any clubs or organizations Yes 04/19/2022 such as hoahaoism groups, unions, fraternal or athletic groups, or [...] Priority Date/Time Associated Diagnosis Comme nts 25-HYDROXYVITAMIN D2 Routine 06/21/2018 9:34 AM Other Specifie d Results for this AND D3, S CDT Disorders Of Bone procedure are in Density And the results Structure section. Unspecified Site Tumor Benign Pituitary (HCC) PROLACTIN, S Routine 06/21/2018 9:34 AM Tumor Benign Results f or this CDT Pituitary (HCC) procedure are in Other Specified the results Disorders Of Bone section. Density And Structure Unspecified Site CBC WITHOUT Routine 06/21/2018 9:34 AM Other Specified Result s for this DIFFERENTIAL, B CDT Disorders Of Bone procedu re are in Density And the results Structure section. Unspecified Site Tumor Benign Pituitary (HCC) THYROID-STIMULATING Routine 06/21/2018 9:34 AM Tumor Benign Re sults for this HORMONE-SENSITIVE CDT Pituitary (HCC ) procedure are in (S-TSH) Other Specified the results Disorders Of Bone section. Density And Structure Unspecified Site T4 (THYROXINE), Routine 06/21/2018 9:34 AM Tumor Benign Result s for this FREE, S CDT Pituitary (HCC) procedure are in Other Specified the results Disorders Of Bone section. Density And Structure Unspecified Site SODIUM, S/P Routine 06/21/2018 9:34 AM Tumor Benign Results f or this CDT Pituitary (HCC) procedure are in Other Specified the results Disorders Of Bone section. Density And Structure Unspecified Site POTASSIUM, S/P Routine 06/21/2018 9:34 AM Tumor Benign Results for this CDT Pituitary (HCC) procedure are in Other Specified the results Disorders Of Bone section. Density And Structure Unspecified Site GLUCOSE, FASTING, Routine 06/21/2018 9:34 AM Other Specified R esults for this S/P CDT Disorders Of Bone procedure are in Density And the results Structure section. Unspecified Site Tumor Benign Pituitary (HCC) CREATININE WITH Routine 06/21/2018 9:34 AM Other Specified Res ults for this EGFR, S/P CDT Disorders Of Bone procedure are in Density And the results Structure section. Unspecified Site Tumor Benign Pituitary (HCC) CORTISOL, S Routine 06/21/2018 9:34 AM Other Specified Result s for this CDT Disorders Of Bone procedure are in Density And the results Structure section. Unspecified Site Tumor Benign Pituitary (HCC) CALCIUM, TOT, S/P Routine 06/21/2018 9:34 AM Tumor Benign Resu lts for this CDT Pituitary (HCC) procedure are in Other Specified the results Disorders Of Bone section. Density And Structure Unspecified Site documented in this encounter Results Cortisol (06/21/2018 9:34 AM CDT) athologist Signature Cortisol AM 8.0 7 - 25 06/21/2018 [facility] Result mcg/dL 11:26 AM CDT LABORATORIES - [facility] Specimen Anatomical Collection Method Collection Time Receive d Time (Source) Location / / Volume Laterality Blood 06/21/2018 9:34 AM 8 9:54 CDT AM CDT Corinne Coley P.A.-C. LAB BLOOD ADD-ON Performing Organization Address City/State/ZIP Code Phon e Number [facility] LAB[facility]ATORIES - [address] [place], [place] [address] [facility] Prolactin (06/21/2018 9:34 AM CDT) athologist Signature Prolactin 9.7 4.8 - 23.3 06/21/2018 [facility] Total ng/mL 10:50 AM T [facility] Comment: ----ADDITIONAL INFORMATION---- The testing method is [...] (Source) Location / / Volume Laterality Blood 06/21/2018 9:34 AM 8 9:54 CDT AM CDT Corinne Coley P.A.-C. LAB BLOOD ADD-ON Performing Organization Address City/State/ZIP Code Phon e Number [facility] - [address] T4 (Thyroxine), Free (06/21/2018 9:34 AM CDT) athologist Signature T4 1.1 0.9 - 1.7 06/21/2018 [facility] (Thyroxine), ng/dL 10:42 AM CDT [facility] Specimen Anatomical Collection Method Collection Time Receive d Time (Source) Location / / Volume Laterality Blood 06/21/2018 9:34 AM 8 9:54 CDT AM CDT Corinne Coley P.A.-C. LAB BLOOD ADD-ON Performing Organization Address City/[facility]/ZIP Code Phon e Number [facility]IES - [address] S-TSH (Thyroid-Stimulating Hormone - Sensitive) (06/21/2018 9:34 AM CDT) P athologist Signature TSH, Sensitive 1.4 0.3 - 4.2 06/21/2018 [facility] mIU/L 10:41 AM CDT [facility] Specimen Anatomical Collection Method Collection Time Receive d Time (Source) Location / / Volume Laterality Blood 06/21/2018 9:34 AM 8 9:54 CDT AM CDT Corinne Coley P.A.-C. LAB BLOOD ADD-ON Performing Organization Address City/State/ZIP Code Phon e Number [facility]IES - [address] [place] [phone] 05 [facility] Creatinine with Estimated GFR (MDRD) (06/21/2018 9:34 AM CDT) Analysis Performed At Patho logist Time Signature Creatinine 0.81 0.59 - 06/21/2018 [facility] 1.04 mg/dL 10:41 AM CDT [facility] - [facility] eGFR-Non 78 >=60 06/21/2018 [facility] Black/ mL/min/BSA 10:41 AM CDT LABORATORIES - [facility] Comment: ----ADDITIONAL INFORMATION---- Estimated GFR calculated using the 2009 CKD_EPI creatinine equation. eGFR-Black/ 89 >=60 mL/min/BSA 06/21/2018 10:4 1 [facility] CDT [facility] - [facility] Comment: ----ADDITIONAL INFORMATION---- Estimated GFR calculated using the 2009 CKD_EPI creatinine equation. Specimen Anatomical Collection Method Collection Time Receive d Time (Source) Location / / Volume Laterality Blood 06/21/2018 9:34 AM 8 9:54 CDT AM CDT Corinne Coley P.A.-C. LAB BLOOD ADD-ON Performing Organization Address City/[facility]/ZIP Code Phon e Number [facility]IES - [address] [place] [phone] [facility] Calcium, Total (06/21/2018 9:34 AM CDT) athologist [facility] Calcium, 9.2 8.8 - 10.2 06/21/2018 [facility] Total, S mg/dL 10:41 AM CDT [facility] - [facility] Specimen Anatomical Collection Method Collection Time Receive d Time (Source) Location / / Volume Laterality Blood 06/21/2018 9:34 AM 8 9:54 CDT AM CDT Corinne Coley P.A.-C. LAB BLOOD ADD-ON Performing Organization Address City/State/ZIP Code Phon e Number [facility]IES - [address] [place], [place] [address] [facility] Glucose, Fasting (06/21/2018 9:34 AM CDT) P athologist Signature Glucose, P 91 70 - 100 06/21/2018 [facility] mg/dL 10:28 AM CDT [facility] Last Intake 13 hr 06/21/2018 [facility] 9:54 AM CDT [facility] Specimen Anatomical Collection Method Collection Time Receive d Time (Source) Location / / Volume Laterality Blood 06/21/2018 9:34 AM 8 9:54 CDT AM CDT Corinne Coley P.A.-C. LAB BLOOD NON ADD-ON Performing Organization Address City/[facility]/ZIP Code Phon e Number [facility] - [address] [place] [phone] [facility] 25-Hydroxyvitamin D2 and D3 (06/21/2018 9:34 AM CDT) athologist Signature 25-Hydroxy D2 <4.0 ng/mL 06/22/2018 [facility] 7:10 AM CDT [facility] 25-Hydroxy D3 39 ng/mL 06/22/2018 [facility] 7:10 AM CDT [facility] 25-Hydroxy D 39 ng/mL 06/22/2018 [facility] Total 7:10 AM CDT [facility] Comment: ----REFERENCE VALUE---- 25-HYDROXY D TOTAL (D2+D3) Optimum level s in the healthy population are 20-50, patients with bone disease may benefit from higher levels within this r jesus alberto. ----ADDITIONAL INFORMATION---- This test was developed and its performa nce characteristics determined by [facility] in a manner consistent with CLIA requirements. This test has not been cleared or approved by the [place] d and Drug Administration. Specimen Anatomical Collection Method Collection Time Receive d Time (Source) Location / / Volume Laterality Blood 06/21/2018 9:34 AM 8 CDT 12:57 PM CDT Corinne Coley P.A.-C. LAB BLOOD ADD-ON Performing Organization Address City/[facility]/ZIP Code Phon e Number [facility] [address] [place] [phone] [facility] Potassium (06/21/2018 9:34 AM CDT) athologist Signature Potassium, S 4.4 3.6 - 5.2 06/21/2018 [facility] mmol/L 10:41 AM CDT LABORATORIES [facility] Specimen Anatomical Collection Method Collection Time Receive d Time (Source) Location / / Volume Laterality Blood 06/21/2018 9:34 AM 8 9:54 CDT AM CDT Corinne Coley P.A.-C. LAB BLOOD ADD-ON Performing Organization Address City/[facility]/ZIP Code Phon e Number [facility]IES - [address] [place] [phone] [facility] Sodium (06/21/2018 9:34 AM CDT) P athologist Signature Sodium, S 144 135 - 145 06/21/2018 [facility] mmol/L 10:41 AM CDT LABORATORIES [facility] Specimen Anatomical Collection Method Collection Time Receive d Time (Source) Location / / Volume Laterality Blood 06/21/2018 9:34 AM 8 9:54 CDT AM CDT Corinne Coley P.A.-C. LAB BLOOD ADD-ON Performing Organization Address City/State/[facility] Code Phon e Number [facility]IES - [address] [place] [phone] [facility] (ABNORMAL) CBC without Differential (06/21/2018 9:34 AM CDT) Patholo gist Method Time Signature Hemoglobin 14.9 11.6 - 06/21/2018 [facility] 15.0 g/dL 10:19 AM CDT LABORATORIES [facility] Hematocrit 45.8 (H) 35.5 - 06/21/2018 [facility] 44.9 % 10:19 AM CDT LABORATORIES [facility] Erythrocytes 5.06 3.92 - 06/21/2018 [facility] 5.13 10:19 AM CDT LABORATORIES - x10(12)/L [facility] MCV 90.5 78.2 - 06/21/2018 [facility] 97.9 fL 10:19 AM CDT LABORATORIES [facility] RBC Distrib 12.9 12.2 - 06/21/2018 [facility] Width 16.1 % 10:19 AM CDT LABORATORIES [facility] Platelet Count 152 (L) 157 - 371 06/21/2018 [facility] x10(9)/L 10:19 AM CDT LABORATORIES [facility] Leukocytes 5.6 3.4 - 9.6 06/21/2018 [facility] x10(9)/L 10:19 AM CDT [facility] - [facility] Specimen Anatomical Collection Method Collection Time Receive d Time (Source) Location / / Volume Laterality Blood 06/21/2018 9:34 AM 8 9:54 CDT AM CDT Corinne Coley P.A.-C. LAB BLOOD ADD-ON Performing Organization Address City/State/ZIP Code Phon e Number [facility]ATORIES - [address] [place], [place] [address] [facility] documented in this encounter Visit Diagnoses Diagnosis Other Specified Disorders Of Bone Densit y And Structure Unspecified Site Tumor Benign Pituitary (HCC) documented in this encounter Care Teams Recyclable Materials Collector Relationship Specialty Start Date End Date Darryl Stallings M.B.B.S., M.D. PCP - General Family Medicine 06/10/[address] [place] [phone] documented as of this encounter
--- OUTSIDE RECORDS SUMMARY | 2022-08-04 08:20 | XMS_ITS | Encounter Summary ---
:1955 Author Organization [facility] Address [address] [place] [address] Care Team Providers Name Role Phone Darryl Stallings M.D. Primary Care Provider [phone] Reason for Referral Outpatient (Routine) - Closed Specialty Diagnoses / Procedures Referred By Contact Refer red To Contact Radiology Diagnoses Osteopenia Corinne Coley, Procedures BMD Bone Density Spine Hips BMD BONE DENSITY SPINE HIPS DC DEXA BONE DENSITY [facility] HC XR DEXA AXIAL SKLTN P.A.-C. [address] [place] [phone] Referral ID Status Reason Start Date Expiration Date Visits Requ ested Visits Authorized [id number] Closed 06/29/2018 06/29/2019 1 1 MRI/CAT/PET Scan (Routine) - Closed Specialty Diagnoses / Procedures Referred By Contact Refer red To Contact Radiology Diagnoses Adenoma Pituitary Nonfunctioning (HCC) Corinne Coley, Taye Regio n Procedures MR Pituitary without and with IV Contrast DC MRI BRAIN WO/W CNTRST HC MRI BRAIN WO/W CNTRST DC MRI BRAIN WO/W CNTRST P.A.-C. [address] [place] [phone] Referral ID Status Reason Start Date Expiration Date Visits Requ ested Visits Authorized [id number] Closed 06/29/2018 06/29/2019 1 1 Outpatient (Routine) - Closed Specialty Diagnoses / Procedures Referred By Contact Refer red To Contact Endocrinology Diagnoses Adenoma Pituitary [facility]functioning (HCC) [facility] [address] [place] [phone] Referral ID Status Reason Start Date Expiration Date Visits Requ ested Visits Authorized [id number] Closed 06/29/2018 06/29/2019 1 1 Reason for Visit Outpatient (Routine) - Closed Specialty Diagnoses / Procedures Referred By Contact Refer red To Contact Endocrinology Corinne Coley P.A.-C. [address] [phone] Referral ID Status Reason Start Date Expiration Date Visits Requ ested Visits Authorized [id number] Closed 02/04/2018 08/03/2018 1 1 Encounter Details Date Type Department Care Team Description 06/29/2018 Office Visit Division of Corinne Coley Adenoma Pit uitary Nonfunctioning (HCC) (Primary Dx); [place], [place] [address] [place] [address] [place] [phone] Social History Tobacco Use Types Packs/Day Years [...] How often do you attend alevism or roman catholic More than 4 time s per year [...] place to sleep or slept in a [place] [facility] facility (including now)? Sex Assigned at Date Recorded Female 06/28/2018 6:37 PM CDT documented as of this encounter Last Filed Vital Signs Vital Sign Reading Time Taken Comments Blood Pressure 101/61 06/29/2018 10:14 AM CDT Pulse 60 06/29/2018 10:14 AM CDT Temperature - - Respiratory Rate - - Oxygen Saturation - - Inhaled Oxygen Concentration - - Weight 60.5 kg (133 lb 6.1 oz) 06/29/2018 10:14 AM CDT Height 174.2 cm (5' 8.58) 06/29/2018 10:14 AM CDT Body Mass Index 19.94 06/29/2018 10:14 AM CDT documented in this encounter H&P Notes Corinne Coley P.A.-C. - 06/29/2018 10:30 AM CDT SUBJECTIVE ENDOCRINOLOGY ESTABLISHED PATIENT VISIT Service Date: 06/29/2018 CHIEF COMPLAINT/REASON FOR VISIT Mrs. 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 HISTORY OF PRESENT ILLNESS Mrs. Rhonda Berumen is a pleasant 62 y.o. 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 Ms. Berumen had a transsphenoidal resection performed in [place] on December 11, 2003. Pathology showeda non-functioning pituitary adenoma. -Post-operative course: Had serial MRIs, question of residual adenoma around the right carotid in 2010. The patient visited with Dr. De Leon for the possibility of gamma-knife radiosurgery, but this was never performed and she continued to follow-up on a regular basis. No evidence of hypopituitarism post-operatively and no other complications. -Last MRI: June 2016. No significant change in the appearance of postoperative sella with stable possible residual adenoma within the right lateral sella allowing for differences in technique. -Pituitary related medications: None Taking calcium/vitamin D3 (500/1000) once daily. -Current symptoms: The patient feels well and has no symptom complaints. Minor fatigue at the end of a long work day. Denies nausea, vomiting, dizziness, muscle weakness, weight gain, headache, vision changes, cold intolerance, polyuria, polydipsia and decreased appetite. Constipation at baseline but no changes. -Interval History: Mrs. Berumen is doing well. She is tired at the end of a work day but is otherwise doing fine. She will be seeing the breast clinic later today for follow-up of her breast cancer history. No fractures. She knows that she should be doing a little more weight-bearing exercises. Review of Systems Pertinent items are noted in HPI. The following systems were negative: Constitutional, Skin, Eyes, ENT, CV, Respiratory, GI, , Hematologic, Musculoskeletal, Neuro, Psych The following portions of the patient's history were reviewed and updated as appropriate: allergies,current medications, problem list and medical history. OBJECTIVE Vital Signs BP 101/61 Pulse 60 Ht 174.2 cm Wt 60.5 kg BMI 19.94 kg/m?? Physical Exam Constitutional: She is oriented to person, place, and time. She appears well- developed and well-nourished. No distress. Pulmonary/Chest: Effort normal. Musculoskeletal: Normal range of motion. Neurological: She is alert and oriented to person, place, and time. Psychiatric: She has a normal mood and affect. Labs Results for orders placed or performed during the hospital encounter of 06/21/18 CBC without Differential Result Value Ref Range Hemoglobin 14.9 11.6 - 15.0 g/dL Hematocrit 45.8 (H) 35.5 - 44.9 % Erythrocytes 5.06 3.92 - 5.13 x10(12)/L MCV 90.5 78.2 - 97.9 fL RBC Distrib Width 12.9 12.2 - 16.1 % Platelet Count 152 (L) 157 - 371 x10(9)/L Leukocytes 5.6 3.4 - 9.6 x10(9)/L Sodium Result Value Ref Range Sodium, S 144 135 - 145 mmol/L Potassium Result Value Ref Range Potassium, S 4.4 3.6 - 5.2 mmol/L 25-Hydroxyvitamin D2 and D3 Result Value Ref Range 25-Hydroxy D2 <4.0 ng/mL 25-Hydroxy D3 39 ng/mL 25-Hydroxy D Total 39 ng/mL Glucose, Fasting Result Value Ref Range Glucose, P 91 70 - 100 mg/dL Last Intake 13 hr Calcium, Total Result Value Ref Range Calcium, Total 9.2 8.8 - 10.2 mg/dL Creatinine with Estimated GFR (MDRD) Result Value Ref Range Creatinine, S 0.81 0.59 - 1.04 mg/dL eGFR-Non Black 78 >=60 mL/min/BSA eGFR-Black 89 >=60 mL/min/BSA S-TSH (Thyroid-Stimulating Hormone - Sensitive) Result Value Ref Range TSH, Sensitive, S 1.4 0.3 - 4.2 mIU/L T4 (Thyroxine), Free Result Value Ref Range T4 (Thyroxine), Free, S 1.1 0.9 - 1.7 ng/dL Prolactin Result Value Ref Range Prolactin Total 9.7 4.8 - 23.3 ng/mL Cortisol Result Value Ref Range AM Result 8.0 7 - 25 mcg/dL Pending labs include: None Imaging Mr Brain Without And With Iv Contrast Result Date: 06/21/2018 Narrative: EXAM: MR BRAIN WITHOUT AND WITH IV CONTRAST COMPARISON: Multiple brain MRI exams including exams dated 06/30/2017, 06/25/2014, 05/04/2006, and 03/26/2004. FINDINGS: Postsurgical changes of transsphenoidal surgery for resection of pituitary macroadenoma. Stable there is evidence for overall slight decrease in size of residual pituitary gland along the right lateral aspect of the sella, when compared to 06/30/2016, and similar to that evident on the 11/18/2012 exam. Stable expanded, partially empty sella. Stable right cavernous sinus component. Stable leftward deviation of the pituitary stalk, with normal enhancing pituitary gland tissue along the left lateral margin of the sella turcica. Stable small cystic abnormality along the floor of the right sella allowing for differences in imaging technique, which has varied slightly in appearance across multiple exams. No new or enlarging abnormality. Mild age commensurate brain parenchymal volume loss. Minor white matter signal abnormality likely reflecting chronic microvascular angiopathic change. No mass effect or midline shift. Impression: IMPRESSION: Stable to minimal interval decrease in size of residual pituitary adenoma along the right lateral aspect of the sella turcica with otherwise stable right cavernous sinus when compared to multiple prior examinations, as above. Bmd Bone Density Spine Hips Result Date: 06/21/2018 FRAX Score Major Osteoporotic: 9.0% Hip Fracture: 1.4% Impression: IMPRESSION: Osteopenia ASSESSMENT / PLAN Ms. Berumen and I reviewed pertinent labs and imaging results together. Overall, from the endocrine perspective she is doing well. We have agreed on a plan as follows: #1 Adenoma Pituitary Nonfunctioning (HCC) No evidence of pituitary dysfunction on labs and MRI shows stable to minimally decreased size of residual. She is happy to hear this news. Platelets are low, but this has been seen on past labs. I'm also not concerned about the slight increase in hematocrit. -Pituitary related medication recommendations: None required. Would recommend continued surveillance. We will plan for two years for next MRI, but will move the imaging interval out to three years if the next check is normal. #2 Osteopenia Bone density continues to show osteopenia, with changes less than the least significant change from previous. Although there is a change from baseline in 2011, given FRAX scores and no fragility fractures would recommend continued calcium/vitamin D supplement and weight-bearing exercise. We discussed using wrist-weights when walking and also avoiding falls. Will obtain bone density in two years [...] spent over half of a total of 15 minutes face to face with the patient in counseling and discussion and/or coordination of care as described above. documented in this encounter Plan of Treatment Scheduled Referrals Name Type Priority Associated Diagnoses Order [facility] office Outpatient Routine Adenoma Pituitary Ex pected: visit (clinic) Referral Nonfunctioning ( HCC) 06/29/2020 Osteopenia (Approximate), Expires: 06/29/2022 documented as of this encounter Results BMD Bone Density Spine [...] including images and graphs, is available in [employer]. ?In the absence of other causes of [...] image stored in the BMD study in [employer]), the calculated ten year probability of fracture [...] evidence of skeletal fragility in the a formerly [facility] clinical setting. Based on the bone density [...] Osteopenia Corinne Coley P.A.-C. IMG DXA PROCEDURES MR Pituitary without and with IV Contrast (07/02/2020 9:33 AM CDT) Anatomical Region Laterality Modality Head, Neuroradiology RST LOS, Neuroradiology ARZ LOS, N/A Magnetic Resonance Neuroradiology FLA LOS Specimen (Source) Anatomical Collection Method [...] the right sella to cavernous sinus. Corinne GODFREY MRI PROCEDURES 25-Hydroxyvitamin D2 and D3 (07/02/2020 7:29 AM CDT) P athologist Signature 25-Hydroxy D2 <4.0 ng/mL 07/03/2020 SDSC 5:16 AM CDT 25-Hydroxy D3 47 ng/mL 07/03/2020 SDSC 5:16 AM CDT 25-Hydroxy D 47 ng/mL 07/03/2020 SDSC Total 5:16 AM CDT Comment: ----REFERENCE VALUE---- 25-HYDROXY D TOTAL (D2+D3) Optimum level s in the healthy population are 20-50, patients with bone disease may benefit from higher levels within this r jesus alberto. ----ADDITIONAL INFORMATION---- This test was developed and its performa nce characteristics determined by [facility] in a manner consistent with CLIA requirements. This test has not been cleared or approved by the [place] d and Drug Administration. Specimen Anatomical Collection Method Collection Time Receive d Time (Source) Location / / Volume Laterality Blood (Blood, 07/02/2020 7:29 AM 07/02/20 Venous) CDT 10:31 AM CDT Corinne Coley P.A.-C. LAB BLOOD ADD-ON Performing Organization Address [facility] Phon e Number [facility] [address] [place], [place] [address] [facility] [place] [address] Laboratory Medicine and Pathology [address] [...] P.A.-C. LAB BLOOD ADD-ON Performing Organization Address City/[facility] Phon e Number [facility] - [address] [place], [place] [address] [facility] [place] [address] Laboratories-[facility] [address] S-TSH (Thyroid-Stimulating Hormone - Sensitive) (07/02/2020 7:29 AM CDT) athologist Signature TSH, Sensitive 1.1 0.3 - 4.2 07/02/2020 DTL mIU/L 8:58 AM CDT Specimen Anatomical Collection Method Collection Time Receive d Time (Source) Location / / Volume Laterality Blood (Blood, 07/02/2020 7:29 AM 07/02/20 20 8:11 Venous) CDT AM CDT Corinne Coley P.A.-C. LAB BLOOD ADD-ON Performing Organization Address City/State/[facility] Code Phon e Number [facility] - [address] T4 (Thyroxine), Free (07/02/2020 7:29 AM CDT) athologist Signature T4 (Thyroxine), 1.3 0.9 - 1.7 07/02/2020 DTL Free, S ng/dL 8:50 AM CDT Specimen Anatomical Collection Method Collection Time Receive d Time (Source) Location / / Volume Laterality Blood (Blood, 07/02/2020 7:29 AM 07/02/20 20 8:11 Venous) CDT AM CDT Corinne Coley P.A.-C. LAB BLOOD ADD-ON Performing Organization Address City/[facility]/ZIP Code Phon e Number [facility] - [address] [place] [address] [facility] [address] Sodium (07/02/2020 7:29 AM CDT) athologist Signature Sodium, S 142 135 - 145 07/02/2020 8:50 DTL mmol/L AM CDT Specimen Anatomical Collection Method Collection Time Receive d Time (Source) Location / / Volume Laterality Blood (Blood, 07/02/2020 7:29 AM 07/02/20 20 8:11 Venous) CDT AM CDT Corinne Coley P.A.-C. LAB BLOOD ADD-ON Performing Organization Address City/State/ZIP Code Phon e Number [facility] - [id number] [place] [address] Creatinine with Estimated GFR (07/02/2020 7:29 AM CDT) athologist Signature Creatinine 0.94 0.59 - 07/02/2020 DTL 1.04 mg/dL 8:50 AM CDT eGFR-Non 64 >=60 07/02/2020 DT Black/ mL/min/BSA 8:50 AM CDT [place] Comment: ----ADDITIONAL INFORMATION---- Estimated GFR calculated using the 2009 CKD_EPI creatinine equation. eGFR-Black/ 74 >=60 mL/min/BSA 2019 8:50 AM CDT DT Comment: ----ADDITIONAL INFORMATION---- Estimated GFR calculated using the 2009 CKD_EPI creatinine equation. Specimen Anatomical Collection Method Collection Time Receive d Time (Source) Location / / Volume Laterality Blood (Blood, 07/02/2020 7:29 AM 07/02/20 20 8:11 Venous) CDT AM CDT Corinne Coley P.A.-C. LAB BLOOD ADD-ON Performing Organization Address City/State/ZIP Code Phon e Number [facility] - [address] Cortisol (07/02/2020 7:29 AM CDT) athologist Signature Cortisol AM 13 7 - 25 07/02/2020 DT Result mcg/dL 9:02 AM CDT Specimen Anatomical Collection Method Collection Time Receive d Time (Source) Location / / Volume Laterality Blood (Blood, 07/02/2020 7:29 AM 07/02/20 20 8:13 Venous) CDT AM CDT Corinne Coley P.A.-C. LAB BLOOD ADD-ON Performing Organization Address City/State/ZIP Code Phon e Number [facility] - [phone] [place] [address] documented in this encounter Visit Diagnoses Diagnosis Adenoma Pituitary Nonfunctioning (HCC) - Primary Osteopenia Adenoma Pituitary Nonfunctioning (HCC) Osteopenia documented in this encounter Care Teams Air Pollution Compliance Inspector Relationship Specialty Start Date End Date Darryl Stallings M.B.B.S., M.D. PCP - General Family Medicine 06/10/[address] [place] [address] SABINO Castellano [phone] documented as of this encounter
--- OUTSIDE RECORDS SUMMARY | 2022-08-04 08:20 | XMS_ITS | Encounter Summary ---
:1955 Author Organization [facility] Address [address] [place] [address] Care Team Providers Name Role Phone Darryl Stallings M.D. Primary Care Provider [phone] Encounter Details Date Type Department Care Team Description 10/27/2010 Historical Ophthalmology RST OPH Juan Daniel Alfaro M.D. Social History Tobacco Use Types Packs/Day Years Used Date Smoking Tobacco: Never Assessed Alcohol Habits Answer Date Recorded How often [...] or relatives? How often do you attend restorationist or sikhism More than 4 time s per year 04/19/2022 services? Do you belong to any clubs or organizations Yes 04/19/2022 such as restorationist groups, unions, fraternal or athletic groups, or [...] or slept in a correction (including now)? Sex Assigned at Date Recorded Female 06/28/2018 6:37 PM CDT documented as of this encounter Progress Notes Romy Alfaro M.D. - 10/27/2010 8:06 AM CST Eye General CHIEF COMPLAINT Blurred vision, left eye HISTORY OF PRESENT ILLNESS Blurred vision; left eye; constant; since 2003; she had a pituitary adenoma that was involving the optic nerve and she had severe vision loss in the left eye which was the only symptom she had from the adenoma. She had some superior visual field loss in the right eye as well. After the surgery, the visual field in the right eye seemed back to baseline; it took about a year for the vision to gradually improve in the left eye. She does not feel the left eye is back to baseline, but still much improvement from before the surgery. After the surgery she was having routine follow-up exams at [facility] in [place], [place] and this would narinder a two-year follow-up for her. Patient states she did haveoutside records sent to [place] from previous exams elsewhere and feels they may have been sent to Dr. Sandy Vigil, Endocrinology. There is no outside visual burrell scanned into the system at this time. Automated visual field completed. JAL: No outside eye note available to me. Just moved to [place] from [facility] - retired and they wanted to be closer to their children in the [facility]. Reviewed uploaded outside brain MRI from 12/24 which shows mass on the left side of the sella adjacent to the optic nerve. IMPRESSION / REPORT / PLAN Consult requested by: Adrianna Teresa [phone] #1 Pituitary tumor, with ocular findings. Decreased vision OS, color Va down L > R. #2 Visual field report, temporal hemianopia superior left eye. Foveal threshold 36 OD, 30 OS. Once the outside field is downloaded, I would be happy to compare today's to the previous one if needed. #3 Optic atrophy left eye. Plan: get disc photos and OCT. Reviewed photos and OCT with she and her . OCT shows thinning L > R with avg thickness of 81 OD, 66 OS. Signal strength was 8/10 OU. DIAGNOSIS #1 Pituitary tumor, with ocular findings. 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 CDM Reports - EYEGEN Id: [id number] Status: Fnl documented in this encounter Plan of Treatment Not on filedocumented as of this encounter Visit Diagnoses Not on filedocumented in this encounter Care Teams Ballistics Professor Relationship Specialty Start Date End Date Darryl Stallings M.B.B.S., M.D. PCP - General Family Medicine 06/10/[address] [place] [phone] documented as of this encounter
--- OUTSIDE RECORDS SUMMARY | 2022-08-04 08:20 | XMS_ITS | Encounter Summary ---
:1955 Author Organization [facility] Address [address] [place] [address] Care Team Providers Name Role Phone Unavailable Primary Care Provider Unavailable Encounter Details Date Type Department Care Team Description 11/10/2013 Hospital Encounter HX [facility] CV-Shukri Guerrero Jr., M.D. [address] [place] [address] (Wo rk) Social History Tobacco Use Types [...] or relatives? How often do you attend nondenominational or confucianism More than 4 time s per year 04/19/2022 services? Do you belong to any clubs or organizations Yes 04/19/2022 such as nondenominational groups, unions, fraternal or athletic groups, or [...] slept in a long term (including now)? Sex Assigned at Date Recorded Female 06/28/2018 6:37 PM CDT documented as of this encounter Medications at Time of Discharge Medication Sig Dispensed Refills Start Date End Date calcium citrate/vitamin Take 1 tablet by 0 2008 D3 (CITRACAL REGULAR mouth daily. ORAL) multivitamin tablet Take 1 tablet by 0 09/06/2009 mouth daily. biotin 1 mg capsule Take 1 capsule by 0 2 04/21/2022 mouth daily. documented as of this encounter Plan of Treatment Not on filedocumented as of this encounter Visit Diagnoses Not on filedocumented in this encounter
--- OUTSIDE RECORDS SUMMARY | 2022-08-04 08:20 | XMS_ITS | Encounter Summary ---
:1955 Author Organization [facility] Address [address] [place] [address] Care Team Providers Name Role Phone Unavailable Primary Care Provider Unavailable Encounter Details Date Type Department Care Team Description 03/26/2011 Hospital Encounter HX [facility] Israel Guerrero Jr., M.D. [address], [place] [address] (Wo rk) Social History Tobacco Use Types [...] How often do you attend sabianist or amish More than 4 time s per year [...] or slept in a fpc (including now)? Sex Assigned at Date Recorded Female 06/28/2018 6:37 PM CDT documented as of this encounter Medications at Time of Discharge Medication Sig Dispensed Refills Start Date End Date calcium citrate/vitamin D3 Take 1 tablet by 0 (CITRACAL REGULAR ORAL) mouth daily. multivitamin tablet Take 1 tablet by 0 09/06/2009 mouth daily. documented as of this encounter Progress Notes Ramesh Crowley, C.O.T. - 03/26/2011 9:47 AM CDT Eye Services Clinic Exam Eye Services Clinic Exam Entered On: 03/26/2011 10:02 CDT Performed On: 03/26/2011 9:47 CDT by RAMESH CROWLEY Chief Complaint and History Pain Symptoms: No ISRAEL PRINGLE MD - 03/26/2011 10:31 CDT Reason for Visit: Other: Pt here for routine eye exam Wears soft disp toric ctx Wt 12 hrs Bifinity 8.7 14.5 -4.25-75x90 -4.25-75x5 Becki solution Had pituitary adenoma removed L eye affected RAMESH CROWLEY - 03/26/2011 9:47 CDT Optometry Exam Familty History Grid Cataract: Father Stroke: Mother RAMESH CROWLEY - 03/26/2011 9:47 CDT Vision Testing Right Eye Vision Testing: With glasses - primary, 20/20 Left Eye Vision Testing: With glasses - primary, 20/40 Both Eyes Vision Testing: With glasses - primary, 20/30 RAMESH CROWLEY - 03/26/2011 9:47 CDT Refractive Procedure Consult Glasses/RE Glasses/LE Sphere: -5.75 -625 CYL: +0.75 +1.25 Cotter: 10 140 ADD: +2.50 +2.50 RAMESH CROWLEY - 03/26/2011 9:47 CDT RAMESH CROWLEY - 03/26/2011 9:47 CDT Glasses/RE Glasses/LE RAMESH CROWLEY - 03/26/2011 9:47 CDT DAYNERAMESH - 03/26/2011 9:47 CDT Right Eye Manifest Grid Date: 03/26/2011 CDT Performed by: Tech Sphere: -575 CYL: +0.75 Cotter: 10 ADD: +2.50 Prism: 20/20 RAMESH CROWLEY - 03/26/2011 9:47 CDT Left Eye Manifest Grid Date: 03/26/2011 CDT Performed by: Tech Sphere: -625 CYL: +1.25 Cotter: 135 ADD: +2.50 Prism: 20/40 RAMESH CROWLEY - 03/26/2011 9:47 CDT Ocular Testing EOMS: Normal Pupils: PERRLA Cover Test: Normal RAMESH CROWLEY - 03/26/2011 9:47 CDT Intraoccular Pressures Intraoccular Pressures Grid Date: 03/26/2011 CDT 03/26/2011 CDT Eye: RE LE Applanation: 16 16 RAMESH CROWLEY - 03/26/2011 9:47 CDT RAMESH CROWLEY - 03/26/2011 9:47 CDT Eye Drops Exam Phenylephrine 2.5% Eye Drops Eye: Both eyes Phenylephrine 2.5% Eye Drops Amount: One drop Phenylephrine 2.5% Eye Drops Time: 10:01 CAN CONVEYOR FEEDER Tropicamide 1% Eye Drops Eye: Both eyes Tropicamide 1% Eye Drops Amount: One drop Tropicamide 1% Eye Drops Time: 10:01 CAN CONVEYOR FEEDER RAMESH CROWLEY - 03/26/2011 9:47 CDT Ocular Health Ocular Health Ext Rt Eye Grid Ext Rt Eye - Lids/Lashes: Normal Ext Rt Eye - Conjunctiva: Normal Ext Rt Eye - Cornea: Normal Ext Rt Eye - A/C: Normal Ext Rt Eye - Iris: Normal Ext Rt Eye - Lens: Normal ISRAEL PRINGLE MD - 03/26/2011 10:31 CDT Ocular Health Ext Lt Eye Grid Ext Lt Eye - Lids/Lashes: Normal Ext Lt Eye - Conjunctiva: Normal Ext Lt Eye - Cornea: Normal Ext Lt Eye - A/C: Normal Ext Lt Eye - Iris: Normal Ext Lt Eye - Lens: Normal ISRAEL PRINGLE MD - 03/26/2011 10:31 CDT Ocular Health Int Rt Eye Grid Int Rt Eye - Vitreous: Normal Int Rt Eye - C/D: Normal (Comment: 0.25, sl tilted [ISRAEL PRINGLE MD - 03/26/2011 10:31 CDT] ) Int Rt Eye - Margins: Normal Int Rt Eye - Color: Normal Int Rt Eye - Macula: Normal Int Rt Eye - Posterior Pole: Normal Int Rt Eye - Periphery: Normal Int Rt Eye - Vessels: Normal ISRAEL PRINGLE MD - 03/26/2011 10:31 CDT Ocular Health Int Lt Eye Grid Int Lt Eye - Vitreous: Normal Int Lt Eye - C/D: Normal (Comment: 0.3, sl pale, sl tilted [ISRAEL PRINGLE MD - 03/26/2011 10:31 CDT] ) Int Lt Eye - Margins: Normal Int Lt Eye - Color: Normal Int Lt Eye - Macula: Normal Int Lt Eye - Posterior Pole: Normal Int Lt Eye - Periphery: Normal Int Lt Eye - Vessels: Normal ISRAEL PRINGLE MD - 03/26/2011 10:31 CDT Assessment: Stable, s/p pituitary adenoma Slight pallor of left nerve; otherwise normal Will no perform field here today as is being done at [facility]. Next Visit: F/U 1 year New MR new Armand ISRAEL PRINGLE MD - 03/26/2011 10:31 CDT Source: [employer] Document Id: [id number] documented in this encounter Plan of Treatment Not on filedocumented as of this encounter Visit Diagnoses Not on filedocumented in this encounter
--- OUTSIDE RECORDS SUMMARY | 2022-08-04 08:20 | XMS_ITS | Encounter Summary ---
:1955 Author Organization [facility] Address [address] [place] [address] Care Team Providers Name Role Phone Jason Yu M.D. Primary Care Provider Reason for Visit Reason Onset Date Comments Pre-visit Testing Orders 05/05/2018 Encounter Details Date Type Department Care Team Description 05/05/2018 Clinical Communication Breast Diagnostic Emeterio, Pre-visit Testing Clinic in [place] Orders [place], [address] [place], [place] [address] [facility] [address] [place], [place] [phone] (Work) [phone] Social History Tobacco Use Types Packs/Day Years [...] How often do you attend taoist or roman catholic More than 4 time [...] or slept in a long-term (including now)? Sex Assigned at Date Recorded Female 06/28/2018 6:37 PM CDT documented as of this encounter Miscellaneous Notes Telephone Encounter - Lyly Myers - 05/05/2018 9:53 AM CDT 06/29/18 orders please, this is a former Dr. Delgadillo pt. documented in this encounter Plan of Treatment [...] TOMOSYNTHESIS Current study was evaluated with a [employer] Aided Detection (CAD) system. INDICATION: ??Screening [...] TOMOSYNTHESIS Current study was evaluated with a [employer] Aided Detection (CAD) system. INDICATION: Screening mammogram. [...] Diagnosis Cancer Breast Personal History - Primary Cancer Breast Personal History documented in this encounter Care Teams Engineering Assistant Relationship Specialty Start Date End Date Jason Yu M.D. PCP - General 04/01/17 06/09/[address] [place] [id number] documented as of this encounter
--- OUTSIDE RECORDS SUMMARY | 2022-08-04 08:20 | XMS_ITS | Encounter Summary ---
:1955 Author Organization [facility] Address [address] [place] [address] Care Team Providers Name Role Phone Darryl Stallings M.D. Primary Care Provider [phone] Encounter Details Date Type Department Care Team Description 12/09/2011 Historical Ophthalmology RST OPH Juan Daniel Alfaro [...] How often do you attend latter-day or adventist More than 4 time s per year [...] encounter Progress Notes Romy Alfaro M.D. - 12/09/2011 8:18 AM CST Eye General CHIEF COMPLAINT Blurred spot left eye HISTORY OF PRESENT ILLNESS Blurred spot; left eye; constant; since 2003; JAL: No noticeable changes in eyesight since last year. Her says that once she mentionns possible vision slipping. She brought the 11/29/03 preop vfs - will have scanned into her EMR. The burrell are much better OU asisthe foveal threshold OS. IMPRESSION / REPORT / PLAN #1 Pituitary tumor, with ocular findings. Decreased vision and color Va OS - stable. #2 Visual field report, temporal hemianopia superior left eye, mild improvement. Foveal threshold 36 OD, 35 OS. Gave her today's burrell. #3 Optic atrophy left eye. DIAGNOSIS #1 Pituitary tumor, with ocular findings. 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 CDM Reports - EYEGEN Id: [id number] Status: Fnl documented in this encounter Plan of Treatment Not on filedocumented as of this encounter Visit Diagnoses Not on filedocumented in this encounter Care Teams Dairy Chemist Relationship Specialty Start Date End Date Darryl Stallings M.B.B.S., M.D. PCP - General Family Medicine 06/10/[address] [place] [address] SABINO Castellano [phone] documented as of this encounter
--- OUTSIDE RECORDS SUMMARY | 2022-08-04 08:20 | XMS_ITS | Encounter Summary ---
:1955 Author Organization [facility] Address [address] [place] [address] Care Team Providers Name Role Phone Unavailable Primary Care Provider Unavailable Encounter Details Date Type Department Care Team Description 08/06/2011 Hospital Encounter HX [facility] Shukri Michaels Jr., M.D. [address] [place] [address] (Wo rk) Social History Tobacco [...] or relatives? How often do you attend congregation or roman catholic More than 4 time s per year 04/19/2022 services? Do you belong to any clubs or organizations Yes 04/19/2022 such as congregation groups, unions, fraternal or athletic groups, or [...]
--- OUTSIDE RECORDS SUMMARY | 2022-08-04 08:20 | XMS_ITS | Encounter Summary ---
:1955 Author Organization [facility] Address [address] [place] [address] Care Team Providers Name Role Phone Jason Yu M.D. Primary Care Provider Encounter Details Date Type Department Care Team Description 09/28/2017 Orders Only Department of Jason Yu Cardiac Vas cular Disease Screening (Primary Dx); [facility] Alek Salazar Screening Examination Diabetes Mellitus; Medicine in [address] Screening Mammogram Average Risk Patient [place], [place] [address] [facility] [address] [place], [place] [phone] (Work) [phone] Social History Tobacco Use Types Packs/Day Years [...] or relatives? How often do you attend jain or restorationist More than 4 time s per year 04/19/2022 services? Do you belong to any clubs or organizations Yes 04/19/2022 such as jain groups, unions, fraternal or athletic groups, or [...] slept in a group home (including now)? Sex Assigned at Date Recorded Female 06/28/2018 6:37 PM CDT documented as of this encounter Plan of Treatment Not on filedocumented as of this encounter Visit Diagnoses Diagnosis Cardiac Vascular Disease Screening - [facility] Screening Examination Diabetes Mellitus Screening Mammogram Average Risk Patient documented in this encounter Care Teams Collision Estimator Relationship Specialty Start Date End Date Jason Yu M.D. PCP - General 04/01/17 06/09/[address] [place] [id number] documented as of this encounter
--- OUTSIDE RECORDS SUMMARY | 2022-08-04 08:20 | XMS_ITS | Encounter Summary ---
:1955 Author Organization [facility] Address [address] [place] [address] Care Team Providers Name Role Phone Darryl Stallings M.D. Primary Care Provider [phone] Reason for Referral Outpatient (Routine) - Closed Specialty Diagnoses / Procedures Referred By Contact Refer red To Contact Diagnoses Other Specified Disorders Of Bone Density And Structure Unspecified Site [facility] Procedures BMD Bone Density Spine Hips ME DEXA BONE DENSITY AXIAL HC DEXA BONE DENSITY AXIAL ME DEXA BONE DENSITY AXIAL P.A.-C. [address] [place], [place] [address] Referral ID Status Reason Start Date Expiration Date Visits Requ ested Visits Authorized [id number] Closed 01/27/2018 07/26/2018 1 1 Reason for Visit Outpatient (Routine) - Closed Specialty Diagnoses / Procedures Referred By Contact Refer red To Contact Diagnoses Other Specified Disorders Of Bone Density And Structure Unspecified Site Corinne Coley [facility] Procedures BMD Bone Density Spine Hips ME DEXA BONE DENSITY AXIAL HC DEXA BONE DENSITY AXIAL ME DEXA BONE DENSITY AXIAL P.A[facility]C. [address] [place], [place] [address] Referral ID Status Reason Start Date Expiration Date Visits Requ ested Visits Authorized [id number] Closed 01/27/2018 07/26/2018 1 1 Encounter Details Date Type Department Care Team Description 06/21/2018 Hospital Encounter Department of Corinne Coley r Specified Radiology, Martínez Newby P.A.-C. Disorders Of Bone Building, in [address] [place] [address] [facility] [address] Unspecified Site [address] [place] [address] [place], [place] (Work) [phone] [phone] Social History Tobacco Use Types Packs/Day Years [...] or relatives? How often do you attend orthodox or druze More than 4 time s per year 04/19/2022 services? Do you belong to any clubs or organizations Yes 04/19/2022 such as orthodox groups, unions, fraternal or athletic groups, [...] slept in a senior care (including now)? Sex Assigned at Date Recorded [...] Name Priority Date/Time Associated Diagnosis Comme nts BMD BONE DENSITY Routine 06/21/2018 10:13 AM Other Specified R esults for this SPINE HIPS CDT Disorders Of Bone procedure are in Density And the results Structure section. Unspecified Site documented in this encounter Results BMD Bone Density Spine Hips (06/21/2018 10:13 AM CDT) Anatomical Region Laterality Modality Hip, Lumbar Spine, Nuclear Medicine RST LOS N/A Radiographic Imaging Specimen (Source) Anatomical Collection Method Collection Time Re ceived Time Location / / Volume Laterality 06/21/2018 10:16 AM CDT Impressions 06/21/2018 10:16 AM CDT IMPRESSION: Osteopenia Narrative 06/21/2018 10:16 AM CDT EXAM: ??BMD BONE DENSITY SPINE HIPS COMPARISON: Serial Comparisons Left Total Hip results: ?11/24/2010 ?BMD: ??0.820 g/cm( sq), T Score: -1.5 ?01/13/2012 ?BMD: ??0.814 g/cm( sq), T Score: -1.6 ?01/16/2013 ?BMD: ??0.836 g/cm( sq), T Score: -1.4 ?02/11/2015 ?BMD: ??0.797 g/cm( sq), T Score: -1.7 ?06/30/2016 ?BMD: ??0.773 g/cm( sq), T Score: -1.9 ?06/21/2018 ?BMD: ??0.754 g/cm( sq), T Score: -2.0 ?Change vs. Previous (difference): ? -0.019 g/cm(sq) ?Change vs. Previous (%): ??-2.5% ?The least significant change in BM D for the Total Hip ?is 0.036 g/cm(sq) ?The absolute BMD change from previ ous, ??0.019g/cm(sq), is ?less than the least significant ch [...] ?BMD: ??0.811 g/cm( sq), T Score: -1.6 ?Change vs. Previous (difference): ? -0.006 g/cm(sq) ?Change vs. Previous (%): ??-0.7% ?The least significant change in BM D for the Total Hip ?is 0.036 g/cm(sq) ?The absolute BMD change from previ ous, ??0.006g/cm(sq), is ?less than the least significant ch jesus alberto. ?The absolute BMD change from basel ine, ??0.048g/cm(sq), is ?greater than the least significant change. Combined Total Hip results: ?11/24/2010 ?BMD: ??0.840 g/cm( sq), T Score: -1.3 ?01/13/2012 ?BMD: ??0.837 g/cm( sq), T Score: -1.4 ?01/16/2013 ?BMD: ??0.845 g/cm( sq), T Score: -1.3 ?02/11/2015 ?BMD: ??0.817 g/cm( sq), T Score: -1.6 ?06/30/2016 ?BMD: ??0.795 g/cm( sq), T Score: -1.7 ?06/21/2018 ?BMD: ??0.783 g/cm( sq), T Score: -1.8 ?Change vs. Previous (difference): ? -0.013 g/cm(sq) ?Change vs. Previous (%): ??-1.6% ?The least significant change in BM D for the Total Hip ?is 0.036 g/cm(sq) ?The absolute BMD change from previ ous, ??0.013g/cm(sq), is ?less than the least significant ch jesus alberto. ?The absolute BMD change from basel ine, ??0.057g/cm(sq), is ?greater than the least significant change. Spine results: ?11/24/2010 ?BMD: ??0.951 g/cm( sq), T Score: -2.0 ?01/13/2012 ?BMD: ??0.960 g/cm( sq), T Score: -1.9 ?01/16/2013 ?BMD: ??0.961 g/cm( sq), T Score: -1.9 ?02/11/2015 ?BMD: ??0.932 g/cm( sq), T Score: -2.1 ?06/30/2016 ?BMD: ??0.912 g/cm( sq), T Score: -2.3 ?06/21/2018 ?BMD: ??0.911 g/cm( sq), T Score: -2.3 ?Change vs. Previous (difference): ? -0.001 g/cm(sq) ?Change vs. Previous (%): ??-0.1% ?The least significant change in BM D for the Spine is 0.041 g/cm(sq) ?The absolute BMD change from previ ous, ??0.001g/cm(sq), is ?less than the least significant ch jeuss alberto. ?The absolute BMD change from basel ine, ??0.039g/cm(sq), is ?less than the least significant ch jesus alberto. FINDINGS: Left Hip [single scan]: ?Femur Neck: BMD = ??0.767 g/cm (sq ) ?T-score = -2.0 ?Z-score = - 0.6 ?Total Hip: BMD = ??0.754 g/cm (sq) ?T-score = -2.0 ?Z-score = - 0.9 Right Hip [single scan]: ?Femur Neck: BMD = ??0.844 g/cm (sq ) ?T-score = -1.4 ?Z-score = ? ?0.0 ?Total Hip: BMD = ??0.811 g/cm (sq) ?T-score = -1.6 ?Z-score = - 0.5 Lumbar Spine ??[single scan]: ?L1: BMD = 0.896 g/cm (sq), T-score =-2.0, Z-score =-0.5 ?L2: BMD = 0.865 g/cm (sq), T-score =-2.8, Z-score =-1.4 ?L3: BMD = 0.949 g/cm (sq), T-score =-2.1, Z-score =-0.7 ?L4: BMD = 0.929 g/cm (sq), T-score =-2.3, Z-score =-0.8 ?Total Lumbar Spine: BMD = ??0.911 g/cm (sq) ?T-score = -2.3 ?Z-score = - 0.8 Trabecular Bone Scores: ?L1-L4: TBS = 1.315 Please note: A more comprehensive DXA re port, including images and graphs, is available in [employer]. ?In the absence of other causes of [...] of fracture is: FRAX Score Major Osteoporotic: 9.0% Hip Fracture: ? 1.4% Procedure Note Abdias Glez M.D. - 06/21/2018Formatt ing of this note might be different from [...] BMD: 0.754 g/cm(sq), T Score : -2.0 Change vs. Previous (difference): -0.01 9 g/cm(sq) Change vs. Previous (%): -2.5% The least significant change in BMD for the Total Hip is 0.036 g/cm(sq) The absolute BMD change from previous, 0.019g/cm(sq), is less than the least significant change. [...] BMD: 0.811 g/cm(sq), T Score : -1.6 Change vs. Previous (difference): -0.00 6 g/cm(sq) Change vs. Previous (%): -0.7% The least significant change in BMD for the Total Hip is 0.036 g/cm(sq) The absolute BMD change from previous, 0.006g/cm(sq), is less than the least significant change. The absolute BMD change from baseline, 0.048g/cm(sq), is greater than the least significant méndez ge. Combined Total Hip results: 11/24/2010 BMD: 0.840 g/cm(sq), T Score : -1.3 01/13/2012 BMD: 0.837 g/cm(sq), T Score : -1.4 01/16/2013 BMD: 0.845 g/cm(sq), T Score : -1.3 02/11/2015 BMD: 0.817 g/cm(sq), T Score : -1.6 06/30/2016 BMD: 0.795 g/cm(sq), T Score : -1.7 06/21/2018 BMD: 0.783 g/cm(sq), T Score : -1.8 Change vs. Previous (difference): -0.01 3 g/cm(sq) Change vs. Previous (%): -1.6% The least significant change in BMD for the Total Hip is 0.036 g/cm(sq) The absolute BMD change from previous, 0.013g/cm(sq), is less than the least significant change. The absolute BMD change from baseline, 0.057g/cm(sq), is greater than the least significant méndez ge. Spine results: 11/24/2010 BMD: 0.951 g/cm(sq), T Score : -2.0 01/13/2012 BMD: 0.960 g/cm(sq), T Score : -1.9 01/16/2013 BMD: 0.961 g/cm(sq), T Score : -1.9 02/11/2015 BMD: 0.932 g/cm(sq), T Score : -2.1 06/30/2016 BMD: 0.912 g/cm(sq), T Score : -2.3 06/21/2018 BMD: 0.911 g/cm(sq), T Score : -2.3 Change vs. Previous (difference): -0.00 1 g/cm(sq) Change vs. Previous (%): -0.1% The least significant change in BMD for the Spine is 0.041 g/cm(sq) The absolute BMD change from previous, 0.001g/cm(sq), is less than the least significant change. The absolute BMD change from baseline, 0.039g/cm(sq), is less than the least significant change. FINDINGS: Left Hip [single scan]: Femur Neck: BMD = 0.767 g/cm (sq) T-score = -2.0 Z-score = -0.6 Total Hip: BMD = 0.754 g/cm (sq) T-score = -2.0 Z-score = -0.9 Right Hip [single scan]: Femur Neck: BMD = 0.844 g/cm (sq) T-score = -1.4 Z-score = 0.0 Total Hip: BMD = 0.811 g/cm (sq) T-score = -1.6 Z-score = -0.5 Lumbar Spine [single scan]: L1: BMD = 0.896 g/cm (sq), T-score =-2. 0, Z-score =-0.5 L2: BMD = 0.865 g/cm (sq), T-score =-2. 8, Z-score =-1.4 L3: BMD = 0.949 g/cm (sq), T-score =-2. 1, Z-score =-0.7 L4: BMD = 0.929 g/cm (sq), T-score =-2. 3, Z-score =-0.8 Total Lumbar Spine: BMD = 0.911 g/cm (s q) T-score = -2.3 Z-score = -0.8 Trabecular Bone Scores: L1-L4: TBS = 1.315 Please note: A more comprehensive DXA re port, including images and graphs, is available in [employer]. In the absence of other causes of [...] [facility]. Based on the bone density results, and o n the patient's answers to the Fracture Risk Assessment questionnaire (please refer to appropria te image stored in the BMD study in [employer]), the calculated ten year probability of fracture is: FRAX Score Major Osteoporotic: 9.0% Hip Fracture: 1.4% IMPRESSION: Osteopenia Corinne GODFREY DXA PROCEDURES documented in this encounter Visit Diagnoses Diagnosis Other Specified Disorders Of Bone Densit y And Structure Unspecified Site documented in this encounter Care Teams Collections Officer Relationship Specialty Start Date End Date Darryl Stallings M.B.B.S., M.D. PCP - General Family Medicine 06/10/[address] [place] [phone] documented as of this encounter
--- OUTSIDE RECORDS SUMMARY | 2022-08-04 08:20 | XMS_ITS | Encounter Summary ---
:1955 Author Organization [facility] Address [address] [place] [address] Care Team Providers Name Role Phone Unavailable Primary Care Provider Unavailable Encounter Details Date Type Department Care Team Description 03/30/2011 Hospital Encounter HX [facility] CV-Shukri Guerrero Jr., M.D. [address] [place] [address] (Wo rk) Social History Tobacco [...] or relatives? How often do you attend hindu or oriental orthodox More than 4 time s per year 04/19/2022 services? Do you belong to any clubs or organizations Yes 04/19/2022 such as hindu groups, unions, fraternal or athletic groups, or [...] or slept in a snf (including now)? Sex Assigned at Date Recorded [...]
--- OUTSIDE RECORDS SUMMARY | 2022-08-04 08:20 | XMS_ITS | Encounter Summary ---
:1955 Author Organization [facility] Address [address] [place] [address] Care Team Providers Name Role Phone Unavailable Primary Care Provider Unavailable Encounter Details Date Type Department Care Team Description 10/23/2013 Hospital Encounter HX [facility] Israel Guerrero Jr., M.D. [address] [phone] (Wo rk) Social History Tobacco [...] How often do you attend orthodox or sikhism More than 4 time s [...] documented as of this encounter Progress Notes Reba Us - 10/23/2013 1:23 PM CST [facility] Exam [facility] Exam Entered On: 10/23/2013 13:49 PRINTING MACHINE OPERATOR TAPE RULES Performed On: 10/23/2013 13:23 PRINTING MACHINE OPERATOR TAPE RULES by REBA US Chief Complaint and History Chief Complaint : Routine exam, CL exam/recheck Pain Symptoms : No Smoking Status : Never smoker Comment : Pt is here for routine exam with contact lens eval. No problems noted. REBA US - 10/23/2013 13:23 PRINTING MACHINE OPERATOR TAPE RULES Optometry Exam Familty History Grid Cataract : Father Cancer : Self, h/o breast cancer x 2008, s/p lumpectomy, radiation therapy and tamoxifen Neurologic : Self, h/o pituitary adenoma x 2003, s/p resection w/optic atrophy OS, followed by [facility] Stroke : Mother REBA US - 10/23/2013 13:23 PRINTING MACHINE OPERATOR TAPE RULES Vision Testing Right Eye Vision Testing : Contacts, 20/20 Left Eye Vision Testing : Contacts, 20/40, -2 REBA US - 10/23/2013 13:23 PRINTING MACHINE OPERATOR TAPE RULES Refraction Current Glasses Rx Grid Glasses/RE Glasses/LE Sphere : -5.50 -6.00 CYL : +0.75 +1.25 [place] : 012 150 ADD : +1.75 +1.75 REBA US - 10/23/2013 13:23 PRINTING MACHINE OPERATOR TAPE RULES REBA US - 10/23/2013 13:23 PRINTING MACHINE OPERATOR TAPE RULES Current Contact Lens Rx Grid Contact Lens RE Contact Lens LE Type : Biofinity Toric Biofinity Toric BC : 8.7 8.7 Sphere : -4.25 -4.25 CYL : -0.75 -0.75 [place] : [phone] Diameter : 14.5 14.5 Comment : [facility]- contacts [facility] well ou REBA US - 10/23/2013 13:23 PRINTING MACHINE OPERATOR TAPE RULES REBA US - 10/23/2013 13:23 PRINTING MACHINE OPERATOR TAPE RULES Contact Lens Care Grid Contact Lens Care Row Hours Worn per Day : 14 Days Worn per Week : 7 Overnight Wear : No Replacement Schedule : 4 week Solution Used : REBA Chan - 10/23/2013 13:23 PRINTING MACHINE OPERATOR TAPE RULES Right Eye Manifest Grid Date : 07/14/2012 CDT 10/23/2013 PRINTING MACHINE OPERATOR TAPE RULES Performed by : Provider Tech Sphere : -5.50 -5.75 CYL : +0.75 +0.25 [place] : 10 010 Visual Acuity Distance : 20/20 20/20 ADD : +2.50 +2.50 Visual Acuity Near : Other: 20/20 OU REBA US - 10/23/2013 13:23 PRINTING MACHINE OPERATOR TAPE RULES REBA US - 10/23/2013 13:23 PRINTING MACHINE OPERATOR TAPE RULES Left Eye Manifest Grid Date : 07/14/2012 CDT 10/23/2013 PRINTING MACHINE OPERATOR TAPE RULES Performed by : Provider Tech Sphere : -6.00 -5.50 CYL : +1.25 +1.25 [place] : 135 135 Visual Acuity Distance : 20/40, -1 20/40, -2 ADD : +2.50 +2.50 REBA US - 10/23/2013 13:23 PRINTING MACHINE OPERATOR TAPE RULES REBA US - 10/23/2013 13:23 PRINTING MACHINE OPERATOR TAPE RULES Ocular Testing EOMS : Normal Comment : 4-2 4-2 -mg Confrontation [place] : RE Normal, LE Normal REBA US - 10/23/2013 13:23 PRINTING MACHINE OPERATOR TAPE RULES Intraoccular Pressures Intraoccular Pressures Grid Date : 07/14/2012 CDT 10/23/2013 PRINTING MACHINE OPERATOR TAPE RULES 10/23/2013 PRINTING MACHINE OPERATOR TAPE RULES Eye : RE LE Applanation : 16 18 Virgil Pen : OD 16 OS 15 Eye Drops : Other: 0.5% Proparacaine OU @ 0922 REBA US - 10/23/2013 13:23 PRINTING MACHINE OPERATOR TAPE RULES REBA US - 10/23/2013 13:23 PRINTING MACHINE OPERATOR TAPE RULES [place] USNDY M - 10/23/2013 13:23 PRINTING MACHINE OPERATOR TAPE RULES Eye Drops Exam Other Medication Eye Drops : no dil [place] USNDY M - 10/23/2013 13:23 PRINTING MACHINE OPERATOR TAPE RULES Ocular Health Ocular Health Ext Rt Eye Grid Ext Rt Eye - Lids/Lashes : Normal (Comment: meibomian glands a little pouty [ISRAEL MICHAELS MD - 10/23/2013 14:14 PRINTING MACHINE OPERATOR TAPE RULES] ) Ext Rt Eye - Conjunctiva : Normal Ext Rt Eye - Cornea : Normal Ext Rt Eye - A/C : Normal Ext Rt Eye - Iris : Normal Ext Rt Eye - Lens : Normal ISRAEL MICHAELS MD - 10/23/2013 14:14 PRINTING MACHINE OPERATOR TAPE RULES Ocular Health Ext Lt Eye Grid Ext Lt Eye - Lids/Lashes : Normal (Comment: meibrominan glands a little pouty [ISRAEL MICHAELS MD - 10/23/2013 14:14 PRINTING MACHINE OPERATOR TAPE RULES] ) Ext Lt Eye - Conjunctiva : Normal Ext Lt Eye - Cornea : Normal Ext Lt Eye - A/C : Normal Ext Lt Eye - Iris : Normal Ext Lt Eye - Lens : Normal ISRAEL MICHAELS MD - 10/23/2013 14:14 PRINTING MACHINE OPERATOR TAPE RULES Ocular Health Int Rt Eye Grid Int Rt Eye - Vitreous : Normal Int Rt Eye - C/D : Normal (Comment: 0.25 [ISRAEL MICHAELS MD - 10/23/2013 14:14 PRINTING MACHINE OPERATOR TAPE RULES] ) Int Rt Eye - Margins : Normal Int Rt Eye - Color : Normal Int Rt Eye - Macula : Normal Int Rt Eye - Posterior Pole : Normal Int Rt Eye - Periphery : Normal Int Rt Eye - Vessels : Normal ISRAEL MICHAELS MD - 10/23/2013 14:14 PRINTING MACHINE OPERATOR TAPE RULES Ocular Health Int Lt Eye Grid Int Lt Eye - Vitreous : Normal Int Lt Eye - C/D : Normal (Comment: 0.3 sl pallor [ISRAEL MICHAELS MD - 10/23/2013 14:14 PRINTING MACHINE OPERATOR TAPE RULES] ) Int Lt Eye - Margins : Normal Int Lt Eye - Color : Normal Int Lt Eye - Macula : Normal Int Lt Eye - Posterior Pole : Normal Int Lt Eye - Periphery : Normal Int Lt Eye - Vessels : Normal ISRAEL MICHAELS MD - 10/23/2013 14:14 PRINTING MACHINE OPERATOR TAPE RULES Assessment Findings : Other: Stable eye examination, OK to continue CL/glasses. Consider artificial tear lubricant at bedtime, Plan : Gave patient copy of spectacle Rx, Gave patient copy of contact lens Rx, Return for complete exam in one year or PRN ISRAEL MICHAELS MD - 10/23/2013 14:14 PRINTING MACHINE OPERATOR TAPE RULES Source: [facility] [employer] Document Id: [id number] PRINTING MACHINE OPERATOR TAPE RULES!36 TING MACHINE OPERATOR TAPE RULES documented in this encounter Plan of Treatment Not on filedocumented as of this encounter Visit Diagnoses Not on filedocumented in this encounter
--- OUTSIDE RECORDS SUMMARY | 2022-08-04 08:20 | XMS_ITS | Encounter Summary ---
:1955 Author Organization [facility] Address [address] [place] [address] Care Team Providers Name Role Phone Darryl Stallings M.D. Primary Care Provider [phone] Reason for Referral MRI/CAT/PET Scan (Routine) - Closed Specialty Diagnoses / Procedures Referred By Contact Refer red To Contact Radiology Diagnoses Osteopenia Adenoma Pituitary [facility] without and with IV Contrast P.A.-C. [address] [place] [address] Referral ID Status Reason Start Date Expiration Date Visits Requ ested Visits Authorized [id number] Closed 01/30/2018 07/29/2018 1 1 Reason for Visit MRI/CAT/PET Scan (Routine) - Closed Specialty Diagnoses / Procedures Referred By Contact Refer red To Contact Radiology Diagnoses Osteopenia [facility]enoma Pituitary [facility]) [facility] MR Brain without and with IV Contrast P.A.-C. [address] [place], [place] [address] Referral ID Status Reason Start Date Expiration Date Visits Requ ested Visits Authorized [id number] Closed 01/30/2018 07/29/2018 1 1 Encounter Details Date Type Department Care Team Description 06/21/2018 Hospital Encounter Department of Corinne Coley; Radiology, Ryan S, P.A.-C. Adenoma Pituitary (HCC) [place], [place] [address] [facility] [phone] [address] [facility] [phone] [place], [place] (Work) [phone] Social History Tobacco Use Types Packs/Day Years [...] or relatives? How often do you attend evangelical or yarsanism More than 4 time s per year 04/19/2022 services? Do you belong to any clubs or organizations Yes 04/19/2022 such as evangelical groups, unions, fraternal or athletic groups, or [...] or slept in a jail (including now)? Sex Assigned at Date Recorded Female 06/28/2018 6:37 PM CDT documented as of this encounter Last Filed Vital Signs Vital Sign Reading Time Taken Comments Blood Pressure - - Pulse - - Temperature - - Respiratory Rate - - Oxygen Saturation - - Inhaled Oxygen Concentration - - Weight 61.2 kg (135 lb) 06/21/2018 10:32 AM CDT Height 175.3 cm (5' 9) 06/21/2018 10:32 AM CDT Body Mass Index 19.94 06/21/2018 10:32 AM CDT documented in this encounter Medications at Time of Discharge [...] Procedure Name Priority Date/Time Associated Comments Diagnosis MR BRAIN WITHOUT RAD - Routine 06/21/2018 11:21 Osteopenia Results for this AND WITH IV (most inpatients AM CDT Adenoma Pituitary proced ure are in CONTRAST and all (HCC) the results outpatients) section. documented in this encounter Results MR Brain without and with IV Contrast (06/21/2018 11:21 AM CDT) Anatomical Region Laterality Modality Head, Brain, Neuroradiology RST LOS N/A Magn eti Resonance Specimen (Source) Anatomical Collection Method Collection Time Re ceived Time Location / / Volume Laterality 06/21/2018 1:22 PM CDT Impressions 06/21/2018 2:33 PM CDT IMPRESSION: Stable to minimal interval decrease in size of residual pituitary adenoma along the right lateral aspect o f the sella turcica with otherwise stable right cavernous sinus when compar ed to multiple prior examinations, as above. Narrative 06/21/2018 2:33 PM CDT EXAM: MR BRAIN WITHOUT AND WITH IV CONTRAST COMPARISON: Multiple brain MRI exams inc luding exams dated 06/30/2017, 06/25/2014, 05/04/2006, and 03/26/2004. 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 Stable there the re is evidence for overall slight decrease in size of residual pituitary g land along the right lateral aspect of the sella, when compared to 06/30/2016, and similar to that evident on the 11/18/2012 exam. Stable expanded, partia lly empty sella. Stable right cavernous sinus component. Stable leftward deviati on of the pituitary stalk, with normal enhancing pituitary gland tissue along t he left lateral margin of the sella turcica. Stable small cystic abnormality along the floor of the right sella allowing for differences in hazardous materials waste technician nique, which has varied slightly in appearance across multiple exams. No new or enlarging abnormality. Mild age commensurate brain parenchymal volume lo ss. Minor white matter signal abnormality likely reflecting chronic mi crovascular angiopathic change. No mass effect or midline shift. Procedure Note Mohan Restrepo M.D. - 06/21/2018Format ting of this note might be different from the original. EXAM: MR BRAIN WITHOUT AND WITH IV CONTR AST COMPARISON: Multiple brain MRI exams inc luding exams dated 06/30/2017, 06/25/2014, 05/04/2006, and 03/26/2004. 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 Stable there the re is evidence for overall slight decrease in size of residual pituitary g land along the right lateral aspect of the sella, when compared to 06/30/2016, and similar to that evident on the 11/18/2012 exam. Stable expanded, partia lly empty sella. Stable right cavernous sinus component. Stable leftward deviati on of the pituitary stalk, with normal enhancing pituitary gland tissue along t he left lateral margin of the sella turcica. Stable small cystic abnormality along the floor of the right sella allowing for differences in hazardous materials waste technician nique, which has varied slightly in appearance across multiple exams. No new or enlarging abnormality. Mild age commensurate brain parenchymal volume lo ss. Minor white matter signal abnormality likely reflecting chronic mi crovascular angiopathic change. No mass effect or midline shift. IMPRESSION: Stable to minimal interval d ecrease in size of residual pituitary adenoma along the right lateral aspect o f the sella turcica with otherwise stable right cavernous sinus when compar ed to multiple prior examinations, as above. Corinne Coley P.A.-C. [facility] MRI PROCEDURES documented in this encounter Visit Diagnoses Diagnosis Osteopenia Adenoma Pituitary (HCC) documented in this encounter Administered Medications Inactive Administered Medications - up to 3 most recent administrations Medication Order MAR Action Action Date Dose Rate Site gadobutrol injection 0.5-15 mL Given 06/21/2018 11:21 AM CDT 7 m L (GADAVIST) 0.5-15 mL, intravenous, Once in imaging, contrast, Starting on Wed06/21/18 at 1032, For 1 dose, Imaging Protocol Orders, Dose per Radiant Medication Guidelines documented in this encounter Care Teams Construction Administrator Relationship Specialty Start Date End Date Darryl Stallings M.B.B.S., M.D. PCP - General Family Medicine 06/10/18 [address] [facility] [address] [place] [address] documented as of this encounter
--- OUTSIDE RECORDS SUMMARY | 2022-08-04 08:20 | XMS_ITS | Encounter Summary ---
:1955 Author Organization [facility] Address [address] [place] [address] Care Team Providers Name Role Phone Unavailable Primary Care Provider Unavailable Encounter Details Date Type Department Care Team Description 12/22/2010 Hospital Encounter HX [facility] Loc Santana Jr., M.D. [address] [phone] (Wo rk) Social History [...] or relatives? How often do you attend caodaism or adventism More than 4 time s per year 04/19/2022 services? Do you belong to any clubs or organizations Yes 04/19/2022 such as caodaism groups, unions, fraternal or athletic groups, or [...] or slept in a alf (including now)? Sex Assigned at Date Recorded [...]
--- OUTSIDE RECORDS SUMMARY | 2022-08-04 08:20 | XMS_ITS | Encounter Summary ---
:1955 Author Organization [facility] Address [address] [place] [address] Care Team Providers Name Role Phone Jason Yu M.D. Primary Care Provider Reason for Referral Outpatient (Routine) - Closed Specialty Diagnoses / Procedures Referred By Contact Refer red To Contact Endocrinology Corinne Coley P.A.-C. [facility] [address] [place] [address] Referral ID Status Reason Start Date Expiration Date Visits Requ ested Visits Authorized [id number] Closed 02/04/2018 08/03/2018 1 1 Outpatient (Routine) - Closed Specialty Diagnoses / Procedures Referred By Contact Refer red To Contact Diagnoses Other Specified Disorders Of Bone Density And Structure Unspecified Site [facility] Procedures BMD Bone Density Spine Hips [place] DEXA BONE DENSITY AXIAL HC DEXA BONE DENSITY AXIAL [place] DEXA BONE DENSITY AXIAL P.A.-C. [address] [place] [phone] Referral ID Status Reason Start Date Expiration Date Visits Requ ested Visits Authorized [id number] Closed 01/27/2018 07/26/2018 1 1 Encounter Details Date Type Department Care Team Description 01/27/2018 Orders Only Division of Corinne Coley Other Speci fied Disorders Of Bone Density And Structure Unspecified Site; Endocrinology in S, P.A.-C. Tumor Benign Pituitary (HCC) [place], [place] 200 [facility] [address] [place] [phone] Social History Tobacco Use Types Packs/Day Years [...] or relatives? How often do you attend buddhism or holiness More than 4 time s per year 04/19/2022 services? Do you belong to any clubs or organizations Yes 04/19/2022 such as buddhism groups, unions, fraternal or athletic groups, or [...] Name Type Priority Associated Order Schedule Diagnoses Endocrinology office Outpatient Referral Routine Expected: visit (clinic) 06/23/2018 (Approximate), Expires: 02/04/2021 documented as of this encounter Results BMD [...] including images and graphs, is available in Appcelerator. ?In the absence of other causes of [...] image stored in the BMD study in Appcelerator), the calculated ten year probability of fracture [...] including images and graphs, is available in Appcelerator. In the absence of other causes of [...] evidence of skeletal fragility [facility] the [facility]. Based on the bone density results, and o n the patient's answers to the Fracture Risk Assessment questionnaire (please refer to appropria te image stored in the BMD study in QREADS), the calculated ten year probability of fracture is: FRAX Score Major Osteoporotic: 9.0% Hip Fracture: 1.4% IMPRESSION: Osteopenia Corinne Coley P.A.-C. IMG DXA PROCEDURES Cortisol (06/21/2018 9:34 AM CDT) P athologist Signature Cortisol AM 8.0 7 - 25 06/21/2018 [facility] Result mcg/dL 11:26 AM CDT LABORATORIES - [facility] Specimen Anatomical Collection Method Collection Time Receive d Time (Source) Location / / Volume Laterality Blood 06/21/2018 9:34 AM 8 9:54 CDT AM CDT Corinne Coley P.A.-C. LAB BLOOD ADD-ON Performing Organization Address City/[facility]/ZIP Code Phon e Number [facility] LABORATORIES - [address] [place] [address] [facility] Prolactin (06/21/2018 9:34 AM CDT) athologist Signature Prolactin 9.7 4.8 - 23.3 06/21/2018 [facility] Total ng/mL 10:50 AM CDT [facility] Comment: ----ADDITIONAL INFORMATION---- The testing method is an electrochemilum inescence assay manufactured by [employer] and performed on the Josue system. [...] P.A.-C. LAB BLOOD ADD-ON Performing Organization Address City/[facility]/ZIP Code Phon e Number [facility] LABORATORIES - [address] T4 (Thyroxine), Free (06/21/2018 9:34 AM CDT) athologist Signature T4 1.1 0.9 - 1.7 06/21/2018 [facility] (Thyroxine), ng/dL 10:42 AM CDT LABORATORIES - Free, S [facility] Specimen Anatomical Collection Method Collection Time Receive d Time (Source) Location / / Volume Laterality Blood 06/21/2018 9:34 AM 8 9:54 CDT AM CDT Corinne Coley P.A.-C. LAB BLOOD ADD-ON Performing Organization Address City/[facility]/ZIP Code Phon e Number [facility] LAB[facility]ATORIES - [address] [place] [address] [facility] S-TSH (Thyroid-Stimulating Hormone - Sensitive) (06/21/2018 9:34 AM CDT) athologist Signature TSH, Sensitive 1.4 0.3 - 4.2 06/21/2018 [facility] mIU/L 10:41 AM CDT LABORATORIES - [facility] Specimen Anatomical Collection Method Collection Time Receive d Time (Source) Location / / Volume Laterality Blood 06/21/2018 9:34 AM 8 9:54 CDT AM CDT Corinne Coley P.A.-C. LAB BLOOD ADD-ON Performing Organization Address City/[facility]/ZIP Code Phon e Number [facility] LABORATORIES - [address] [address] [facility] Creatinine with Estimated GFR (MDRD) (06/21/2018 9:34 AM CDT) Analysis Performed At [facility] Signature Creatinine 0.81 0.59 - 06/21/2018 [facility] 1.04 mg/dL 10:41 AM CDT LABORATORIES - [facility] eGFR-Non 78 >=60 06/21/2018 [facility] Black/ mL/min/BSA 10:41 AM CDT LABORATORIES - [facility] Comment: ----ADDITIONAL INFORMATION---- Estimated GFR calculated using the 2009 CKD_EPI creatinine equation. eGFR-Black/ 89 >=60 mL/min/BSA 06/21/2018 10:4 1 [facility] Colombian CDT LABORATORIES - [facility] Comment: ----ADDITIONAL INFORMATION---- Estimated GFR calculated using the 2009 CKD_EPI creatinine equation. Specimen Anatomical Collection Method Collection Time Receive d Time (Source) Location / / Volume Laterality Blood 06/21/2018 9:34 AM 8 9:54 CDT AM CDT Corinne Coley P.A.-C. LAB BLOOD ADD-ON Performing Organization Address City/[facility] Code Phon e Number [facility] LABORATORIES - [address] [address] [facility] Calcium, Total (06/21/2018 9:34 AM CDT) athologist Signature Calcium, 9.2 8.8 - 10.2 06/21/2018 [facility] Total, S mg/dL 10:41 AM CDT LABORATORIES - [facility] Specimen Anatomical Collection Method Collection Time Receive d Time (Source) Location / / Volume Laterality Blood 06/21/2018 9:34 AM 8 9:54 CDT AM CDT Corinne Coley P.A.-C. LAB BLOOD ADD-ON Performing Organization Address City/[facility]/ZIP Code Phon e Number [facility] LABORATORIES - [address] [place], [place] [address] [facility] Glucose, Fasting (06/21/2018 9:34 AM CDT) athologist Signature Glucose, P 91 70 - 100 06/21/2018 [facility] mg/dL 10:28 AM CDT [facility] Last Intake 13 hr 06/21/2018 [facility] 9:54 AM CDT [facility] Specimen Anatomical Collection Method Collection Time Receive d Time (Source) Location / / Volume Laterality Blood 06/21/2018 9:34 AM 8 9:54 CDT AM CDT Corinne Coley P.A.-C. LAB BLOOD NON ADD-ON Performing Organization Address City/[facility] Code Phon e Number [facility] LABORATORIES - [address] [place], [place] [address] [facility] 25-Hydroxyvitamin D2 and D3 (06/21/2018 9:34 AM CDT) athologist Signature 25-Hydroxy D2 <4.0 ng/mL 06/22/2018 [facility] 7:10 AM CDT [facility] 25-Hydroxy D3 39 ng/mL 06/22/2018 [facility] 7:10 AM CDT [facility] 25-Hydroxy D 39 ng/mL 06/22/2018 [facility] Total 7:10 AM CDT [facility] Comment: ----REFERENCE VALUE---- 25-HYDROXY D TOTAL (D2+D3) Optimum level s in the healthy population are 20-50, patients with bone disease may benefit from higher levels within this r jesus alberto. ----ADDITIONAL INFORMATION---- This test was developed and its performa nce characteristics determined by [facility] in a manner consistent with CLIA requirements. This test has not been cleared or approved by the [place] d and Drug Administration. Specimen Anatomical Collection Method Collection Time Receive d Time (Source) Location / / Volume Laterality Blood 06/21/2018 9:34 AM 8 CDT 12:57 PM CDT Corinne Coley P.A.-C. LAB BLOOD ADD-ON Performing Organization Address City/State/ZIP Code Phon e Number [facility] [address] [place], [place] [address] [facility] Potassium (06/21/2018 9:34 AM CDT) P athologist Signature Potassium, S 4.4 3.6 - 5.2 06/21/2018 [facility] mmol/L 10:41 AM CDT [facility] Specimen Anatomical Collection Method Collection Time Receive d Time (Source) Location / / Volume Laterality Blood 06/21/2018 9:34 AM 8 9:54 CDT AM CDT Corinne Coley P.A.-C. LAB BLOOD ADD-ON Performing Organization Address City/[facility]/ZIP Code Phon e Number [facility] LAB[facility]ATORIES - [address] [place] [address] [facility] Sodium (06/21/2018 9:34 AM CDT) P athologist Signature Sodium, S 144 135 - 145 06/21/2018 [facility] mmol/L 10:41 AM CDT [facility] Specimen Anatomical Collection Method Collection Time Receive d Time (Source) Location / / Volume Laterality Blood 06/21/2018 9:34 AM 8 9:54 CDT AM CDT Corinne Coley P.A.-C. LAB BLOOD ADD-ON Performing Organization Address City/State/ZIP Code Phon e Number [facility] LABORATORIES - [address] [place] [address] [facility] (ABNORMAL) CBC without Differential (06/21/2018 9:34 AM CDT) [facility] gist Method Time Signature Hemoglobin 14.9 11.6 - 06/21/2018 [facility] 15.0 g/dL 10:19 AM CDT [facility] Hematocrit 45.8 (H) 35.5 - 06/21/2018 [facility] 44.9 % 10:19 AM CDT [facility] Erythrocytes 5.06 3.92 - 06/21/2018 [facility] 5.13 10:19 AM CDT LABORATORIES - x10(12)/L [facility] MCV 90.5 78.2 - 06/21/2018 [facility] 97.9 fL 10:19 AM CDT LABORATORIES - [facility] RBC Distrib 12.9 12.2 - 06/21/2018 [facility] Width 16.1 % 10:19 AM CDT LABORATORIES - [facility] Platelet Count 152 (L) 157 - 371 06/21/2018 [facility] x10(9)/L 10:19 AM CDT LABORATORIES - [facility] Leukocytes 5.6 3.4 - 9.6 06/21/2018 [facility] x10(9)/L 10:19 AM CDT LABORATORIES - [facility] Specimen Anatomical Collection Method Collection Time Receive d Time (Source) Location / / Volume Laterality Blood 06/21/2018 9:34 AM 8 9:54 CDT AM CDT Corinne Coley P.A.-C. LAB BLOOD ADD-ON Performing Organization Address City/State/ZIP Code Phon e Number [facility] LABORATORIES - [address] [place], [place] [address] [facility] documented in this encounter Visit Diagnoses Diagnosis Other Specified Disorders Of Bone Densit y And Structure Unspecified Site Tumor Benign Pituitary (HCC) Other Specified Disorders Of Bone Densit y And Structure Unspecified Site documented in this encounter Care Teams Silk Snapper Relationship Specialty Start Date End Date Jason Yu M.D. PCP - General 04/01/17 06/09/[address] [place] [id number] documented as of this encounter
--- OUTSIDE RECORDS SUMMARY | 2022-08-04 08:20 | XMS_ITS | Encounter Summary ---
:1955 Author Organization [facility] Address [address] [place] [address] Care Team Providers Name Role Phone Jason Yu M.D. Primary Care Provider Reason for Visit Reason Onset Date Comments Pre-visit Testing Orders 05/03/2018 Encounter Details Date Type Department Care Team Description 05/03/2018 Clinical Communication Breast Diagnostic [place], Pre-visit Testing Clinic in [place] Orders [place], [address] [place], [place] [address] [facility] [address] [place], [place] [phone] (Work) [phone] Social History Tobacco Use Types Packs/Day Years [...] How often do you attend anglican or sabianist More than 4 time s [...] Notes Telephone Encounter - Lyly Myers - 05/03/2018 8:12 AM CDT 06/29/18 orders for a mammo please. This is a former Dr. Delgadillo pt. documented in this encounter Plan of Treatment Not on filedocumented as of this encounter Visit Diagnoses Not on filedocumented in this encounter Care Teams Disk Recordist Relationship Specialty Start Date End Date Jason Yu M.D. PCP - General 04/01/17 06/09/[address] [place] [address] [place] [address] documented as of this encounter
--- OUTSIDE RECORDS SUMMARY | 2022-08-04 08:20 | XMS_ITS | Encounter Summary ---
:1955 Author Organization [facility] Address [address] [place] [address] Care Team Providers Name Role Phone Unavailable Primary Care Provider Unavailable Encounter Details Date Type Department Care Team Description 04/29/2012 Hospital Encounter HX [facility] Provider, Hi sj Social History Tobacco Use Types Packs/Day Years [...] How often do you attend confucianist or catholic More than 4 time s per [...]
--- OUTSIDE RECORDS SUMMARY | 2022-08-04 08:20 | XMS_ITS | Encounter Summary ---
:1955 Author Organization [facility] Address [address] [place] [address] Care Team Providers Name Role Phone Darryl Stallings M.D. Primary Care Provider [phone] Reason for Visit Reason Comments Follow-up Appointment Request (Routine) - Closed Specialty Diagnoses / Procedures Referred By Contact Refer red To Contact Breast Clinic Referral ID Status Reason Start Date Expiration Date Visits Requ ested Visits Authorized [id number] Closed 05/03/2018 05/03/2019 1 Encounter Details Date Type Department Care Team Description 06/29/2018 Office Visit Breast Diagnostic Kassie Storm[facility] [address] [place] [phone] Social History Tobacco Use Types Packs/Day Years [...] get together with friends Three times a sangeetha trejo 04/19/2022 or relatives? How often do you attend adventist or cheondoism More than 4 time s per year [...] 60.5 kg (133 lb 6.1 oz) 06/29/2018 2:18 PM CDT Height 174.2 cm (5' 8.58) 06/29/2018 2:18 PM CDT Body Mass Index 19.94 06/29/2018 2:18 PM CDT documented in this encounter Progress Kassie Menchaca M.D. - 06/29/2018 2:30 PM CDT CHIEF COMPLAINT / REASON FOR VISIT Ms. Berumen is a very pleasant 62 y.o. female who returns now for follow up of a history of right breast cancer status post breast conserving therapy diagnosed in 2008. HISTORY OF PRESENT ILLNESS #1 Right breast cancer status post breast conserving therapy diagnosed 2008 #2 Completed systemic therapy #3 Completed adjuvant hormonal therapy with tamoxifen followed by an aromatase inhibitor 1. Ms. Berumen was diagnosed with right breast cancer in 2008. Excisional biopsy showed, by Erickson review, invasive lobular carcinoma, grade II (of III), forming a 1.1- x 0.7- x 0.7-cm mass. No angiolymphatic invasion was present. Margins were negative with the closest margin 1 cm. Estrogen receptors were11% to 25% positive, progesterone receptors were 0% staining, and HER-2/vicente was negative with a score of 1+. ?? 3. May 02, 2009: [place] lymph node biopsy was performed. By outside report, four lymph nodes wereremoved, and all were negative. ?? 4. The patient received adjuvant chemotherapy with her local oncologist in [place], [place]. She received four cycles of Taxotere and cyclophosphamide which she tolerated well with some mild residualperipheral neuropathy. ?? 5. September 2009: Patient completed a course of radiation to the right breast. She received treatment with Dr. Fly Zelaya at [facility]. ?? 6. November 18, 2009: Consultation with Dr. Reinaldo Jarquin, [facility]. Dr. Jarquin recommended endocrine therapy. 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 HER-2/vicente was negative both by IHC and FISH testing. Patient began adjuvant tamoxifen in November 2009. ?? 7. January 2013: Dr. Jarquin discussed the options of continuing with tamoxifen for a full five years orswitch to an aromatase inhibitor and stop at five years total treatment versus ten years of therapy with five years of tamoxifen and five years of letrozole. Because she was very early postmenopausal when she was initially diagnosed with breast cancer, they elected to continue with five years of tamoxifen and then consider five years of an aromatase inhibitor. ?? 8. October 2014: Dr. Jarquin discussed with the patient switching to anastrozole which the patient diddo in October 2014. ?? 9. December 2014: Patient was experiencing joint pain in her knees, hips, and feet. Dr. Jarquin advised stopping the Arimidex and then did transition her to exemestane in January 2015. ?? 10. February 11, 2015: Subsequent visit in Oncology with Su Suresh with Dr. Jarquin as collaborating physician. The patient continued to have some arthralgias as well as some vaginal dryness. Additionally, bone density testing showed osteopenia in the lumbar spine with a T-score of -2. Dr. Jarquin advisedthat the patient could consider discontinuing hormonal therapy at this time given the low ER on her tumor pathology versus continuing on with an aromatase inhibitor for another five years if she is able to tolerate. ?? Rhonda reports that she took to the anastrozole for less than 1 year. She reports that she does experience occasional vaginal dryness and pain with intercourse. No vaginal bleeding. She continues to regularly exercise. She had a followup bone mineral density study today and was seen in the osteoporosis Clinic for follow-up of osteopenia. She denies any new breast concerns. She had a bilateral screening mammogram today with 3D tomosynthesis. The following systems were negative: Constitutional, Skin, Eyes, ENT, CV, Respiratory, GI, , Hematologic, Musculoskeletal, Neuro, Psych Past Medical History: Past Medical History: Diagnosis Date ??? Cancer Breast Personal History March 2009 ??? Osteopenia Don't recall ??? Other Specified Health Status December 11, 2003 Pituitary adenoma -- had surgery to remove tumor Past Surgical History: Procedure Laterality Date ??? BREAST SURGERY March 2009 Lumpectomy ??? DILATATION AND CURETTAGE 2016 Removal of uterine polyps Allergies Allergen Reactions ??? No Known Allergies Other (see comments) Current Outpatient Prescriptions: ??? biotin 1 mg capsule, Take 1 capsule by mouth daily., Disp: , Rfl: ??? calcium citrate/vitamin D3 (CITRACAL REGULAR ORAL), Take by mouth., Disp: , Rfl: ??? magnesium 30 mg tablet, Take 1 tablet by mouth daily., Disp: , Rfl: ??? multivitamin tablet, Take 1 tablet by mouth daily., Disp: , Rfl: ??? potassium gluconate 2.5 mEq tablet, Take 1 tablet by mouth daily., Disp: , Rfl: The following portions of the patient's history were reviewed and updated as appropriate: allergies,current medications, family history, medical history, social history, surgical history and problem list. OBJECTIVE PHYSICAL EXAM Ht 174.2 cm Wt 60.5 kg BMI 19.94 kg/m?? Constitutional: Alert and no apparent distress. Lymphadenopathy: No cervical or supraclavicular adenopathy. Breast: On inspection the right breast is smaller and slightly retracted in the medial lower quadrant secondary to the lumpectomy and radiation treatment. On the right breast the surgical scars are well healed in the right lower quadrant. There is no evidence of any scar thickening or nodularity on myexam today. She does have some mild scar fibrosis and postradiation changes. The remainder of the right breast exam no discrete mass and no axillary adenopathy. Left breast exam no discrete mass and noaxillary adenopathy. ASSESSMENT / PLAN #1 Right breast cancer status post breast conserving therapy diagnosed 2008 #2 Completed systemic therapy #3 Completed adjuvant hormonal therapy with tamoxifen ( 5 years ) followed by an aromatase inhibitor( <1 year) Reassured Rhonda regarding the satisfactory clinical breast exam. We went over the results of the bilateral screening 3D tomosynthesis mammogram today. We went over the images on the QREADS module. Reassured her that the mammogram was normal. We she does have dense breast tissue. We discussed followup with a Molecular Breast Imaging study every other year due to the dense breasttissue.. She had an MBI study in 2018 that was negative. We went over the pros and cons of the molecular Breast Imaging and small risk of radiation. She is going to check to see if her insurance company covers the MBI study. Also encouraged to continue with breast health awareness and follow up sooner if any new concerns. We discussed [facility] for the ongoing clinical breast exam and bilateral screening mammogram. She would like to return to the Breast Clinic and would be seen in the [facility] in June 2019. #4 Vaginal dryness We discussed the use of Replens 3 times a week for management of the vaginal dryness. If she is symptomatic in notes any bleeding or spotting that should be further evaluated by her home provider. #5 Osteopenia Consultation and followup in Osteoporosis Clinic appreciated. Recommend she continue with calcium and vitamin-D supplementation and regular exercise. Breast Clinic recommendations: 1. Return to the [facility] in 1 year for the clinical breast exam and bilateral 3D screening mammogram 2. Encouraged her to continue with breast health awareness and follow up sooner if any concerns 3. Molecular Breast Imaging study in 2019 and the patient will follow up with her insurance company regarding coverage. PATIENT EDUCATION Ready to learn, no apparent learning barriers were identified; learning preferences include listening. Explained diagnosis and treatment plan; patient expressed understanding of the content. Total visit time 25 minutes, with >50 % spent counseling with the patient and coordination of care activities described above. documented in this encounter Plan of Treatment Not on filedocumented as of this encounter Visit Diagnoses Diagnosis Cancer Breast Personal History - Primary documented in this encounter Care Teams Digital Campaign Manager Relationship Specialty Start Date End Date Darryl Stallings M.B.B.SCamilo, M.Teddy. PCP - General Family Medicine 06/10/[address] [place] [address] [place] Castellano [phone] documented as of this encounter
--- OUTSIDE RECORDS SUMMARY | 2022-08-04 08:20 | XMS_ITS | Encounter Summary ---
:1955 Author Organization [facility] Address [address] [place] [address] Care Team Providers Name Role Phone Unavailable Primary Care Provider Unavailable Encounter Details Date Type Department Care Team Description 04/09/2016 Hospital Encounter HX [facility] Fernando Au M.D. [address] [place] [address], [address] [place] [address] (Wo rk) Social History Tobacco Use Types [...] or relatives? How often do you attend christian or rastafarian More than 4 time s per year 04/19/2022 services? Do you belong to any clubs or organizations Yes 04/19/2022 such as christian groups, unions, fraternal or athletic groups, or [...] or slept in a halfway (including now)? Sex Assigned at Date Recorded [...] Name Priority Date/Time Associated Diagnosis Comme nts DX SHOULDER LEFT 2+ Routine 04/09/2016 1:00 PM Re sults for this VIEWS CDT procedure are i n the results section. documented in this encounter Results DX Shoulder Left 2+ Views (04/09/2016 1:00 PM CDT) Anatomical Region Laterality Modality Upper Extremity, Shoulder Left Radiographic I maging Specimen (Source) Anatomical Collection Method Collection Time Re ceived Time Location / / Volume Laterality 04/09/2016 1:00 PM CDT Addenda Addendum by Provider, Alek Jarrell 04/09/2016 1:00 PM CDT RAD^^^OW XR Shoulder Left 2 or more views 04/09/2016 13:00:34 Impressions 04/09/2016 1:47 PM CDT ??Please see above dictation. Narrative 04/09/2016 1:47 PM CDT EXAM: ??XR Shoulder Left 2 or more views AGE: ??60 years old. GENDER: ??Female. INDICATION: ??shoulder pain; not otherwi se specified. COMPARISON: ??None. FINDINGS: ??Mild degenerative changes of the left glenohumeral and acromioclavicular joint spaces. Normal m ineralization. Alignment. Negative for fractures or dislocation. L eft shoulder otherwise unremarkable. Procedure Note Damián Gonzalez M.D. / Provider, Delores foster M.D. - 02/20/2017 EXAM: XR Shoulder Left 2 or more views AGE: [age] years old. GENDER: Female. INDICATION: shoulder pain; not otherwise specified. COMPARISON: None. FINDINGS: Mild degenerative changes of t he left glenohumeral and acromioclavicular joint spaces. Normal m ineralization. Alignment. Negative for fractures or dislocation. L eft shoulder otherwise unremarkable. IMPRESSION: Please see above dictation. Historical Provider IMG DIAGNOSTIC IMAGING PROCE BONNIE documented in this encounter Visit Diagnoses Not on filedocumented in this encounter
--- OUTSIDE RECORDS SUMMARY | 2022-08-04 08:20 | XMS_ITS | Encounter Summary ---
:1955 Author Organization [facility] Address [address] [place] [address] Care Team Providers Name Role Phone Unavailable Primary Care Provider Unavailable Encounter Details Date Type Department Care Team Description 04/07/2016 Hospital Encounter HX [facility] Fernando Joseph M.D. [address] [place] [address], [address] [place] [address] (Wo rk) Social History Tobacco [...] How often do you attend druze or latter-day More than 4 time s per year [...] or slept in a assisted (including now)? Sex Assigned at Date Recorded Female 06/28/2018 6:37 PM CDT documented as of this encounter Last Filed Vital Signs Vital Sign Reading Time Taken Comments Blood Pressure 116/68 04/07/2016 3:19 PM CDT Pulse - - Temperature - - Respiratory Rate - - Oxygen Saturation - - Inhaled Oxygen Concentration - - Weight 61.3 kg (135 lb 2.3 oz) 04/07/2016 3:19 PM CDT Height - - Body Mass Index 20.18 03/03/2016 9:48 AM CDT documented in this encounter Medications [...] documented as of this encounter Progress Notes Eliana Joseph M.D. - 04/07/2016 3:10 PM CDT [id number] CHIEF COMPLAINT/REASON FOR VISIT Left shoulder and upper arm pain. HISTORY OF PRESENT ILLNESS Ms. Berumen is a very pleasant 60-year-old right-handed female who reports, in September 2015, she was reaching in between 2 seats as she was sitting as a passenger in a vehicle and attempted to lift, with her left arm, a bag. She attempted several times to lift it as it was stuck. As she was doing this she felt immediate pain in her left upper arm. She points to the region of the proximal biceps but she reports it is in a rather diffuse location. She had significant pain following that although she does not recall that there was any bruising. She felt there may have been some mild edema but she reports she was not pain to close attention or actually looking at it. She reports that the pain has continued. She has been really favoring it over the past several weeks and that has helped but the pain isstill present. She describes pain in a few different locations. The worst pain tends to be located in the proximal left humerus primarily anterior and anterolaterally. The pain can also occur in the anterolateral shoulder. It is worse when she does things such as lie on her left side at night or reaching backward or lifting. She describes this as a throbbing alternating with stabbing type of discomfort. She has used ibuprofen intermittently as needed for the discomfort. The main thing she finds to be helpful is to avoid the movements that tend to exacerbate the pain. She denies any paresthesias or focal weakness in her left upper extremity. MEDICATIONS Reviewed as per EMR under the medications tab 04/07/2016. ALLERGIES No known medication allergies. PAST MEDICAL/SURGICAL HISTORY Reviewed as under the diagnosis and problems tab in the EMR on 04/07. SOCIAL HISTORY Ms. Berumen lives in [place]. She works at [facility] in [facility]. PHYSICAL EXAMINATION GENERAL: Pleasant 60-year-old female in no acute distress. NEUROLOGICAL: Mental status: Oriented to person, place and time. Appropriate mood and affect. Strength: All major muscle groups of the bilateral upper extremities have normal and symmetric muscle strength, bulk and tone except for -1 weakness testing of the shoulder external rotators limited by pain. S ensation: Normal light touch sensation through upper extremities. MUSCULOSKELETAL: Shoulder: Forward elevation is 160 degrees on the left, 180 degrees on the right. Abduction is to 160 degrees on the left and 180 degrees on the right with pain in the mid arc on the left. Internal rotation to L5 bilateral. External rotation is to 45 degrees in the left and 75 degreesin the right. Positive Neer's, positive Dash, negative speed, negative scarf and negative Taliaferro's on the left. There is also mild tenderness to palpation of the anterior subacromial space on the left. There is also mild tenderness over the proximal biceps muscle. The distal biceps tendon is intact without tenderness. IMPRESSION/REPORT/PLAN 1. Left shoulder and upper arm pain following an injury in September 2015. Ms. Hurtado's symptoms and examination are most consistent with a diagnosis of left shoulder impingement syndrome as well as I feel she may have suffered a potential biceps muscle strain at the time that this injury occurred in September 2015. She also does have decreased left shoulder range of motion as compared to the right which is limited by pain. Even passively she has decreased left shoulder external rotation and may have a component of mild underlying glenohumeral DJD versus potentially developing a component of adhesive capsulitis especially with how she has been trying not to use the arm as much over the past several weeks. PLAN: 1. I am going to proceed with x-rays today of the left shoulder. 2. We will plan on being in contact with Ms. Berumen following the x-rays of her left shoulder pain. Vijay think she would benefit greatly from being involved in physical therapy. We discussed this today.We are going to work on a comprehensive program including left shoulder range of motion as well as a scapular stabilizer strengthening program progressing to rotator cuff strengthening as able. 3. I will then plan on see Ms. Berumen in 6 weeks to assess her progress or sooner if she notes any worsening or worrisome symptoms which we went over in detail today. Ms. Berumen voiced agreement and understanding of this plan. Eliana Joseph M.D./serenity Electronically Signed By: ELIANA JOSEPH MD On: 04/14/2016 02:06 PM Modified by and Electronically Signed by: ELIANA JOSEPH MD On: 04/14/2016 02:06 PM Source: [facility] MHSDOLBEYNONRADSYS Document Id: [id number] documented in this encounter Miscellaneous Notes Telephone Encounter - Fabiola Lyman L.PCamiloN. - 04/15/2016 4:19 PM CDT *Phone Message Document Contains Addenda Addendum by FABIOLA LYMAN LPN on April 21, 2016 09:58:17 CDT Faxed Addendum by ELIANA JOSEPH MD on April 21, 2016 09:27:03 CDT From: ELIANA JOSEPH MD To: [facility] Rehabilitation Staff; Sent: 04/21/2016 09:27:03 CDT Subject: RE: *Phone Message Done. Thanks. From: FABIOLA LYMAN LPN ( [facility] Medicine [facility] Rehabilitation Staff) To: ELIANA JOSEPH MD; Sent: 04/15/2016 16:19:31 CDT Subject: *Phone Message Caller is: ( x ) Patient ( ) Mother ( ) Father ( ) Spouse ( ) Daughter ( ) Son ( ) Pharmacy ( ) Other: Physician: Patient MRN #: Reason for Call: She is fine with going to [facility] if you will write up PT order. Message: Advice/Action: Source used: ( ) Verbalizes understanding of instructions ( ) Instructed to call back if symptoms worsen or do not resolve ( ) Refused to see provider ( ) Appointment Scheduled ( ) OK to leave message on voice mail ( ) Patient told to expect return call: ( ) today ( ) tomorrow ( ) next work day ( ) Patient's email ( ) Patient told physician out of office, will call upon return call on ( ) ( ) Patient told physician out of office, routed to other physician ( ) Other ( ) Call back telephone number ( ) Call back cell phone number ( ) Source: [facility] POWERCHART Document Id: [id number] Electronically signed by Julita [facility] Environmental Change Analyst [id number] at 03/13/2017 5:51 PM CDT Miscellaneous - Eliana Joseph M.D. - 04/07/2016 4:08 PM CDT Ambulatory Discharge Medication List [address] [id number] Visit Information Name: TINY BERUMEN [facility] Number: [id number] Visit Date: 04/07/2016 16:08:49 Attending Provider: ELIANA JOSEPH MD Primary Care Provider: LEXII BERMEO MD TINY BERUMEN has been given the following list of medications: Your Medications It is important to take your medications as directed. Use a pill box or chart to help remind you to take your medications. Please let your doctor or nurse know if you have problems taking your medications. Medication/Strength How to Take Indications/Special Instructions/Comments/Notes for Patient Medication Changes/Routing calcium-vitamin D (Citracal + D oral tablet) 2 tablets, Oral, once a day multivitamin (multivitamin) 1 Tablet(s), Oral, once a day tamoxifen (tamoxifen) tamoxifen (tamoxifen 20 mg oral tablet) Stop Taking the Following Medications: Medication list as of 04-07-16 16:08 Attention: If you have any medications at home that are not on this list, DO NOT take them until youcontact your provider for clarification. Give a copy of your medication list to your primary care provider. Update your medication list any time medications or doses are changed and carry your medication list at all times in case of emergency. Electronically Signed By: ELIANA JOSEPH MD Signed On:07-APR-2016 16:08:31 Additional Information: Source: [facility] POWERCHART Document Id: [id number] Miscellaneous - Eliana Joseph M.D. - 04/07/2016 4:08 PM CDT Ambulatory Patient Summary [address] [id number] Visit Information Name: TINY BERUMEN [facility] Number: [id number] Current Date: 04/07/2016 16:08:49 Physicians Attending Provider: ELIANA JOSEPH MD Primary Care Provider: LEXII BERMEO MD TINY BERUMEN has been given the following list of follow-up instructions, medication list, and patient education materials: Follow-up Instructions Your Medications Here is a list of your medications. It is important to take your medications as directed. Use a pillbox or chart to help remind you to take your medications. Please let your doctor or nurse know if you have problems taking your medications. Medication/Strength How to Take Indications/Special Instructions/Comments/Notes for Patient Medication Changes/Routing calcium-vitamin D (Citracal + D oral tablet) 2 tablets, Oral, once a day multivitamin (multivitamin) 1 Tablet(s), Oral, once a day tamoxifen (tamoxifen) tamoxifen (tamoxifen 20 mg oral tablet) Stop Taking the Following Medications: Medication list as of 04-07-16 16:08 Attention: If you have any medications at home that are not on this list, DO NOT take them until youcontact your provider for clarification. Give a copy of your medication list to your primary care provider. Update your medication list any time medications or doses are changed and carry your medication list at all times in case of emergency. 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 Consider Using Patient Online [facility] Patient [facility] is a secure online and Mobile application that lets you: ?? View lab and test results ?? View portions of your medical record including clinical notes, immunizations and discharge summaries ?? Request an appointment or medication refill ?? Review your appointment schedule ?? Send secure messages to your care team Its easy to create an account if you dont have one. Go to [email or web address] and click on Create Your Account. Then, follow the directions to complete the online form. Youll be asked for your [facility] number which you can find at the top of this document. Your Goals/Additional instructions: Source: [facility] POWERCHART Document Id: [id number] Miscellaneous - Michelle Marks LCamiloP.N. 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 Intake/History Entered On: 04/07/2016 15:22 CDT Performed On: 04/07/2016 15:19 CDT by MICHELLE MARKS BABY SITTER Intake Systolic Blood Pressure : 116 mmHg Diastolic Blood Pressure : 68 mmHg NIBP Mean : 84 mmHg BP Location : Right upper extremity Blood Pressure Cuff Size : Regular Actual Weight : 61.3 kg(Converted to: 135 lb 2 oz) Weight Source : Standing scale Dosing Weight Clinic : 61.3 kg MICHELLE MARKS [facility] - 04/07/2016 15:19 CDT General Info Information Given By : Patient Languages : Guamanian Is Patient Female and 13-50 no hysterectomy : MICHELLE Curtis [facility] - 04/07/2016 15:19 CDT Subjective Pain Symptoms : MICHELLE Curtis [facility] - 04/07/2016 15:19 CDT Dependent Habits Smoking Status : Never smoker Tobacco 2A : No Tobacco Use/Currently Using : No Tobacco Use/Last 30 Days : No Tobacco Use/Last 12 months : MICHELLE Curtis [facility] - 04/07/2016 15:19 CDT Source: [facility] Document Id: [id number] CDT!22 documented in this encounter Plan of Treatment Not on filedocumented as of this encounter Visit Diagnoses Not on filedocumented in this encounter
--- OUTSIDE RECORDS SUMMARY | 2022-08-04 08:20 | XMS_ITS | Encounter Summary ---
:1955 Author Organization [facility] Address [address] [place] [address] Care Team Providers Name Role Phone Jason Yu M.D. Primary Care Provider Encounter Details Date Type Department Care Team Description 05/06/2018 Abstract DATA ABSTRACTION Provider, Historical Social History Tobacco Use Types Packs/Day Years [...] or relatives? How often do you attend anabaptism or gnosticism More than 4 time s per year 04/19/2022 services? Do you belong to any clubs or organizations Yes 04/19/2022 such as anabaptism groups, unions, fraternal or athletic groups, or [...] or slept in a retirement (including now)? Sex Assigned at Date Recorded Female 06/28/2018 6:37 PM CDT documented as of this encounter Plan of Treatment Not on filedocumented as of this encounter Visit Diagnoses Not on filedocumented in this encounter Care Teams Engineering Technical Writer Relationship Specialty Start Date End Date Jason Yu M.D. PCP - General 04/01/17 06/09/[address] [place] [address] [place] [address] documented as of this encounter
--- OUTSIDE RECORDS SUMMARY | 2022-08-04 08:20 | XMS_ITS | Encounter Summary ---
:1955 Author Organization [facility] Address [address] [place] [address] Care Team Providers Name Role Phone Unavailable Primary Care Provider Unavailable Encounter Details Date Type Department Care Team Description 07/14/2012 Hospital Encounter [facility]X [facility] Provider, Histor ical Social History Tobacco Use Types Packs/Day Years [...] How often do you attend protestant or orthodox More than 4 time s [...] or slept in a detention (including now)? Sex Assigned at Date Recorded [...] documented as of this encounter Progress Notes Conversion, Historical Provider Ser - 07/14/2012 8:59 AM CDT [facility] Exam Document Has Been Updated [facility] Exam Entered On: 07/14/2012 8:59 CDT Performed On: 07/14/2012 8:59 CDT by KENNETH ALONZO OD Chief Complaint and History Last Eye Exam : 03/26/11 KENNETH Burgess OD - 07/14/2012 10:25 CDT Smoking Status : Never smoker KENNETH ALONZO OD - 07/14/2012 9:49 CDT Family History Reviewed : 07/14/2012 CDT KENNETH ALONZO OD - 07/14/2012 9:01 CDT Chief Complaint : Other: Would like to update her CL Rx, Pain Symptoms : No KENNETH ALONZO OD - 07/14/2012 8:59 CDT KENNETH ALONZO OD - 07/14/2012 8:59 CDT Optometry Exam Familty History Grid Cancer : Self, h/o breast cancer x 2008, s/p lumpectomy, radiation therapy and tamoxifen Neurologic : Self, h/o pituitary adenoma x 2003, s/p resection w/optic atrophy OS, followed by KENNETH WHITE OD - 07/14/2012 9:01 CDT Stroke : Mother Cataract : Father KENNETH ALONZO OD - 07/14/2012 8:59 CDT Vision Testing Right Eye Vision Testing : Contacts, 20/20 Left Eye Vision Testing : Contacts, 20/50, -1 Both Eyes Vision Testing : Contacts, 20/20 KENNETH ALONZO OD - 07/14/2012 9:01 CDT Refraction Contact Lens Care Grid Contact Lens Care Row Hours Worn per Day : 14+ Days Worn per Week : 7 Overnight Wear : No Replacement Schedule : monthly Solution Used : Itzel Comments (Comment: CL FIT: good coverage centration and movement OU, stable rotation with 6:00 lens markings positioning on vertical OU [KENNETH ALONZO OD - 07/14/2012 10:25 CDT] ) KENNETH ALONZO OD - 07/14/2012 10:25 CDT Current Contact Lens Rx Grid Contact Lens RE Contact Lens LE Type : Coopervision Biofinity Toric OU BC : 8.7 OU Comment : -4.25 -0.75 x 090 -4.25 -0.75 x 050 KENNETH ALONZO OD - 07/14/2012 10:34 CDT KENNETH ALONZO OD - 07/14/2012 8:59 CDT KENNETH ALONZO OD - 07/14/2012 8:59 CDT Right Eye Manifest Grid Date : 07/14/2012 CDT Performed by : Provider Sphere : -5.50 CYL : +0.75 Ripley : 10 Visual Acuity Distance : 20/20 ADD : +2.50 Visual Acuity Near : Other: 20/20 OU KENNETH ALONZO OD - 07/14/2012 9:01 CDT Left Eye Manifest Grid Date : 07/14/2012 CDT Performed by : Provider Sphere : -6.00 CYL : +1.25 Ripley : 135 Visual Acuity Distance : 20/40, -1 ADD : +2.50 KENNETH ALONZO OD - 07/14/2012 9:01 CDT Ocular Testing EOMS : Normal Comment : TR APD OS Pupils : APD KENNETH ALONZO OD - 07/14/2012 9:01 CDT Confrontation Frederick : RE Normal, LE Abnormal Comment : constiction temporal OS to confrontation KENNETH ALONZO OD - 07/14/2012 10:25 CDT Intraoccular Pressures Intraoccular Pressures Grid Date : 07/14/2012 CDT Virgil Pen : OD 16 OS 15 Eye Drops : Other: 0.5% Proparacaine OU @ 0922 KENNETH ALONZO OD - 07/14/2012 9:01 CDT Eye Drops Exam Phenylephrine 2.5% Eye Drops Eye : Both eyes Phenylephrine 2.5% Eye Drops Amount : One drop Phenylephrine 2.5% Eye Drops Time : 9:23 FLOOR COVERER APPRENTICE Tropicamide 1% Eye Drops Eye : Both eyes Tropicamide 1% Eye Drops Amount : One drop Tropicamide 1% Eye Drops Time : 9:23 FLOOR COVERER APPRENTICE KENNETH ALONZO 07/14/2012 9:01 CDT Ocular Health Ocular Health Ext Rt Eye Grid Ext Rt Eye - Lids/Lashes : Normal Ext Rt Eye - Conjunctiva : Normal Ext Rt Eye - Cornea : Normal Ext Rt Eye - A/C : Normal Ext Rt Eye - Iris : Normal Ext Rt Eye - Lens : Normal KENNETH ALONZO - 07/14/2012 10:25 CDT Ocular Health Ext Lt Eye Grid Ext Lt Eye - Lids/Lashes : Normal Ext Lt Eye - Conjunctiva : Normal Ext Lt Eye - Cornea : Normal Ext Lt Eye - A/C : Normal Ext Lt Eye - Iris : Normal Ext Lt Eye - Lens : Normal KENNETH ALONZO - 07/14/2012 10:25 CDT Ocular Health Int Rt Eye Grid Int Rt Eye - Vitreous : Normal Int Rt Eye - C/D : Normal (Comment: 0.4 [KENNETH ALONZO 07/14/2012 10:25 CDT] ) Int Rt Eye - Margins : Normal (Comment: choriodal crescent [KENNETH ALONZO 07/14/2012 10:25 CDT] ) Int Rt Eye - Color : Normal Int Rt Eye - Macula : Normal (Comment: +FR [KENNETH ALONZO 07/14/2012 10:25 CDT] ) Int Rt Eye - Posterior Pole : Normal Int Rt Eye - Periphery : Normal Int Rt Eye - Vessels : Normal KENNETH ALONZO 07/14/2012 10:25 CDT Ocular Health Int Lt Eye Grid Int Lt Eye - Vitreous : Normal Int Lt Eye - C/D : Normal (Comment: 0.4 [KENNETH ALONZO 07/14/2012 10:25 CDT] ) Int Lt Eye - Margins : Normal (Comment: choroidal crescent [KENNETH ALONZO 07/14/2012 10:25 CDT] ) Int Lt Eye - Color : Normal (Comment: trace pallor [KENNETH ALONZO 07/14/2012 10:25 CDT] ) Int Lt Eye - Macula : Normal (Comment: +FR [KENNETH ALONZO 07/14/2012 10:25 CDT] ) Int Lt Eye - Posterior Pole : Normal Int Lt Eye - Periphery : Normal Int Lt Eye - Vessels : Normal KENNETH ALONZO OD - 07/14/2012 10:25 CDT Assessment Findings : Myopia, Astigmatism, Other: 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 Orientation to Time, Place, and Person : Yes Mood/Affect : Cooperative, Appropriate Plan : Return for complete exam in one year or PRN, Other: Patient declines formal VF testing today as this is done at [facility]. JACKIE ALONZOVeronica Salazar OD - 07/14/2012 10:25 CDT Source: [employer] Document Id: [id number] documented in this encounter Miscellaneous Notes Miscellaneous - Conversion, Historical Provider Ser - 07/14/2012 9:28 AM CDT [place] [address] Visit Information Name: TINY BERUMEN Visit Date: 07/14/2012 09:28:05 Attending Provider: KENNETH ALONZO OD Primary Care Provider: STEFANO KUNZ MD, REBECCA A has been given the following list of medications: Your Medications It is important to take your medications as directed. Use a pill box or chart to help remind you to take your medications. Please let your doctor or nurse know if you have problems taking your medications. Medication/Strength Dose Route Frequency Indications/Special Instructions/Comments tamoxifen (tamoxifen 20 mg oral tablet) tamoxifen (tamoxifen) calcium-vitamin D (Citracal + D oral tablet) 2 tablets Oral once a day multivitamin (multivitamin) 1 tab(s) Oral once a day Attention: If you have any medications at home that are not on this list, DO NOT take them until youcontact your provider for clarification. Additional Information: Source: [email or web address] Document Id: [id number] Miscellaneous - Conversion, Historical Provider Ser - 07/14/2012 9:28 AM CDT Ambulatory Patient Summary [address] [place] [address] Visit Information Name: TINY BERUMEN Current Date: 07/14/2012 09:28:05 Physicians Attending Provider: KENNETH ALONZO OD Primary Care Provider: STEFANO KUNZ MD Your Medications Here is a list of your medications. It is important to take your medications as directed. Use a pillbox or chart to help remind you to take your medications. Please let your doctor or nurse know if you have problems taking your medications. Medication/Strength Dose Route Frequency Indications/Special Instructions/Comments tamoxifen (tamoxifen 20 mg oral tablet) tamoxifen (tamoxifen) calcium-vitamin D (Citracal + D oral tablet) 2 tablets Oral once a day multivitamin (multivitamin) 1 tab(s) Oral once a day Attention: If you have any medications at home that are not on this list, DO NOT take them until youcontact your provider for clarification. Your Allergies & Intolerances Substance Reaction Symptoms Category Comments No Known Allergies Drug Your Problem List Problem Status Onset Comments Myopia Active 03/26/2011 Astigmatism Active 03/26/2011 Your Upcoming Appointments Date Time Location Reason Provider No Appointments found Your Goals/Additional instructions: Source: [facility] POWERCHART Document Id: [id number] documented in this encounter Plan of Treatment Not on filedocumented as of this encounter Visit Diagnoses Not on filedocumented in this encounter
--- OUTSIDE RECORDS SUMMARY | 2022-08-04 08:20 | XMS_ITS | Encounter Summary ---
:1955 Author Organization [facility] Address [address] [place] [address] Care Team Providers Name Role Phone Unavailable Primary Care Provider Unavailable Encounter Details Date Type Department Care Team Description 07/14/2012 Hospital Encounter HX [facility] Provider, Davey gustafson Social History Tobacco Use Types Packs/Day Years [...] How often do you attend hinduism or religion More than 4 time s per year [...]
--- OUTSIDE RECORDS SUMMARY | 2022-08-04 08:21 | XMS_ITS | Encounter Summary ---
:1955 Author Organization [facility] Address [address] [place] [address] Care Team Providers Name Role Phone Unavailable Primary Care Provider Unavailable Encounter Details Date Type Department Care Team Description 10/08/2009 Hospital Encounter HX [facility] Martin Amanda M.D. [address] [place] [phone] (Wo rk) Social History Tobacco Use Types [...] or relatives? How often do you attend pentecostal or yarsanism More than 4 time s per year 04/19/2022 services? Do you belong to any clubs or organizations Yes 04/19/2022 such as pentecostal groups, unions, fraternal or athletic groups, or [...] documented as of this encounter Progress Notes Martin Ahuja M.D. - 10/08/2009 8:11 AM CST [id number] SUBJECTIVE This is a patient who was initially treated at [facility] in [place]. She presented in March of 2009 with a density on a screening mammogram. The patient had an ultrasound, which was negative. She underwent an open excisional biopsy. No needle biopsy was performed. At that time, she was found tohave an infiltrating lobular carcinoma, pleomorphic type, grade 3/3, measuring 1.1 x 0.7 x 0.7 cm. She underwent a sentinel node biopsy. She is currently undergoing treatment by Dr. Zelaya. Her sentinel node biopsy was negative. We saw the patient approximately 2 months ago in the onset of left breast tenderness. It is mainly on the medial aspect of the left breast. It mainly occurs with palpation. When she is dressing and putting her bra on or showering, the pain has persisted. She has not noticedany mass or lump in the area. She is not noticing skin changes, such as erythema, dimpling, or puckering; or nipple discharge of the left breast. She is currently undergoing radiation treatment on the right, and she does, of course, have skin changes of this area. She does state at the beginning of this appointment that she is planning to transfer her care to [facility] in November, as they are moving up to this area, and she has already set up appointment with the breast cancer clinic. One thing I did not mention earlier is that the patient did receive 4 cycles of Adriamycin and Cytoxan. There is no other family history of breast cancer or ovarian cancer. The patient reached menarche at age 12. She reached menopause at age 51. She has had 2 full-term pregnancies, first at age 23. PAST MEDICAL HISTORY Includes history of GERD. She is, otherwise, healthy. PRIOR SURGERIES Include removal of pituitary adenoma in 2003. She has had a lipoma removed. MEDICATIONS Reviewed and reconciled with electronic medical record. ALLERGIES No known drug allergies. FAMILY HISTORY The patient's mom is alive and well, age 75. Dad has history of coronary artery disease. Grandparents have a history of osteoporosis. Mom has history of CVA. Dad has history of sleep apnea. SOCIAL HISTORY The patient is , accompanied by her today. HABITS Include no tobacco use, occasional alcohol use. REVIEW OF SYSTEMS She does state that the pain is intermittent in nature, again, on palpation mainly. No lump or mass.No other chest pain, other than pain related to the radiation therapy. No cough or shortness of breath. No bone or musculoskeletal- type pain. No abdominal pain or change in bowel habits. No unexplainedweight changes. Review of systems reviewed. Otherwise, unremarkable. PHYSICAL EXAM Blood pressure 122/68, heart rate 76, respirations 18, temperature 37. Weight is 161.6 kg. Height is175 cm. BMI is 20. In general, this is a very pleasant, well- developed, well-nourished female in no acute distress. Her skin is normal without rash or jaundice. Pupils are equally round and reactive. No scleral icterus. Mucous membranes are moist. Her neck is supple without cervical or supraclavicularlymphadenopathy. No thyromegaly. The right axilla is tender on palpation. No lymphadenopathy. Left axilla is without lymphadenopathy. The right breast is very sore due to radiation changes. There is nodiscrete abnormality. The left breast reveals tenderness along the lateral aspect, really all between 11 and 7 o'clock. This is especially over areas of ribs in her most tender area. There is no discrete or dominant mass. No skin change. No nipple discharge. Her abdomen is soft and nontender. No mass or organomegaly appreciated. Extremities are without evidence of lymphedema. Neurologic is grossly intact. Alert and oriented. No gross focal deficits. Unfortunately, her mammogram films did not arrive to [place]. I learned that she had already scheduled an appointment at [facility] and feel like they could already be there. I did scan the area by myself byultrasound. No abnormality is appreciated. I emphasized that this is a very informal ultrasound. They expressed desire that they did not want to have a diagnostic mammogram done here, as they would be establishing care with [facility] in a few weeks and, since they knew we would not have films for comparison, followup at the evaluation would be incomplete today. Therefore, they declined further evaluation.We are comfortable that no obvious abnormalities were appreciated on clinical breast exam or on informal ultrasound. We discussed whether she wanted to treat her discomfort, and she declined this. I encouraged her that if she feels any changes in the area; any lump or mass developing; any skin changes, such as erythema, dimpling, or puckering; worsening pain; or any other concern, to let me know right away. We could facilitate her getting to [facility] sooner or evaluation here. I told her that I think this definitely warrants further evaluation. If she wanted to wait the 5-week period, I respected that,and again, no alarming abnormalities were appreciated today. She was comfortable with this plan. Allher questions were answered to her satisfaction today. Saige Ahuja MD//nevin #[id number] cc: Electronically Signed By:CECIL AHUJA MD On 10/24/2009 06:03 PM Source: [facility] Document Id: [id number] IFICATIONS CHECKER documented in this encounter Miscellaneous Notes Miscellaneous - Maureen Prieto, R.N. 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 Finished chemo 10/29/09. Temperature Core: 37.0DegC(Converted to: 98.6DegF) Peripheral Pulse Rate: 76bpm Systolic Blood Pressure: 122mmHg Diastolic Blood Pressure: 68mmHg NIBP Mean: 86mmHg BP Location: Left upper extremity Height: 175.00cm(Converted to: 5ft 9in, 5.74ft, 68.90in) Clinic BSA: 1.73 Body Mass Index: 20kg/m2 Actual Weight: 61.600kg(Converted to: 135.805lb) Dosing Weight Clinic: 61.60kg MAUREEN PRIETO RN - 10/08/2009 8:25 SPECIFICATIONS CHECKER General Info Information Given By: Patient, Spouse Preferred Communication Mode: Verbal Languages: Lao MAUREEN PRIETO RN - 10/08/2009 8:25 SPECIFICATIONS CHECKER Subjective Pain Symptoms: No MAUREEN PRIETO RN - 10/08/2009 8:25 SPECIFICATIONS CHECKER Dependent Habits Tobacco Use/Currently Using: No MAUREEN PRIETO RN - 10/08/2009 8:25 SPECIFICATIONS CHECKER Tobacco Use Grid Type: Other: NONE Comments (Comment: never [MAUREEN PRIETO RN - 10/08/2009 8:25 SPECIFICATIONS CHECKER] ) MAUREEN PRIETO RN - 10/08/2009 8:25 SPECIFICATIONS CHECKER Alcohol Use Grid Alcohol Use: Current Type: Wine Frequency: Other: rare MAUREEN PRIETO RN - 10/08/2009 8:25 SPECIFICATIONS CHECKER Allergies Latex Screening: No MAUREEN PRIETO RN - 10/08/2009 8:25 SPECIFICATIONS CHECKER Allergies (Active) NKA Estimated Onset Date: Unspecified ; Created By: MAUREEN PRIETO RN; Reaction Status: Active ; Category: Drug ; Substance: NKA ; Type: Allergy ; Updated By: MAUREEN PRIETO RN; Reviewed Date: 10/08/2009 8:23 SPECIFICATIONS CHECKER Anesth/Transfusion Anesthesia/Transfusions: Prior anesthesia MAUREEN PRIETO RN - 10/08/2009 8:25 SPECIFICATIONS CHECKER Health History I Ocular Past Medical History Grid Cataract: Father MAUREEN PRIETO RN - 10/08/2009 8:25 SPECIFICATIONS CHECKER Cardiovascular Past Medical History Grid Heart Attack: Father High Blood Pressure: Father High Cholesterol: Father Irregular Heartbeat/Palpitations: Mother MAUREEN PRIETO RN - 10/08/2009 8:25 SPECIFICATIONS CHECKER Respiratory Past Medical History Grid Sleep Apnea: Father ERIN PRIETOVERONIKA Salazar RN - 10/08/2009 8:25 SPECIFICATIONS CHECKER Gastrointestinal Past Medical Hx Grid Heartburn: Self OZZIEALFA MAUREEN M RN - 10/08/2009 8:25 SPECIFICATIONS CHECKER Genitourinary Past Medical Hx Grid Other: none known OZZIEANTONERIN EcheverriaVERONIKA Salazar RN - 10/08/2009 8:25 SPECIFICATIONS CHECKER Health History II Musculoskeletal Past Medical Hx Grid Osteoporosis: Grandparents, [employer] ADELEJuwanMAUREEN RN - 10/08/2009 8:25 SPECIFICATIONS CHECKER Endocrine/Metabolic Past Med Hx Grid Other: none known MAUREEN PRIETO RN - 10/08/2009 8:25 SPECIFICATIONS CHECKER Neurological Past Medical History Grid Migraines: Mother Stroke: Mother OZZIEMAUREEN GRIMM RN - 10/08/2009 8:25 SPECIFICATIONS CHECKER Psychiatric Past Medical History Grid Other: none known MAUREEN PRIETO RN - 10/08/2009 8:25 SPECIFICATIONS CHECKER Hematologic Past Medical History Grid Other: none known MAUREEN PRIETO RN - 10/08/2009 8:25 SPECIFICATIONS CHECKER Immunologic Past Medical History Grid Other: none MAUREEN PRIETO RN - 10/08/2009 8:25 SPECIFICATIONS CHECKER Oncologic Past Medical History Grid Breast Cancer: Self MAUREEN PRIETO RN - 10/08/2009 8:25 SPECIFICATIONS CHECKER Health History III Medical Devices: None MAUREEN PRIETO RN - 10/08/2009 8:25 SPECIFICATIONS CHECKER Source: [employer] Document Id: [id number] SPECIFICATIONS CHECKER!69 IFICATIONS CHECKER documented in this encounter Plan of Treatment Not on filedocumented as of this encounter Visit Diagnoses Not on filedocumented in this encounter
--- OUTSIDE RECORDS SUMMARY | 2022-08-04 08:21 | XMS_ITS | Encounter Summary ---
:1955 Author Organization [facility] Address [address] [place] [address] Care Team Providers Name Role Phone Unavailable Primary Care Provider Unavailable Encounter Details Date Type Department Care Team Description 03/26/2010 Hospital Encounter [facility]X [facility] Cassandra Perry M.D. [address] [facility], [facility] [address] [phone] Social History Tobacco Use Types Packs/Day Years [...] How often do you attend faith or mu-ism More than 4 time s per year [...] documented as of this encounter Miscellaneous Notes Miscellaneous - Cassandra Perry M.D. - 03/31/2010 7:53 AM CDT Reminder Msg Document Contains Addenda Addendum by TUTU BERNAL on 01 April 2010 16:50:46 CDT From: TUTU BERNAL To: CASSANDRA PERRY MD; Sent: 04/01/2010 16:50:46 CDT Subject: RE: Reminder Msg This was a pre-employment blood test, these results were to be given to Carmel Kiran, I called Rhonda, but did not give her the results, But did give the report to Carmel Kiran. [facility] 04/01/2010 From: CASSANDRA PERRY MD To: TUTU BERNAL Sent: 03/31/2010 07:53:52 CDT ! Show up: 03/31/2010 07:53:00 CDT Subject: Reminder Msg Actions: Notify patient of results Due Date/Time: 03/31/2010 07:53:00 CDT Source: [facility] POWERCHART Document Id: [id number] Electronically signed by Julita, [facility] Racing Car Driver [id number] at 03/22/2017 3:21 AM CDT documented in this encounter Plan of Treatment Not on filedocumented as of this encounter Visit Diagnoses Not on filedocumented in this encounter
--- OUTSIDE RECORDS SUMMARY | 2022-08-04 08:21 | XMS_ITS | Encounter Summary ---
:1955 Author Organization [facility] Address [address] [place] [address] Care Team Providers Name Role Phone Unavailable Primary Care Provider Unavailable Encounter Details Date Type Department Care Team Description 09/20/2009 Hospital Encounter [facility]X [facility] Stacy Zelaya M.D. [address] [place], [place] [address] (Wo rk) Social History Tobacco Use Types [...] or relatives? How often do you attend yarsani or rastafarian More than 4 time s per year 04/19/2022 services? Do you belong to any clubs or organizations Yes 04/19/2022 such as yarsani groups, unions, fraternal or athletic groups, or [...] place to sleep or slept in a [facility] (including now)? Sex Assigned at Date Recorded [...]
== END 2022-08-04 08:16 | disposition home or self-care (01) ==
LOC: MRI 08:16
PROVIDERS: PCP Internal Medicine; Visit Provider Internal Medicine
DX: M79.605 Pain in left leg (principal); D16.22 Benign neoplasm of long bones of left lower limb
CPT/HCPCS: 73718

== ENCOUNTER 2022-12-01 11:09 | Outpatient (CLI) | payer MEDICARE, BC, SELFPAY ==
[2022-12-01 15:10] LABS: Albumin* 4.2 g/dL (3.3-5.0)
[2022-12-01 15:11] LABS: Chloride* 107 mmol/L (96-114); Potassium* 4.2 mmol/L (3.6-5.1); Sodium* 139 mmol/L (135-149)
[2022-12-01 15:13] LABS: Bilirubin Total* 0.6 mg/dL (0.1-1.5); Carbon Dioxide* 26 mmol/L (20-32); Cholesterol* 167 mg/dL (90-199); Creatinine* 0.6 mg/dL (0.5-1.5); Estimated Glomerular Filt Rate 98 ml/min
[2022-12-01 15:14] LABS: Alanine Aminotransferase* 25 U/L (4-35); Alkaline Phosphatase* 57 U/L (40-150); Aspartate Amino Transferase* 28 U/L (12-35); Blood Urea Nitrogen* 17 mg/dL (7-30); Calcium* 8.8 mg/dL (8.4-10.6); Glucose* 86 mg/dL (60-115); Total Protein* 6.9 g/dL (6.0-8.3); Triglycerides* 50 mg/dL (40-149)
[2022-12-01 15:15] LABS: HDL Cholesterol* 83 mg/dL (>=50); LDL Cholesterol Calculated 74 mg/dL (<100)
== END 2022-12-01 11:10 | disposition home or self-care (01) ==
PROVIDERS: PCP Internal Medicine; Visit Provider Internal Medicine
DX: E78.5 Hyperlipidemia, unspecified (principal)
CPT/HCPCS: 80053; 80061

== ENCOUNTER 2023-06-08 09:18 | Outpatient (CLI) | payer MEDICARE, BC, SELFPAY | END 2023-06-08 09:19 | disposition home or self-care (01) | PROVIDERS: PCP Internal Medicine; Visit Provider Internal Medicine | DX: R55 Syncope and collapse (principal); E78.5 Hyperlipidemia, unspecified; E87.6 Hypokalemia | CPT/HCPCS: 80048; 84443 ==

== ENCOUNTER 2023-07-19 13:47 | Outpatient (CLI) | payer MEDICARE, BC, SELFPAY | END 2023-07-19 13:48 | disposition home or self-care (01) | LOC: RAD 13:47 | PROVIDERS: PCP Internal Medicine; Visit Provider Internal Medicine | DX: R55 Syncope and collapse (principal); I31.39 Other pericardial effusion (noninflammatory) | CPT/HCPCS: 93306 ==

== ENCOUNTER 2024-02-01 12:31 | Outpatient (CLI) | payer MEDICARE, BC, SELFPAY ==
--- OUTSIDE RECORDS SUMMARY | 2024-02-01 12:36 | XMS_ITS | Encounter Summary ---
Author Name Unknown Organization [facility] Address [address] [place] [address] Care Team Providers Care Fabric And Accessories Estimator Name Role Phone Darryl Stallings M.D. Primary Care [facility] Reason for Referral * Outpatient (Routine) - Authorized Specialty Diagnoses / Procedures Referred By Yady t Referred To Contact Family Medicine Darryl Stallings M.B.B.S., M.D. [address] [place] [phone] [facility] Referral ID Status Reason Start Date Expiration Date V isits Requested Visits Authorized [id number] Authorized 12/21/2023 06/21/2025 1 1 Scheduling Instructions Medicare annual provider visit/HCC gaps Do not schedule prior to due date to ensure insurance coverage Visit: Medicare Annual Wellness Never done. ROL MANAGER Encounter Details Date Type Department Care Team (Late st Contact Info) Description 12/21/2023 Orders Only [facility] Darryl Stallings M.B.B.S., M.D. [address] [place] [phone] Social History Tobacco Use Types Packs/Day Years Used Date Smoking Tobacco: Never Smokeless Tobacco: Never Comments:Never used Alcohol Use Standard Drinks/Week Comments Yes 1 (1 standard drink = 0.6 oz pur e alcohol) On social occasions Humiliation, Afraid, Rape, and Kick questionnair e Answer Date Recorded Within the last year, have y ou been afraid of your partner or ex-partner? No 04/19/2022 Within the last year, have y ou been humiliated or emotionally abused in other ways by your partner or ex-partner? No Within the last year, have y ou been kicked, hit, slapped, or otherwise physically hurt by your partner or ex-partner? No 04/19/2022 Within the last year, have y ou been raped or forced to have any kind of sexual activity by your partner or ex-partner? No 04/19/2022 Social Connection and Isolat ion Panel [NHANES] Answer Date Recorded In a typical week, how many times do you talk on the phone with family, friends, or neighbors? Twice a week 04/19/2022 How often do you get togethe r with friends or relatives? Three times a week 04/19/2022 How often do you attend chur ch or buddhism services? More than 4 times per year 04/19/2022 Do you belong to any clubs o r organizations such as voodoo groups, unions, fraternal or athletic groups, or school groups? Yes 04/19/2022 How often do you attend meet ings of the clubs or organizations you belong to? More than 4 times per year 04/19/2022 Are you , , di vorced, , never , or living with a partner? 04/19/2022 AUDIT-C Answer Date Recorded Q1: How often do you have a drink containing alc ohol? Monthly or less 04/19/2022 Q2: How many drinks containi ng alcohol do you have on a typical day when you are drinking? 1 or 2 04/19/2022 Q3: How often do you have si x or more drinks on one occasion? Never 04/19/2022 Overall Financial Resource Strain (CARDIA) Answe r Date Recorded How hard is it for you to pa y for the very basics like food, housing, medical care, and heating? Not hard at all 07/02/2023 [facility] - Occupational Stress Questionnaire Answer Date Recorded Do you feel stress - tense, restless, nervous, or anxious, or unable to sleep at night because your mind is troubled all the time - these days? To some extent 04/19/2022 Exercise Vital Sign Answer Date Recorde d On average, how many days pe r week do you engage in moderate to strenuous exercise (like a brisk walk)? 4 days 07/02/2023 On average, how many minutes do you engage in exercise at this level? 40 min 07/02/2023 Hunger Vital Sign Answer Date Recorded Within the past 12 months, y ou worried that your food would run out before you got the money to buy more. Never true 07/02/20 23 Within the past 12 months, t he food you bought just didn't last and you didn't have money to get more. Never true 07/02/2023 PRAPARE - Transportation Answer Date Re corded In the past 12 months, has l ack of transportation kept you from medical appointments or from getting medications? No 06/18 In the past 12 months, has l ack of transportation kept you from meetings, work, or from getting things needed for daily living? No 07/02/2023 Nutrition Answer Date Recorded Nutrition: EVOO Fat Source No 07/02 On average, how many serving s of fruits and vegetables do you eat per day (serving size is equal to 1 cup or approximately the size of a tennis ball)? 3-5 07/02/2023 Dental Answer Date Recorded Dental: Regular Dentist Yes 04/19/20 Employment Answer Date Recorded Employment status Employed and actively working without restrictions 07/02/2023 Housing Stability Answer Date Recorded What is your living situation today? I have a [facility] place to live 07/02/2023 Education Answer Date Recorded What is the highest level of school you have completed or the highest degree you have received? Associate degree: academic program 04/19/2022 Sex and Gender Information Value Date Recorded Sex Assigned at Female 06/28/2018 6:37 PM CDT Gender Identity Female 06/28/2018 6:37 PM CDT Sexual Orientation Straight 06/28/2018 6: 37 PM CDT documented as of this encounter Plan of Treatment Scheduled Referrals Name Type Priority Associated Diagnoses Orde r Schedule Family Medicine office visit (clinic) Outpatient Referral Routine Expected: 01/18/2024, Expires: 06/18/2024 documented as of this encounter Visit Diagnoses Not on filedocumented in this encounter Care Teams Fabric And Accessories Estimator Relationship Specialty Start Date End Date Darryl Stallings M.B.B.S., M.D. [address] [place] [phone] PCP - General Family Medicine 06/10/18 documented as of this encounter
--- OUTSIDE RECORDS SUMMARY | 2024-02-01 12:36 | XMS_ITS | Clinical Summary ---
Author Name Unknown Organization [facility] Address [address] [place] [address] Care Team Providers Care Receivable Executive Name Role Phone Unavailable Primary Care Provider Unavailabl e Source Comments You are receiving this document as you are listed as the primary care provider,follow-up provider, or the patient has been referred to you for consultation.This is in compliance with the Medicare and[facility] EHR Incentive Program,which states Providers who transition their patient to another setting of careor provider of care or refers their patient to another provider of care shouldprovide summary care record for each transition of care or referral. [facility] Allergies No known active allergies Medications Medication Sig Dispensed Refills Start Date End Date Status simvastatin (ZOCOR) 20 MG tablet Take 20 mg by mouth daily at bedtime. 12/15/2021 Active triamcinolone acetonide (KENALOG) 0.1 % ointment Apply topically two times daily as needed. 12/02/2021 Active Active Problems No known active problems Social History Tobacco Use Types Packs/Day Years Used Date Smoking Tobacco: Never Assessed Sex and Gender Information Value Date Recorded Sex Assigned at Not on file Gender Identity Not on file Sexual Orientation Not on file Plan of Treatment Health Maintenance Due Date Last Done Comments Colon Cancer Screening Plan Due 1955 Hep C Screening (Preventive Services) 1955 Medicare Annual Wellness Visit 1955 Mammogram 1955 Cholesterol 1999 Dexa 2019 COVID-19 Vaccine ( season) 2023 08/19/2021, 12/31/2020, 12/03/2020 Influenza (#1) 2023 07/29/2021, 02/0 01/2021, 08/06/2020, Additional history exists DTaP/Tdap/Td (3 - Tdap) 07/11/2024 07/11/2014, 03/05 Pneumococcal 65+ Yrs (3 - PPSV23 or PCV20) 11/21/2025 11/21/2020, 07/18/2010 Zoster/Shingles Completed 09/26/2019, 06/18, 03/18/2015 HepA Aged Out No longer eligi ble based on patient's age to complete this topic HepB Aged Out No longer eligi ble based on patient's age to complete this topic Hib Aged Out No longer eligi ble based on patient's age to complete this topic IPV (Polio) Aged Out No longer eligi ble based on patient's age to complete this topic MCV4 Aged Out No longer eligi ble based on patient's age to complete this topic Rhonda Berumen MVA/TPL Self [phone] [place] [id number] Rhonda Berumen Non-Covered/Pre pay Self [phone] [phone]
--- OUTSIDE RECORDS SUMMARY | 2024-02-01 12:36 | XMS_ITS ---
Author Name Unknown Organization [facility] Address [address] [place] [address] Care Team Providers Care Lead Software Development Engineer Name Role Phone Unavailable Unavailable Unavailable Surgery Details Not on file Complications Check Surgery Details section. Procedure Estimated Blood Loss Check Surgery Details section. Procedure Findings Check Surgery Details section. Procedure Specimens Taken Check Surgery Details section.
--- OUTSIDE RECORDS SUMMARY | 2024-02-01 12:36 | XMS_ITS | Referral Summary ---
Author Name Unknown Organization [facility] Address [address] [place] [address] Care Team Providers Care Curing Machine Operator Name Role Phone Darryl Stallings M.D. [facility] Source Comments Patient records contain information from all sites at [facility]. For routine questions regarding patient records, call [phone] during business hours, M-F 8:00 AM - 5:00 PM Central Time. Record requests for emergency care only can be directed to [phone] at any time.[facility] Encounters Date Type Department Care Team Description 12/21/2023 Orders Only [facility]CP [facility] Darryl Stallings M.B.B.S., M.D. from Last 3 Months Allergies No known active allergies Medications Medication Sig Dispensed Refills Start Date End Date Status calcium citrate/vitamin D3 (CITRACAL REGULAR ORAL) Take 1 tablet by mouth daily. 09/05/2009 Active magnesium 30 mg tablet Take 30 mg by mouth daily. 02/11/2015 Active multivitamin tablet Take 1 tablet by mouth daily. 09/06/2009 Active potassium gluconate 2.5 mEq tablet Take 1 tablet by mouth daily. 02/11/2015 Active triamcinolone (KENALOG) 0.1 % ointment Apply 1 application topically 2 (two) times a day as needed. 12/02/2021 Active alendronate (FOSAMAX) 70 mg tablet Take 1 tablet (70 mg total) by mouth every 7 (seven) days. 1 tablet weekly on an empty stomach, remain upright for at least 30 minutes 12 tablet 3 06/26/20[address] Active aspirin [address] tablet Take 1 tablet (81 mg total) by mouth daily. 08/13/2023 Active rosuvastatin (CRESTOR) 5 mg tablet Take 1 tablet (5 mg total) by mouth daily. 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 09/05/2009 Immunizations Name Administration Dates Next Due H1N1 Inj Preservative Free 08/15/2009 HZV (ZOSTAVAX) 03/18/2015 Influenza (IM) Preservative Free 07/27/2012,06/19 Influenza Split 07/18/2013,07/18/2010 Influenza TIV (IM) 07/05/2013,07/04/2010, 009 Influenza high dose QV(65 ye ars or older) (PF) 08/10/2022,07/29/2021,07/18/2013 Influenza, Injectable, Quadrivalent 08/06/2020,1 Influenza, Seasonal, Injectable 07/05/2013,07/04,07/15/2009 Influenza, Unspecified 07/26/2017,2015,07/17/2015,2013,07/18/2013,07/18/2010 PCV13 11/21/2020 PPSV23(Discontinued) 07/18/2010,07/15/2009 RZV (SHINGRIX) 09/26/2019,07/04/2019 SARS-COV-2 (COVID-19) - MODERNA(Discontinued) 12/31/2020,12/03/2020 Td Preservative Free (TENIVA C, DECAVAC) 07/11/2014 Tdap 12/08/2022,03/05/2009 influenza high dose (65 year s or older) (PF) 07/18/2013 influenza vaccine quad (FLUZONE/FLUARIX) (6 months and older)(PF) 11/21/2020,07/04/2019 Social History Tobacco Use Types Packs/Day Years Used Date Smoking Tobacco: Never Smokeless Tobacco: Never Tobacco Cessation:Counseling Given: Not Answered Comments:Never used Alcohol Use Standard Drinks/Week Comments [...] 04/19/2022 How often do you attend chur or jainism services? More than 4 times per year 04/19/2022 Do you belong to any clubs o r organizations such as pentecostal groups, unions, fraternal or [...] and heating? Not hard at all 07/02/2023 [facility] [place] of Occupat ional Health - Occupational Stress [...] Orientation Straight 06/28/2018 6: 37 PM CDT Last Filed Vital Signs Vital Sign Reading Time Taken Comments Blood Pressure 101/67 08/13/2023 12:59 PM CDT Pulse 65 08/13/2023 12:59 PM CDT Temperature - - Respiratory Rate - - Oxygen Saturation - - Inhaled Oxygen Concentration - - Weight 62.1 kg (136 lb 14.5 oz) 023 12:59 PM CDT Height 173.5 cm (5' 8.31) 08/13/2023 1 2:59 PM CDT Body Mass Index 20.63 08/13/2023 12:59 PM CDT Plan of Treatment Not on file Procedures Procedure Name Priority Date/Time Associated Diagnosis Comments COMPREHENSIVE METABOLIC PANEL, S/P Routine 08/13/2023 9:49 AM CDT Palpitations Syncope BI BREAST SCREENING BILATERAL WITH TOMOSYNTHESIS RAD - Routine (most inpatients and all outpatients) 07/06/2023 10:59 AM CDT Screening Mammogram Average Risk Patient COLOGUARD Routine 09/22/2022 7:55 AM CRM ANALYST Screening Cancer Colon from Last 3 Months or Most Recently Relevant to Health Maintenance Results * (ABNORMAL) Comprehensive Metabolic Panel (08/13/2023 9:49 AM CDT) Potassium, S 4.4 3.6 - 5.2 mmol/L 08/13/2023 11:12 AM CDT DTL Sodium, S 143 135 - 145 mmol/L 08/13/2023 11:12 AM CDT DTL Chloride, S 106 98 - 107 mmol/L 08/13/2023 11:12 AM CDT DTL Bicarbonate, S 27 22 - 29 mmol/L 08/13/2023 11:12 AM CDT DTL Anion Gap 10 7 - 15 08/13/2023 11:12 AM CDT DTL BUN (Blood Urea Nitrogen), S 19 6 - 21 mg/dL 08/13/2023 11:12 AM CDT DTL Creatinine 0.88 0.59 - 1.04 mg/dL 08/13/2023 11:12 AM CDT DTL Estimated GFR (eGFR) 72 >=60 mL/min/BS A 08/13/2023 11:12 AM CDT DTL Comment: Estimated GFR calculated using the 2020 CKD_EPI creatinine equation. Calcium, Total, S 9.0 8.8 - 10.2 mg/dL 08/13/2023 11:12 AM CDT DTL Glucose, S 55(L) 70 - 140 mg/dL 08/13/2023 11:12 AM CDT DTL Protein, Total, S 6.5 6.3 - 7.9 g/dL 08/13/2023 11:12 AM CDT DTL Albumin, S 3.8 3.5 - 5.0 g/dL 08/13/2023 11:12 AM CDT DTL Aspartate Aminotransferase (AST), S 25 8 - 43 U/L 08/13/2023 11:12 AM CDT DTL Alkaline Phosphatase, S 60 35 - 104 U/L 08/13/2023 11:12 AM CDT DTL Alanine Aminotransferase (ALT), S 22 7 - 45 U/L 08/13/2023 11:12 AM CDT DTL Bilirubin, Total, S 0.3 0.0 - 1.2 mg/dL 08/13/2023 11:12 AM CDT DTL Blood (Blood, Venous) 08/13/2023 9:49 AM CDT 08/13/2023 10:46 AM CDT Davida Denis APRN, C.N.P. [place] [address], [facility] DTL [facility] [address] [place] [address] * BI Breast Screening Bilateral with Tomosynthesis (07/06/2023 10:59 AM CDT) Anatomical Region Laterality Modality Breast, Breast Imaging RST L OS, Breast Imaging ARZ LOS, Breast Imaging FLA LOS Bilateral Mammography 07/06/2023 12:4 1 PM CDT Impressions 07/06/2023 12:43 PM CDT Benign. RECOMMENDATION: ??Annual Screening Mammogram ASSESSMENT: ??BI-RADS: 2: Benign. Narrative 07/06/2023 12:43 PM CDT EXAM: ??BI BREAST SCREENING BILATERAL WITH TOMOSYNTHESIS Current study was evaluated with a Computer Aided Detection (CAD) system. INDICATION: ??Screening mammogram. COMPARISON: ??Prior exam(s) were available and reviewed for comparison. DENSITY: ??c. The breast(s) are heterogeneously dense, which may obscure small masses. FINDINGS: ??No mammographic findings of malignancy. Posttreatment changes lower inner right breast. No significant interval change. Procedure Note Tien Dc M.D., Ph.D. - 07/06/2023 EXAM: BI BREAST SCREENING BILATERAL WITH TOMOSYNTHESIS Current study was evaluated with a Computer Aided Detection (CAD) system. INDICATION: Screening mammogram. COMPARISON: Prior exam(s) were available and reviewed for comparison. DENSITY: c. The breast(s) are heterogeneously dense, which may obscuresmall masses. FINDINGS: No mammographic findings of malignancy. Posttreatment changeslower inner right breast. No significant interval change. IMPRESSION: Benign. RECOMMENDATION: Annual Screening Mammogram ASSESSMENT: BI-RADS: 2: Benign. [facility] * Cologuard-Sent Out Lab (09/22/2022 7:55 AM CRM ANALYST) Result Negative Negative 09/27/2022 7:20 AM CRM ANALYST EXLI Comment: NEGATIVE TEST RESULT. A negative Cologuard result indicates a low likelihood that a colorectal cancer (CRC) or advanced adenoma (adenomatous polyps with more advanced pre-malignant features) ??is present. The chance that a person with a negative Cologuard test has a colorectal cancer is less than 1 in 1500 (negative predictive value >99.9%) or has an ??advanced adenoma is less than ??5.3% (negative predictive value 94.7%). These data are based on a prospective cross-sectional study of 10,000 individuals at average risk for colorectal cancer who were screened with both Cologuard and colonoscopy. (Rowena Du al, N Engl J Med 2014;370(14):5874-2515) The normal value (reference range) for this assay is negative. COLOGUARD RE-SCREENING RECOMMENDATION: Periodic colorectal cancer screening is an important part of preventive healthcare for asymptomatic individuals at average risk for colorectal cancer. ??Following a negative Cologuard result, the [place] [employer] Society and U.S. Multi-Society Task Force screening guidelines recommend a Cologuard re-screening interval of 3 years. References: [place] [employer] Guideline for Colorectal Cancer Screening: https://www.cancer.org/cancer/rrjqi-sydspz-cpduxt/detection- diagnosis-staging/acs-recommendations.html.; Griffin DK, James RICH, Thomas PoonK, Colorectal Cancer Screening: Recommendations for Physicians and Patients from the U.S. Multi-Society Task Force on Colorectal Cancer Screening , Am J Gastroenterology 2017; 112:9463-7105. TEST DESCRIPTION: Composite algorithmic analysis of stool DNA-biomarkers with hemoglobin immunoassay. ?? Quantitative values of individual biomarkers are not reportable and are not associated with individual biomarker result reference ranges. Cologuard is intended for colorectal cancer screening of adults of either sex, 45 years or older, who are at average-risk for colorectal cancer (CRC). Cologuard has been approved for use by the U.S. FDA. The performance of Cologuard was established in a cross sectional study of average-risk adults aged 50-84. Cologuard performance in patients ages 45 to 49 years was estimated by sub-group analysis of near-age groups. Colonoscopies performed for a positive result may find as the most clinically significant lesion: colorectal cancer [4.0%], advanced adenoma (including sessile serrated polyps greater than or equal to 1cm diameter) [20%] or non- advanced adenoma [31%]; or no colorectal neoplasia [45%]. These estimates are derived from a prospective cross-sectional screening study of 10,000 individuals at average risk for colorectal cancer who were screened with both Cologuard and colonoscopy. (Rowena Du al, N Engl J Med 2014;370(14):8641-6810.) Cologuard may produce a false negative or false positive result (no colorectal cancer or precancerous polyp present at colonoscopy follow up). A negative Cologuard test result does not guarantee the absence of CRC or advanced adenoma (pre-cancer). The current Cologuard screening interval is every 3 years. ([place] [employer] and U.S. Multi-Society Task Force). Cologuard performance data in a 10,000 patient pivotal study using colonoscopy as the reference method can be accessed at the following location: www.[employer]/results. Additional description of the Cologuard test process, warnings and precautions can be found at www.cologuard.com. Stool (Stool) 09/22/2022 7:5 5 AM CRM ANALYST 09/23/2022 1:13 PM CRM ANALYST Darryl Johns M.D. LAB BOD Y FLUIDS AND STOOLS ORDERABLES [facility] [address] [place] [id number] EXLI [employer] [address] [place] [address], [address] [place] [address] from Last 3 Months or Most Recently Relevant to Health Maintenance Advance Directives For more information, please contact: [phone] Documents on File Type Date Recorded Patient Route Jumper Expl anation Advance Directives 01/29/2015 12:00 AM Leg acy document. See document viewer. Care Teams Curing Machine Operator Relationship Specialty Start Date End Date Darryl Stallings M.B.B.S., M.D. [address] [place], [place] [address] [phone] PCP - General Family Medicine 06/10/18
--- OUTSIDE RECORDS SUMMARY | 2024-02-01 12:36 | XMS_ITS | Clinical Summary ---
Author Name Unknown Organization [facility] Address [address] [place] [address] Care Team Providers Care Coil Winder Name Role Phone Darryl Stallings M.D. Primary Care morgan Source Comments Patient records contain information from all sites at [facility]. For routine questions regarding patient records, call [phone] during business hours, M-F 8:00 AM - 5:00 PM Central Time. Record requests for emergency care only can be directed to [phone] at any time.[facility] Allergies No known active allergies Medications [...] Site Of Laterality Unknown Female Breast 09/05/2009 Encounters Date Type Department Care Team Description 12/21/2023 Orders Only [facility] PCP [facility] MNT Darryl Stallings M.B.B.S., M.D. from Last 3 Months Immunizations Name Administration [...] quad (FLUZONE/FLUARIX) (6 months and older)(PF) 11/21/2020,07/04/2019 Family History Medical History Relation Name Comments Coronary artery disease Father Christiano Muñoz ill in 1991 Hyperlipidemia Father Christiano Lyon Hypertension Father Christiano Lyon in 1991 Sleep apnea Father Christiano Lyon Coronary artery disease Father's Sister 1 Nita bedolla Heart attack in Asthma Father's Sister 2 Lala Camarena Osteoporosis Father's Sister 2 Lala Camarena Bone leslie kage Migraines Maternal Grandmother Thuy Ga Stroke Maternal Grandmother Thuy Ga in Migraines Mother Tamiko Kiel Stroke Mother Tamiko Kiel Stroke in 2014 Osteoporosis Mother's Sister Sharona Gonzalez Breakage of both legs Coronary artery disease Paternal Grandfather Michael donohue in 1957 Stroke Paternal Grandmother Jean Pierre Lyon St roke in 1978 Relation Name Status Comments Father Christiano Lyon Father's Sister 1 Nita Abdi Father's Sister 2 Lala Camarena Maternal Grandmother Thuy Ga Mother Tamiko Leigh Mother's Sister Sharona Gonzalez Paternal Grandfather Michael Lyon Paternal Grandmother Jean [...] often do you attend chur ch or holiness services? More than 4 times per year 04/19/2022 Do you belong to any clubs o r organizations such as congregation groups, unions, fraternal or [...] and heating? Not hard at all 07/02/2023 [facility] of Occupat ional Health - Occupational Stress [...] your living situation today? I have a [facility] place to live 07/02/2023 Education Answer Date [...] 08/13/2023 12:59 PM CDT Plan of Treatment Health Maintenance Due Date Last Done Comments CT Colonography 1955 FIT 1955 Hepatitis C Screening 1955 Visit: Annual, age 65+ (or Medicare and <65) 1955 Visit: Medicare Annual Wellness 1955 Pneumococcal vaccine (65+ years) (4 of 4 - PPSV23 or PCV20) 11/21/2021 11/21/2020, 07/18/2010, 07/15/2009 Colonoscopy 05/18/2022 05/18/2012 (Perf ormed elsewhere) COVID-19 Vaccine ( - season) 2023 08/19/2021, 12/31/2020, 12/03/2020 Depression Screening (Annual PHQ-2) 10/18/2023 Fall Risk Screen (Annual) 10/18/2023 Mammogram 07/06/2024 07/06/2023, 07/0 02/2022, 03/19/2021, Additional history exists Cologuard 09/22/2025 09/22/2022 Colorectal Cancer Screening 09/22/2025 Fasting Glucose for Diabetes Screening 08/13/2026 08/13/2023, 06/21/2018, 06/30/2016, Additional history exists DTaP,Tdap,and Td Vaccines (4 - Td or Tdap) 12/08/2032 12/08/2022, 07/11/2014, 03/05/2009 Cervical Cancer Screening Discontinued 2013 (Performed elsewhere) Zoster Vaccines Completed 09/26/2019, 06/18, 03/18/2015 Influenza Vaccine Completed 07/24/2023, , 07/29/2021, Additional history exists HPV Vaccines Aged Out No longer eligi ble based on patient's age to complete this topic Procedures Procedure Name Priority Date/Time Associated Diagnosis Comments COMPREHENSIVE METABOLIC PANEL, S/P Routine 08/13/2023 9:49 AM CDT Palpitations Syncope BI BREAST SCREENING BILATERAL WITH TOMOSYNTHESIS RAD - Routine (most inpatients and all outpatients) 07/06/2023 10:59 AM CDT Screening Mammogram Average Risk Patient COLOGUARD Routine 09/22/2022 7:55 AM DIAMOND MOUNTER Screening Cancer Colon from Last 3 Months [...] Denis APRN, C.N.P. LAB BLOOD AD D-ON [facility] [address] [place] [address], [place] DTL [facility] [address] [place] [address] * BI Breast Screening Bilateral with Tomosynthesis [...] Screening Mammogram ASSESSMENT: BI-RADS: 2: Benign. Mague PIMENTEL ES * Cologuard-Sent Out Lab (09/22/2022 7:55 AM DIAMOND MOUNTER) Result Negative Negative 09/27/2022 7:20 AM DIAMOND MOUNTER EXLI Comment: NEGATIVE TEST RESULT. A negative [...] screened with both Cologuard and colonoscopy. (Rowena Sol et al, N Engl J Med 2014;370(14):5844-3941) The normal value (reference range) for this assay is negative. COLOGUARD RE-SCREENING RECOMMENDATION: Periodic colorectal cancer screening is an important part of preventive healthcare for asymptomatic individuals at average risk for colorectal cancer. ??Following a negative Cologuard result, the [place] [employer] Society and U.S. Multi-Society Task Force screening guidelines recommend a Cologuard re-screening interval of 3 years. References: [place] [employer] Guideline for Colorectal Cancer Screening: https://www.cancer.org/cancer/wwsya-jdrrnm-dmujjw/detection- diagnosis-staging/acs-recommendations.html.; Griffin DK, James RICH, Thomas PoonK, Colorectal Cancer Screening: Recommendations for Physicians and Patients from the U.S. Multi-Society Task Force on Colorectal Cancer Screening , Am J Gastroenterology 2017; 112:4557-1426. TEST DESCRIPTION: Composite algorithmic analysis of stool [...] (Rowena Du al, N Engl J Med 2014;370(14):6072-3236.) Cologuard may produce a false negative or false positive result (no colorectal cancer or precancerous polyp present at colonoscopy follow up). A negative Cologuard test result does not guarantee the absence of CRC or advanced adenoma (pre-cancer). The current Cologuard screening interval is every 3 years. ([place] [employer] Society and U.S. Multi-Society Task Force). Cologuard performance data in a 10,000 patient pivotal study using colonoscopy as the reference method can be accessed at the following location: www.[employer]/results. Additional description of the Cologuard test process, warnings and precautions can be found at www.cologuard.com. Stool (Stool) 09/22/2022 7:5 5 AM DIAMOND MOUNTER 09/23/2022 1:13 PM DIAMOND MOUNTER Darryl Johns M.D. LAB BOD Y FLUIDS AND STOOLS ORDERABLES [employer] [address] [place] [address] EXLI [employer] [address] [facility], [address] [place] [address] from Last 3 Months or Most Recently Relevant to Health Maintenance Advance Directives For more information, please contact: [phone] Documents on File Type Date Recorded Patient Ground Operations Crew Member Expl anation Advance Directives 01/29/2015 12:00 AM Leg acy document. See document viewer. Care Teams Coil Winder Relationship Specialty Start Date End Date Darryl Stallings M.B.B.SCamilo, M.Teddy. [address] [place] [address] SABINO Castellano [phone] PCP - General Family Medicine 06/10/18
--- OUTSIDE RECORDS SUMMARY | 2024-02-01 12:36 | XMS_ITS | Clinical Summary ---
Author Name Unknown Organization [facility] Address [place], [place] [address] Care Team Providers Care Oven Laborer Name Role Phone Pcp, No Primary Care Provider Unavailabl e Social History Tobacco Use Types Packs/Day Years Used Date Smoking Tobacco: Never Assessed Sex and Gender Information Value Date Recorded Sex Assigned at Not on file Gender Identity Not on file Sexual Orientation Not on file Plan of Treatment Health Maintenance Due Date Last Done Comments Tdap 1966 Depression screening for age 12+ [...] 2019 Pneumococcal series for age 65+ (1 of 1 - PCV) 2019 COVID-19 vaccine series (4 - 2022- season) 2023 08/19/2021, 12/31/2020, 12/03/2020 Influenza for age 65+ 06/18/2024 Care Teams Oven Laborer Relationship Specialty Start Date End Date Pcp, No . PCP - General 01/09/21
--- OUTSIDE RECORDS SUMMARY | 2024-02-01 12:37 | XMS_ITS | Encounter Summary ---
Author Name Unknown Organization [facility] Address [address] [place] [address] Care Team Providers Care Maintenance Planning Clerk Name Role Phone Darryl Stallings M.D. [facility] Encounter Details Date Type Department Care Team (Late st Contact Info) Description 10/27/2010 Historical Ophthalmology RST OPH Romy Alfaro M.D. Social History Tobacco Use Types Packs/Day Years Used Date Smoking Tobacco: Never Assessed Sex and Gender Information Value Date Recorded Sex Assigned at Female 06/28/2018 6:37 PM CDT Gender Identity Female 06/28/2018 6:37 PM CDT Sexual Orientation Straight 06/28/2018 6: 37 PM CDT documented as of this encounter Progress Notes * Romy Alfaro M.D. 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 She had some superior visual field loss in the right eye as well. After the surgery, the visual field in the right eye seemed back to baseline; it took about a year for the vision to grad ually improve in the left eye. She does not feel the left eye is back to baseline, but still much improvement from before the surgery. After the surgery she was having routine follow-up exams at [facility] in [place], [place] and this would narinder a two-year follow-up for her. Patient states she did have outside records sent to [place] from previous exams elsewhere and feels they may have been sentto Dr. Sandy Vigil, Endocrinology. There is no outside visual burrell scanned into the system at this time. Automated visual field completed. JAL: No outside eye note available to me. [place] [facility] - retired and they wanted to be closer to their children in the [facility]. Reviewed uploaded outside brain MRI from 12/24 which shows mass on the left side of the sella adjacent to the optic nerve. IMPRESSION / REPORT / PLAN Consult requested by: Adrianna Teresa [phone] #[phone] Pituitary tumor, with ocular findings. Decreased [...] left eye. CDM Reports - EYEGEN Id: [id number] Status: Fnl documented in this encounter Plan of Treatment Not on file documented as of this encounter Visit Diagnoses Not on filedocumented in this encounter Care Teams Maintenance Planning Clerk Relationship Specialty Start Date End Date Darryl Stallings M.B.B.S., M.D. [address] [place], [place] [address]SABINO Hartley [phone] PCP - General Family Medicine 06/10/18 documented as of this encounter
--- OUTSIDE RECORDS SUMMARY | 2024-02-01 12:37 | XMS_ITS | Encounter Summary ---
Author Name Unknown Organization [facility] Address [address] [place] [address] Care Team Providers Care Urinalysis Technician Name Role Phone Darryl Stallings M.D. Primary Care [facility] Encounter Details Date Type Department Care Team (Late st Contact Info) Description 10/14/2023 Orders Only Department of Cardiovascular Medicine in [place], [place] [address] [place] [address] Danilo Leon M.D. [address] [place] [address] Social History Tobacco Use Types Packs/Day Years [...] How often do you attend chur or adventist services? More than 4 times per year 04/19/2022 Do you belong to any clubs o r organizations such as restorationist groups, unions, fraternal or [...] and heating? Not hard at all 07/02/2023 [facility] of Occupat ional Health - Occupational Stress [...] the money to buy more. Never true 09/15/20 23 Within the past 12 months, t [...] your living situation today? I have a [facility] place to live 07/02/2023 Education Answer Date [...] on filedocumented in this encounter Care Teams Urinalysis Technician Relationship Specialty Start Date End Date Darryl Stallings M.B.B.SCamilo, MRosa. [address] [place] [address] [place] [address] PCP - General Family Medicine 06/10/18 documented as of this encounter
--- NOTE | 2024-02-01 13:00 | CT_ITS ---
Patient: TINY HERNANDEZ Facility:?[facility] Patient ID:?[id number] Site Patient ID:?[id number]. Site :?[id number] Study:?CT-Abdomen/Pelvis 67CC ISOVUE 370 AND WATER PREP-02/01/2024 2:23:09 PM Ordering Physician:?DR. GREGORIO Final Report: INDICATION: Left upper quadrant pain and bloating. History of breast cancer TECHNIQUE: CT abdomen and pelvis acquired with 67 mL Isovue 370 IV contrast. COMPARISON: 12/23/2021 abdomen ultrasound FINDINGS: Lower chest: Unremarkable. Liver: Unremarkable. Normal in size and attenuation. No masses. Gallbladder and bile ducts: Unremarkable. No stones or inflammation. No biliary dilatation. Pancreas: Unremarkable. No mass or inflammation. Spleen: Unremarkable. Normal in size. No masses. Adrenal glands: Unremarkable. No nodules. Kidneys: Unremarkable. No masses, stones, or hydronephrosis. GI tract: Unremarkable. Normal in caliber. No sign of mass or inflammation. Normal appendix. Vasculature: Unremarkable. Mesenteric arteries are patent. Lymph nodes: No lymphadenopathy. Omentum/Peritoneum/Abdominal Wall: Unremarkable. No sign of mass or infiltration. No free air or significant free fluid. Pelvis: Unremarkable. Bones: Unremarkable for age. IMPRESSION: Unremarkable abdomen pelvis CT. No cause identified for the patient`s symptoms. Please note that all CT scans at this facility use dose modulation, iterative reconstruction, and/or weight-based dosing when appropriate to reduce radiation dose to as low as reasonably achievable. Dictated by Vu Strickland MD @ 02/02/2024 11:21:44 AM Signed by:?Vu Strickland MD @02/02/2024 11:21:44 AM (Electronic Signature)
[2024-02-01 13:07] LABS: Creatinine* 0.7 mg/dL (0.5-1.5); Estimated Glomerular Filt Rate 94 ml/min
== END 2024-02-01 12:32 | disposition home or self-care (01) ==
LOC: CT 12:32
PROVIDERS: PCP Internal Medicine; Visit Provider Internal Medicine
DX: R10.12 Left upper quadrant pain (principal); Z85.3 Personal history of malignant neoplasm of breast
CPT/HCPCS: 36415; 74177; 82565; Q9967

== ENCOUNTER 2025-01-30 08:42 | Outpatient (CLI) | payer MEDICARE, BC, SELFPAY | END 2025-01-30 08:43 | disposition home or self-care (01) | LOC: NFLDREF 02-02 13:14 | PROVIDERS: PCP Internal Medicine; Referring Provider Internal Medicine; Visit Provider Internal Medicine | DX: M81.0 Age-related osteoporosis without current pathological fracture (principal); E78.5 Hyperlipidemia, unspecified | CPT/HCPCS: 80053; 80061; 82306 ==